=== PATIENT | male | born 1935 | race African-American/Black ===

== ENCOUNTER 2018-03-29 14:57 | Observation (INO) ==
[2018-03-29 15:39] LABS: Basophils % 0.6 % (0.1-2.0); Eosinophils # 0.2 K/mm3 (0.0-0.4); Eosinophils % 2.3 % (0.1-12.0); Hematocrit 48.4 % (42.0-52.0); Hemoglobin 15.4 g/dL (14.1-18.0); Lymphocytes # 1.5 K/mm3 (0.7-4.5); Lymphocytes % 23.3 K/mm3 (10-50); Mean Corpuscular HGB Conc 31.7 g/dL (31.8-35.4); Mean Corpuscular Hemoglobin 27.6 pg (27.0-31.2); Mean Platelet Volume 7.3 fl (7.4-10.4); Monocytes # 0.6 K/mm3 (0.1-1.0); Monocytes % 9.4 % (1.7-9.3); Neutrophils # 4.3 K/mm3 (1.8-7.8); Neutrophils % 64.4 % (37.0-80.0); Platelet Count 234 K/mm3 (142-424); Red Blood Count 5.56 M/mm3 (4.60-6.20); Red Cell Distribution Width 15.4 % (11.5-17.5); White Blood Count 6.6 K/mm3 (4.8-10.8)
[2018-03-29 16:03] LABS: Alanine Aminotransferase 24 U/L (12-78); Albumin Level 3.7 gm/dL (3.4-5.0); Albumin/Globulin Ratio 0.8 (1.1-1.8); Alkaline Phosphatase 129 U/L (46-116); Aspartate Amino Transferase 21 U/L (15-37); Bilirubin,Total 0.4 mg/dL (0.2-1.0); Blood Urea Nitrogen 23 mg/dL (7-18); Calcium 9.3 mg/dL (8.5-10.1); Carbon Dioxide 21 mmol/L (21.0-32.0); Chloride 106 mmol/L (98-107); Creatine Kinase 154 U/L (39-308); Globulin 4.4 gm/dl (1.3-3.2); Glucose 119 mg/dL (74-106); Sodium 140 mmol/L (136-145); Total Protein,Serum 8.1 gm/dL (6.4-8.2)
--- NOTE | 2018-03-29 16:27 | Emergency Department Note ---
ED Disposition Clinical Impression: COPD with exacerbation, Lung cancer, Tobacco use Disposition: Still a Patient Condition on Discharge: Fair Referrals: Annette Lorenz APRN [Primary Care Provider] - - Critical Care Critical Care Time: No Attestation: On 03/29/18, the high probability of a clinically significant, sudden or life threatening deterioration of the following system(s) required my full and direct attention, intervention and personal management. The time I documented below is in addition to time spent performing reported procedures but includes the following listed in this critical care notation. Medical Decision Making - Medical Records Medical records reviewed: Yes: I reviewed the patient's medical records. - Gabo Inquiry Pt receiving controlled substance: No Gabo was queried for this patient: No Vital Signs: 03/29/18 15:02 03/29/18 15:10 03/29/18 16:17 Temperature 97.8 F Temperature Source Axillary Pulse Rate 96 H Pulse Rate [Right Brachial] 96 H 92 H Respiratory Rate 20 20 Blood Pressure [Right Arm] 113/70 136/72 Blood Pressure Mean [Right Arm] 84 93 Blood Pressure Source [Right Arm] Automatic Cuff Automatic Cuff Blood Pressure Position [Right Arm] Sitting Sitting 02 Sat by Pulse Oximetry 95 98 Oxygen Delivery Method Room Air Room Air 03/29/18 17:30 03/29/18 17:40 Temperature Temperature Source Pulse Rate 81 78 Pulse Rate [Right Brachial] Respiratory Rate Blood Pressure [Right Arm] Blood Pressure Mean [Right Arm] Blood Pressure Source [Right Arm] Blood Pressure Position [Right Arm] 02 Sat by Pulse Oximetry Oxygen Delivery Method - Lab Data Lab Results 03/29/18 15:07: WBC 6.6, RBC 5.56, Hgb 15.4, Hct 48.4, MCV 87.0, MCH 27.6, MCHC 31.7 L, RDW 15.4, Plt Count 234, MPV 7.3 L, Neut % (Auto) 64.4, Lymph % (Auto) 23.3, Gar[place] % (Auto) 9.4 H, Eos % (Auto) 2.3, Baso % (Auto) 0.6, Neut # (Auto) 4.3, Lymph # (Auto) 1.5, [place] # (Auto) 0.6, Eos # (Auto) 0.2, Baso # (Auto) 0.0 03/29/18 15:07: Sodium 140, Potassium 4.0, Chloride 106, Carbon Dioxide 21, Anion Gap 17.0 H, BUN 23 H, Creatinine 1.14, Estimated Creat Clear 44, Estimated GFR 62, Est GFR ( Amer) 75, Glucose 119 H, Calcium 9.3, Total Bilirubin 0.4, AST 21, ALT 24, Alkaline Phosphatase 129 H, Total Creatine Kinase 154, CK-MB (CK-2) 2.0, CK-MB (CK-2) Rel Index 1.3, Troponin I < 0.02, Total Protein 8.1, Albumin 3.7, Globulin 4.4 H, Albumin/Globulin Ratio 0.8 L Result diagrams: 03/29/18 15:07 03/29/18 15:07 Orders (Tests/Meds): ED MEDICATIONS Generic Name Dose Route Start Last Admin Trade Name Freq PRN Reason Stop Dose Admin Albuterol/Ipratropium 3 ml 03/29/18 16:30 03/29/18 18:12 Duoneb 3ml [facility] 04/28/18 16:29 3 ml Q1H VIRA Administration Ceftriaxone Sodium 1 gm/ 50 mls @ 100 mls/hr 03/29/18 16:30 03/29/18 17:18 Sodium Chloride IV 04/12/18 16:29 100 mls/hr Q24H VIRA Administration Protocol Discontinued Medications Generic Name Dose Route Start Last Admin Trade Name Freq PRN Reason Stop Dose Admin Albuterol/Ipratropium 3 ml 03/29/18 15:07 03/29/18 15:10 Duoneb 3ml [facility] 03/29/18 15:08 3 ml ONCE ONE Administration Methylprednisolone Sodium Succinate 125 mg 03/29/18 16:23 03/29/18 17:15 Solu-Medrol 125mg/2ml Vial IV 03/29/18 16:24 125 mg ONCE ONE Administration ORDERS Category Date Time Status Blood Culture Stat Micro 03/29/18 15:07 Received - Radiology Data #1 Image(s): Chest Image Reviewed: Yes I reviewed the patient's radiology image Preliminary Findings: Abnormal Chronic changes with left perihilar mass no acute change. Medical Decision Narrative: 89 sinus rhythm with poor R-wave progression no ST elevation or T-wave inversions no acute findings. After 2 DuoNeb's and steroids IV he felt 50% better and started wheezing. I called and discussed with his primary care physician Dr. Umana who agreed to admit him for IV steroids, IV antibiotics and nebulizer treatment. She was agreeable. Resp/SOB HPI - General Chief Complaint: Shortness of Breath/Dyspnea Stated Complaint: SOA Time Seen by Provider: 03/29/18 15:15 Mode of Arrival: Ambulatory Limitations: No Limitations Description of Symptoms (Recalled from ER Triage Doc. by RN): Patient endorsing SOA for a couple weeks but worse today. Dyspnea with exertion. - History of Present Illness 83 years old -[place] male with history of COPD lung cancer who continues to smoke. He presented to the ED with a 3 week history of progressive shortness of breath with no fever no chills no productive sputum no chest pain. He denies nausea vomiting diarrhea dysuria or hematuria. MD Complaint: shortness of breath Onset (ago): week(s) (3 weeks3 weeks.) Context: occurred during exertion Severity: mild Consistency/Duration: constant Relieving factors: rest Exacerbating factors: exertion Known history of: COPD Associated symptoms: denies other symptoms Treatment prior to arrival: none - Related Data Home Medications Medication Instructions Recorded Confirmed amlodipine 5 mg tablet 5 mg PO DAILY tab 01/18/18 aspirin 325 mg tablet 325 mg PO DAILY PRN tab 01/18/18 atorvastatin 10 mg tablet 10 mg PO DAILY tab 01/18/18 buspirone 15 mg tablet 15 mg PO BID 01/18/18 glycopyrrolate 9 mcg-formoterol 2 puff INHALATION BID 01/18/18 4.8 mcg HFA aerosol inhaler ipratropium-albuterol 0.5 mg-3 3 ml INHALATION QID ml 01/18/18 mg(2.5 mg base)/3 mL nebulization soln metoprolol tartrate 50 mg tablet 50 mg PO BID 01/18/18 omeprazole magnesium 20 mg 20 mg PO DAILY tab 01/18/18 tablet,delayed release tamsulosin 0.4 mg capsule 0.4 mg PO DAILY cap 01/18/18 Previous Rx's Medication Instructions Recorded acetaminophen 300 mg-codeine 30 mg 1 tab PO Q8H PRN #90 tab 01/19/18 tablet gabapentin 400 mg capsule 400 mg PO TID #90 cap 01/19/18 famotidine 20 mg tablet 20 mg PO BID #180 tab 02/09/18 ipratropium-albuterol 0.5 mg-3 3 ml INHALATION Q4-6H PRN #180 ml 02/09/18 mg(2.5 mg base)/3 mL nebulization soln diltiazem CD 240 mg 240 mg PO DAILY #90 cap 03/27/18 capsule,extended release 24 hr Allergies Allergy/AdvReac Type Severity Reaction Status Date / Time tramadol [TRAMADOL] Allergy Unknown HIVES/ITCHI Verified 03/29/18 15:06 [facility] History I have reviewed the patient's past medical history: Yes Medical History: Reports:: Anxiety, Cancer, Chronic Obstructive Pulmonary Disease (COPD), Gastroesophageal Reflux Disease(GERD), Hyperlipidemia Denies:: Diabetes Mellitus Type 2 Comment: ENLARGED PROSTATE, KNEE PAIN AND SWELLING,NEUROPATHY, DIZZY SPELLS Other Surgeries: Yes: Cancer Surgery, Colonoscopy, Other Amputation: No 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 - Social History Smoking Status: Current every day smoker Tobacco Type: cigarettes # Packs/Day (cigarettes): 1 Alcohol Intake: never Substance Use Type: denies use Occupational Status: retired Housing: apartment Household Members: none - Psychiatric History Expresses thoughts of harming self/others: None Suicide Plan Description: No Plan Pschychiatric History:: Reports:: Anxiety Family Hx:: Non-contributory ROS Obtained: Yes All systems reviewed & no additional complaints Physical Exam - General General appearance: alert, in no apparent distress - Head Head exam: atraumatic, normocephalic, normal inspection - Eye Eye exam: Present: normal appearance, PERRL, EOMI - ENT ENT exam: Present: normal exam, normal oropharynx, mucous membranes moist, TM's normal bilaterally, normal external ear exam - Neck Neck exam: Present: normal inspection, full ROM, trachea midline. Absent: meningismus, lymphadenopathy - Chest Chest inspection: Present: normal inspection, symmetric chest wall rise. Absent : tenderness - Respiratory Respiratory exam: Present: other (Diminished air entry bilateral. ) - Cardiovascular Cardiovascular exam: Present: regular rate, normal rhythm. Absent: JVD - Abdominal Exam Abdominal exam: Present: soft, normal bowel sounds. Absent: distention, tenderness, guarding - Extremities Exam Extremities exam: Present: normal inspection, full ROM, normal capillary refill. Absent: calf tenderness - Back Exam Back exam: Present: normal inspection. Absent: tenderness - Neurological Exam Neurological exam: Present: alert, oriented X3, CN II-XII intact, motor sensory deficit, reflexes normal (Patient is in no cardiopulmonary distress he provided history. ) - Psychiatric Psychiatric exam: Present: normal affect, normal mood - Skin Skin exam: Present: warm, dry, intact, normal color - Lymphatic Lymphatic Findings: no adenopathy
[2018-03-30 06:29] LABS: Basophils % 0.1 % (0.1-2.0); Eosinophils % 0.9 % (0.1-12.0); Hematocrit 46.2 % (42.0-52.0); Lymphocytes # 0.5 K/mm3 (0.7-4.5); Lymphocytes % 10.8 K/mm3 (10-50); Mean Corpuscular HGB Conc 32.5 g/dL (31.8-35.4); Mean Corpuscular Hemoglobin 28.2 pg (27.0-31.2); Mean Platelet Volume 7.7 fl (7.4-10.4); Monocytes # 0.2 K/mm3 (0.1-1.0); Monocytes % 3.3 % (1.7-9.3); Neutrophils # 4.1 K/mm3 (1.8-7.8); Neutrophils % 84.8 % (37.0-80.0); Platelet Count 194 K/mm3 (142-424); Red Blood Count 5.31 M/mm3 (4.60-6.20); Red Cell Distribution Width 15.3 % (11.5-17.5); White Blood Count 4.8 K/mm3 (4.8-10.8)
[2018-03-30 06:38] LABS: Albumin Level 3.3 gm/dL (3.4-5.0); Albumin/Globulin Ratio 0.8 (1.1-1.8); Anion Gap 17.5 mEq/L (5-15); Bilirubin,Total 0.3 mg/dL (0.2-1.0); Calcium 9.2 mg/dL (8.5-10.1); Globulin 4.2 gm/dl (1.3-3.2); Potassium 3.5 mmoL/L (3.5-5.1); Total Protein,Serum 7.5 gm/dL (6.4-8.2)
--- NOTE | 2018-03-30 07:32 | Pharmacy Consult Notes ---
[facility] Pharmacy VTE Monitoring - Patient Demographics Admission date: 03/29/18 Report Date: 03/30/18 Time: 07:31 Allergies/Adverse Reactions: Patient Allergies tramadol [TRAMADOL] Allergy (Unknown, Verified 03/29/18 15:06) HIVES/ITCHING Height: 1.78 m Weight: 61.944 kg Patient Problems: Current Active Problems COPD with exacerbation (Acute) Lung cancer (Acute) Tobacco use (Acute) - VTE Risk Labs: VTE Related Lab Results Hgb 15.0 g/dL (14.1-18.0) 03/30/18 06:00 Hct 46.2 % (42.0-52.0) 03/30/18 06:00 Plt Count 194 K/mm3 (142-424) 03/30/18 06:00 BUN 19 mg/dL (7-18) H 03/30/18 06:00 Creatinine 0.96 mg/dL (0.70-1.30) 03/30/18 06:00 Estimated Creat Clear 51 mL/min (0-300) 03/30/18 06:00 Clinical Trial Participant: No - Prophylaxis VTE Prophylaxis Ordered?: Yes Types of VTE Prophylaxis: TEDS Knee High Location of Applied Device: Bilateral Lower Extremeties
--- NOTE | 2018-03-30 13:07 | H&P/Discharge Summary ---
General - General Admission date:: 03/29/18 Discharge date: 03/30/18 *Admission Date: 03/29/18 *Chief complaint: sob *History of present illness: this bm who has known copd and has been on home o2/inhalers and nebulizer presents to the ed with diff breathing despite op treatment - he as seen in the ed -3 years old -[place] male with history of COPD lung cancer who continues to smoke. He presented to the ED with a 3 week history of progressive shortness of breath with no fever no chills no productive sputum no chest pain. He denies nausea vomiting diarrhea dysuria or hematuria. [facility] History I have reviewed the patient's past medical history: Yes Medical History: Reports:: Anxiety, Cancer, Chronic Obstructive Pulmonary Disease (COPD), Gastroesophageal Reflux Disease(GERD), Hyperlipidemia Denies:: Diabetes Mellitus Type 2 Other Surgeries: Yes: Cancer Surgery, Colonoscopy, Other Amputation: No Fractures: No - *Social History Smoking Status: Current every day smoker Tobacco Type: cigarettes # Packs/Day (cigarettes): 1 Alcohol Intake: former Substance Use Type: denies use Occupational Status: retired Housing: apartment Household Members: none - Psychiatric History Expresses thoughts of harming self/others: None Suicide Plan Description: No Plan Pschychiatric History:: Reports:: Anxiety *Family Hx:: Non-contributory Review of Systems - Review of Systems Review of systems:: pertinent systems reviewed and negative unless documented below - Constitutional Reports lack of energy, Denies fever(s) - Eyes Denies change in vision - ENT Denies difficulty swallowing - *Cardiovascular Denies chest pain at rest - *Respiratory Reports cough, Reports shortness of breath - *Gastrointestinal Denies vomiting - *Musculoskeletal Denies joint pain, Denies joint swelling - Integumentary/Breasts Denies rash - *Neurologic Denies localized weakness - Psychiatric Denies anxiety Exam Vital signs and Labs for Last 24 Hours: Temp Pulse Resp BP Pulse Ox 98.0 F 111 H 24 96/57 98 03/30/18 07:34 03/30/18 07:34 03/30/18 07:34 03/30/18 07:34 03/30/18 07:34 Laboratory Results - last 24 hr 03/29/18 15:07: WBC 6.6, RBC 5.56, Hgb 15.4, Hct 48.4, MCV 87.0, MCH 27.6, MCHC 31.7 L, RDW 15.4, Plt Count 234, MPV 7.3 L, Neut % (Auto) 64.4, Lymph % (Auto) 23.3, [place] % (Auto) 9.4 H, Eos % (Auto) 2.3, Baso % (Auto) 0.6, Neut # (Auto) 4.3, Lymph # (Auto) 1.5, [place] # (Auto) 0.6, Eos # (Auto) 0.2, Baso # (Auto) 0.0 03/29/18 15:07: Sodium 140, Potassium 4.0, Chloride 106, Carbon Dioxide 21, Anion Gap 17.0 H, BUN 23 H, Creatinine 1.14, Estimated Creat Clear 44, Estimated GFR 62, Est GFR ( Amer) 75, Glucose 119 H, Calcium 9.3, Total Bilirubin 0.4, AST 21, ALT 24, Alkaline Phosphatase 129 H, Total Creatine Kinase 154, CK-MB (CK-2) 2.0, CK-MB (CK-2) Rel Index 1.3, Troponin I < 0.02, Total Protein 8.1, Albumin 3.7, Globulin 4.4 H, Albumin/Globulin Ratio 0.8 L 03/30/18 06:00: WBC 4.8 D, RBC 5.31, Hgb 15.0, Hct 46.2, MCV 87.0, MCH 28.2, MCHC 32.5, RDW 15.3, Plt Count 194, MPV 7.7, Neut % (Auto) 84.8 H, Lymph % (Auto ) 10.8, [place] % (Auto) 3.3, Eos % (Auto) 0.9, Baso % (Auto) 0.1, Neut # (Auto) 4.1, Lymph # (Auto) 0.5 L, [place] # (Auto) 0.2, Eos # (Auto) 0.0, Baso # (Auto) 0.0 03/30/18 06:00: Sodium 139, Potassium 3.5, Chloride 104, Carbon Dioxide 21, Anion Gap 17.5 H, BUN 19 H, Creatinine 0.96, Estimated Creat Clear 51, Estimated GFR 75, Est GFR ( Amer) 91 D, Glucose 154 H D, Calcium 9.2, Total Bilirubin 0.3, AST 22, ALT 25, Alkaline Phosphatase 122 H, Total Protein 7.5, Albumin 3.3 L D, Globulin 4.2 H, Albumin/Globulin Ratio 0.8 L I & O for Last 24 hours: Intake & Output 03/28/18 03/29/18 03/30/18 03/31/18 11:59 11:59 11:59 11:59 Intake Total 1205 / 1205 Output Total 550 / 550 Balance 655 / 655 Weight 136 lb 9 oz - Constitutional no acute distress, thin - *Routine HEENT Exam Head: Present: normocephalic Eye: Present: EOMI, PERRL ENT: Present: mucous membranes dry - *Routine Neck Exam Present: supple - *Routine Respiratory Exam Present: decreased breath sounds, rhonchi. Absent: respiratory distress - *Routine Cardiovascular Exam Present: RRR, murmur, S4 - *Routine Abdominal Exam Present: soft - *Routine Extremities Exam Absent: edema - *Routine Skin Exam Present: intact - *Routine Neurological Exam Present: alert, oriented X3, CN II-XII intact - Routine Psychiatric Exam Present: normal affect Hospital Course Hospital Course: pt with good response to iv steroids and resp care - Results Labs on day of discharge: Labs from last 24 hours 03/30/18 03/30/18 03/29/18 06:00 06:00 15:07 WBC 4.8 D RBC 5.31 Hgb 15.0 Hct 46.2 MCV 87.0 MCH 28.2 MCHC 32.5 RDW 15.3 Plt Count 194 MPV 7.7 Neut % (Auto) 84.8 H Lymph % (Auto) 10.8 Bl[place] % (Auto) 3.3 Eos % (Auto) 0.9 Baso % (Auto) 0.1 Neut # (Auto) 4.1 Lymph # (Auto) 0.5 L [place] # (Auto) 0.2 Eos # (Auto) 0.0 Baso # (Auto) 0.0 Sodium 139 140 Potassium 3.5 4.0 Chloride 104 106 Carbon Dioxide 21 21 Anion Gap 17.5 H 17.0 H BUN 19 H 23 H Creatinine 0.96 1.14 Estimated Creat Clear 51 44 Estimated GFR 75 62 Est GFR ( Amer) 91 D 75 Glucose 154 H D 119 H Calcium 9.2 9.3 Total Bilirubin 0.3 0.4 AST 22 21 ALT 25 24 Alkaline Phosphatase 122 H 129 H Total Creatine Kinase 154 CK-MB (CK-2) 2.0 CK-MB (CK-2) Rel Index 1.3 Troponin I < 0.02 Total Protein 7.5 8.1 Albumin 3.3 L D 3.7 Globulin 4.2 H 4.4 H Albumin/Globulin Ratio 0.8 L 0.8 L 03/29/18 15:07 WBC 6.6 RBC 5.56 Hgb 15.4 Hct 48.4 MCV 87.0 MCH 27.6 MCHC 31.7 L RDW 15.4 Plt Count 234 MPV 7.3 L Neut % (Auto) 64.4 Lymph % (Auto) 23.3 Blanco % (Auto) 9.4 H Eos % (Auto) 2.3 Baso % (Auto) 0.6 Neut # (Auto) 4.3 Lymph # (Auto) 1.5 [place] # (Auto) 0.6 Eos # (Auto) 0.2 Baso # (Auto) 0.0 Sodium Potassium Chloride Carbon Dioxide Anion Gap BUN Creatinine Estimated Creat Clear Estimated GFR Est GFR ( Amer) Glucose Calcium Total Bilirubin AST ALT Alkaline Phosphatase Total Creatine Kinase CK-MB (CK-2) CK-MB (CK-2) Rel Index Troponin I Total Protein Albumin Globulin Albumin/Globulin Ratio DS: Diagnosis - Discharge Diagnosis (1) COPD with exacerbation Status: Acute (2) Tobacco use Status: Acute Discharge Medications Discharge Medications: Home Medications Medication Instructions Recorded Confirmed Type amlodipine 5 mg tablet 5 mg PO DAILY tab 01/18/18 03/30/18 History aspirin 325 mg tablet 325 mg PO DAILY PRN tab 01/18/18 03/30/18 History atorvastatin 10 mg tablet 10 mg PO DAILY tab 01/18/18 03/30/18 History buspirone 15 mg tablet 15 mg PO BID 01/18/18 03/30/18 History glycopyrrolate 9 mcg-formoterol 2 puff INHALATION BID 01/18/18 03/30/18 History 4.8 mcg HFA aerosol inhaler metoprolol tartrate 50 mg tablet 50 mg PO BID 01/18/18 03/30/18 History omeprazole magnesium 20 mg 20 mg PO DAILY tab 01/18/18 03/30/18 History tablet,delayed release tamsulosin 0.4 mg capsule 0.4 mg PO DAILY cap 01/18/18 03/30/18 History Famotidine [Acid Marionette Performer] 20 mg PO BID 03/29/18 03/29/18 History Gabapentin [Gabapentin 400mg Cap] 400 mg PO TID 03/29/18 03/29/18 History dilTIAZem HCl [Diltiazem 240mg 240 mg PO DAILY 03/29/18 03/29/18 History 24Hr ER Cap] Ipratropium/Albuterol Sulfate 3 ml INHALATION QID 03/30/18 03/30/18 History [Albut-Ipratropium 2.5mg-0.5mg/3 ml] Ipratropium/Albuterol Sulfate 3 ml IH Q4-6H PRN 03/30/18 03/30/18 History [Duoneb 3mL neb] LORazepam [Ativan] 0.5 mg PO HS 03/30/18 03/30/18 History
== END 2018-03-30 15:05 | disposition home or self-care (01) ==
LOC: ER 14:57 → 2ND 14:57
PROVIDERS: ADMIT Emergency Medicine; ATTEND Emergency Medicine

== ENCOUNTER 2018-06-03 19:04 | Inpatient (IN) ==
[2018-06-03 19:31] LABS: Basophils # 0.1 K/mm3 (0-0.2); Basophils % 0.9 % (0.1-2.0); Eosinophils # 0.3 K/mm3 (0.0-0.4); Eosinophils % 4.7 % (0.1-12.0); Hematocrit 42.9 % (42.0-52.0); Hemoglobin 15.1 g/dL (14.1-18.0); Lymphocytes # 1.4 K/mm3 (0.7-4.5); Lymphocytes % 23.5 K/mm3 (10-50); Mean Corpuscular HGB Conc 35.1 g/dL (31.8-35.4); Mean Corpuscular Hemoglobin 31.2 pg (27.0-31.2); Mean Corpuscular Volume 88.8 fl (80-94); Mean Platelet Volume 7.5 fl (7.4-10.4); Monocytes # 0.8 K/mm3 (0.1-1.0); Monocytes % 13.5 % (1.7-9.3); Neutrophils # 3.3 K/mm3 (1.8-7.8); Neutrophils % 57.5 % (37.0-80.0); Platelet Count 217 K/mm3 (142-424); Red Blood Count 4.83 M/mm3 (4.60-6.20); Red Cell Distribution Width 15.3 % (11.5-17.5); White Blood Count 5.8 K/mm3 (4.8-10.8)
--- NOTE | 2018-06-03 19:36 | Emergency Department Note ---
ED Disposition Condition on Discharge: Undetermined - Critical Care Critical Care Time: No <Deandra Mccarty - Last Filed: 06/03/18 19:58> Condition on Discharge: Fair - Critical Care Critical Care Time: No <Dash Kerns - Last Filed: 06/03/18 22:17> Clinical Impression: COPD exacerbation Lung cancer Qualifiers: Laterality: unspecified laterality Lung location: unspecified part of lung Qualified Code(s): C34.90 - Malignant neoplasm of unspecified part of unspecified bronchus or lung Pneumonia Qualifiers: Pneumonia type: due to unspecified organism Laterality: left Lung location: lower lobe of lung Qualified Code(s): J18.1 - Lobar pneumonia, unspecified organism Disposition: Still a Patient Referrals: Jeff Umana MD [Primary Care Provider] - Attestation: On 06/03/18, the high probability of a clinically significant, sudden or life threatening deterioration of the following system(s) required my full and direct attention, intervention and personal management. The time I documented below is in addition to time spent performing reported procedures but includes the following listed in this critical care notation. Medical Decision Making - [place] Inquiry Pt receiving controlled substance: No - Lab Data Lab results reviewed: Yes: I reviewed the patient's lab results. Result diagrams: 06/03/18 19:20 06/03/18 19:20 - ECG Data Tracing #1 I reviewed this ECG and interpreted as documented below: ECG initial impression date: 06/03/18 ECG initial impression time: 19:40 ECG normal with no acute: arrhythmias, ischemia, conduction abnormalities, chamber hypertrophy Normal Sinus Rhythm: Yes <Deandra Mccarty - Last Filed: 06/03/18 19:58> - Lab Data Result diagrams: 06/03/18 19:20 06/03/18 19:20 - CT Data CT Scan: Chest Time Received: 21:[address] Reviewed: Yes: I discussed the CT results w/the radiologist - Physician Consults Physician Consulted: Tim Umana Time: 22:10 Reason -: Admission Comment/Response: Agrees to admit the patient to the hospital. We discussed the patient's clinical information, including history, exam, laboratory and radiology results and ED course. Per hospital procedure, I will write temporary bridge inpatient orders on the patient. Specific orders requested by the admitting physician: Continue antibiotics, steroids, nebulizer treatments <Dash Kerns - Last Filed: 06/03/18 22:17> Vital Signs: 06/03/18 19:12 06/03/18 19:35 06/03/18 19:36 Temperature 98.8 F Temperature Source Oral Pulse Rate Pulse Rate [Right Brachial] 87 68 Respiratory Rate 18 16 Blood Pressure [Right Arm] 116/72 109/65 Blood Pressure Mean [Right Arm] 86 79 Blood Pressure Source [Right Arm] Automatic Cuff Blood Pressure Position [Right Arm] Sitting 02 Sat by Pulse Oximetry 99 100 99 Oxygen Delivery Method Nasal Cannula Nasal Cannula Oxygen Flow Rate (LPM) 2 2 06/03/18 20:03 06/03/18 20:50 06/03/18 21:23 Temperature Temperature Source Pulse Rate Pulse Rate [Right Brachial] 71 78 68 Respiratory Rate 18 20 16 Blood Pressure [Right Arm] 109/65 128/68 118/68 Blood Pressure Mean [Right Arm] 79 88 84 Blood Pressure Source [Right Arm] Automatic Cuff Automatic Cuff Blood Pressure Position [Right Arm] Sitting Sitting 02 Sat by Pulse Oximetry 100 97 99 Oxygen Delivery Method Nasal Cannula Nasal Cannula Nasal Cannula Oxygen Flow Rate (LPM) 2 2 2 06/03/18 21:39 Temperature Temperature Source Pulse Rate 69 Pulse Rate [Right Brachial] Respiratory Rate Blood Pressure [Right Arm] Blood Pressure Mean [Right Arm] Blood Pressure Source [Right Arm] Blood Pressure Position [Right Arm] 02 Sat by Pulse Oximetry 100 Oxygen Delivery Method Nasal Cannula Oxygen Flow Rate (LPM) 2 - Lab Data Lab Results 06/03/18 19:20: WBC 5.8, RBC 4.83, Hgb 15.1, Hct 42.9, MCV 88.8, MCH 31.2, MCHC 35.1, RDW 15.3, Plt Count 217, MPV 7.5, Neut % (Auto) 57.5, Lymph % (Auto) 23.5 , [place] % (Auto) 13.5 H, Eos % (Auto) 4.7, Baso % (Auto) 0.9, Neut # (Auto) 3.3, Lymph # (Auto) 1.4, [place] # (Auto) 0.8, Eos # (Auto) 0.3, Baso # (Auto) 0.1 06/03/18 19:20: Sodium 135 L, Potassium 3.7, Chloride 102, Carbon Dioxide 25, Anion Gap 11.7, BUN 15, Creatinine 0.90, Estimated Creat Clear 51, Estimated GFR 81, Est GFR ( Amer) 98, Glucose 122 H, Calcium 9.3, Total Bilirubin 0.4, AST 16, ALT 19, Alkaline Phosphatase 115, Troponin I < 0.02, Total Protein 7.9, Albumin 3.5, Globulin 4.4 H, Albumin/Globulin Ratio 0.8 L 06/03/18 19:20: Lactic Acid 1.6 06/03/18 19:20: D-Dimer 2500 H* 06/03/18 19:35: Urine Color Yellow, Urine Appearance Clear, Urine pH 7.0, Ur Specific [place] 1.020, Urine Protein Negative, Urine Glucose (UA) Negative, Urine Ketones Negative, Urine Blood Negative, Urine Nitrate Negative, Urine Bilirubin Negative, Urine Urobilinogen 0.2, Ur Leukocyte Esterase Negative, Urine WBC Occasional, Amorphous Sediment Trace Orders (Tests/Meds): ED MEDICATIONS Generic Name Dose Route Start Last Admin Trade Name Tati PRN Reason Stop Dose Admin Ceftriaxone Sodium 1 gm/ 50 mls @ 100 mls/hr 06/03/18 21:30 06/03/18 21:57 Sodium Chloride IV 06/17/18 21:29 100 mls/hr Q24H VIRA Administration Protocol Azithromycin 500 mg/ Sodium 250 mls @ 250 mls/hr 06/03/18 21:30 Chloride IV 06/17/18 21:29 Q24H VIRA Protocol Discontinued Medications Generic Name Dose Route Start Last Admin Trade Name Tati PRN Reason Stop Dose Admin Albuterol/Ipratropium 3 ml 06/03/18 21:28 06/03/18 21:37 Duoneb 3ml Neb IH 06/03/18 21:29 3 ml ONCE ONE Administration Sodium Chloride 1,000 mls @ 999 mls/hr 06/03/18 19:30 06/03/18 19:35 Sod Chlor 0.9% 1000ml Bag IV 06/03/18 20:30 999 mls/hr .Q1H1M VIRA Administration Iopamidol 70 ml 06/03/18 20:49 06/03/18 20:50 [id number]; 100ml Vial IV 06/03/18 20:50 70 ml ONCE ONE Administration Methylprednisolone Sodium Succinate 125 mg 06/03/18 21:28 06/03/18 21:57 Solu-Medrol 125mg/2ml Vial IV 06/03/18 21:29 125 mg ONCE ONE Administration Ondansetron HCl 4 mg 06/03/18 19:24 06/03/18 19:35 Zofran 4mg/2ml Vial IV 06/03/18 19:25 4 mg ONCE ONE Administration Sodium Chloride 50 ml 06/03/18 20:49 06/03/18 20:50 Rad-Ns 50ml Vial IV 06/03/18 20:50 50 ml ONCE ONE Administration Sodium Chloride 10 ml 06/03/18 20:49 06/03/18 20:50 Rad-Saline Flush 10ml Syringe IV 06/03/18 20:50 10 ml ONCE ONE Administration ORDERS Category Date Time Status CT Chest w/PE protocol [CT angio chest] Stat Cat Scan 06/03/18 19:51 Taken Blood Culture Stat Micro 06/03/18 19:35 Ordered ECG Request by Dr/Nse Stat Y 06/03/18 19:19 Ordered - CT Data Findings Narrative: Lung cancer. Linear defects on the left side, possibly residual of prior or chronic PE, but no acute PE seen. Consolidative opacity in the posterior left lung base, new from 05/23/17, measuring 3.3 x 2.8 cm. Could represent neoplastic disease versus pneumonia. ( Dash Kerns) - ECG Data Tracing #1 NSR, no change from 03/29/18; poor R w progression; NSR with fusion complexes; normal axis and intervals (Deandra Mccarty) Resp/SOB HPI - General Mode of Arrival: Wheelchair Source of Information: Patient Limitations: Physical Limitations Description of Symptoms (Recalled from ER Triage Doc. by RN): Reports chemo one week ago, and since then he has progessively gotten weaker at home. Pt has liver cancer. Reports being treated for pneumonia 2 weeks ago. Home O2 dependent. Reports nausea and vomiting. Denies abd pain, denies cp. - History of Present Illness MD Complaint: shortness of breath Onset (ago): hour(s) Context: recent illness Severity: mild Consistency/Duration: intermittent Relieving factors: oxygen Exacerbating factors: nothing Known history of: other (lung ca) Associated symptoms: denies other symptoms Treatment prior to arrival: oxygen - Related Data Home oxygen amount: 2 liters <Deandra Mccarty - Last Filed: 06/03/18 19:58> <Dash Kerns - Last Filed: 06/03/18 22:17> - General Chief Complaint: Weakness Stated Complaint: sick Time Seen by Provider: 06/03/18 19:33 - History of Present Illness Patient followed by Dr. 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 He has acute malaise, "smothering " feeling for the last few hours, feels SOB, no sputum, no fever, no calf pain, no palpitations or cephalgia, no syncope. Uses a cane to ambulate. Denies hemoptysis, denies hematemesis, denies melena. (Deandra Mccarty) - Related Data Home Medications Medication Instructions Recorded Confirmed amlodipine 5 mg tablet 5 mg PO DAILY tab 01/18/18 06/03/18 aspirin 325 mg tablet 325 mg PO DAILY PRN tab 01/18/18 06/03/18 atorvastatin 10 mg tablet 10 mg PO DAILY tab 01/18/18 06/03/18 buspirone 15 mg tablet 15 mg PO BID 01/18/18 06/03/18 glycopyrrolate 9 mcg-formoterol 2 puff INHALATION BID 01/18/18 06/03/18 4.8 mcg HFA aerosol inhaler metoprolol tartrate 50 mg tablet 50 mg PO BID 01/18/18 06/03/18 omeprazole magnesium 20 mg 20 mg PO DAILY tab 01/18/18 06/03/18 tablet,delayed release Famotidine [Acid Garde Manager] 20 mg PO BID 03/29/18 06/03/18 dilTIAZem HCl [Diltiazem 240mg 240 mg PO DAILY 03/29/18 06/03/18 24Hr ER Cap] Ipratropium/Albuterol Sulfate 3 ml IH Q4-6H PRN 03/30/18 06/03/18 [Duoneb 3mL neb] Ipratropium/Albuterol Sulfate 3 ml IH TID 06/03/18 06/03/18 [Duoneb 3mL neb] Nicotine [Nicoderm Cq 14mg] 1 patch TRANSDERMA DAILY 06/03/18 06/03/18 Tamsulosin HCl [Flomax 0.4mg 0.4 mg PO HS 06/03/18 06/03/18 capsule] Previous Rx's Medication Instructions Recorded gabapentin 400 mg capsule 400 mg PO TID 30 Days #90 cap 05/19/18 hydrocodone 5 mg-acetaminophen 325 1 tab PO BID PRN 30 Days #60 tab 05/19/18 mg tablet lorazepam 0.5 mg tablet 0.5 mg PO HS #30 tab 05/19/18 Allergies Allergy/AdvReac Type Severity Reaction Status Date / Time tramadol [TRAMADOL] Allergy Unknown HIVES/ITCHI Verified 05/19/18 13:02 [facility] History I have reviewed the patient's past medical history: Yes Medical History: Reports:: Anxiety, Cancer (liver), Chronic Obstructive Pulmonary Disease (COPD), Gastroesophageal Reflux Disease(GERD), Hyperlipidemia Denies:: Diabetes Mellitus Type 1, Diabetes Mellitus Type 2, MRSA Comment: ENLARGED PROSTATE, KNEE PAIN AND SWELLING,NEUROPATHY, DIZZY SPELLS Other Surgeries: Yes: Cancer Surgery, Colonoscopy, Other Amputation: No 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 - Social History Smoking Status: Current every day smoker Tobacco Type: cigarettes # Packs/Day (cigarettes): 1 Alcohol Intake: never Alcohol Intake Frequency:: other Substance Use Type: denies use Occupational Status: retired Housing: apartment Household Members: none - Psychiatric History Expresses thoughts of harming self/others: None Suicide Plan Description: No Plan Pschychiatric History:: Reports:: Anxiety Family Hx:: Non-contributory <Deandra Mccarty M - Last Filed: 06/03/18 19:58> ROS Obtained: Yes All systems reviewed & no additional complaints - Constitutional Constitutional: Reports fatigue, Reports malaise, Reports weakness <Deandra Mccarty M - Last Filed: 06/03/18 19:58> Physical Exam - General General appearance: alert, in no apparent distress (thin, chronically ill appearing), cachectic - Head Head exam: atraumatic, normocephalic - Eye Eye exam: Present: normal appearance, PERRL, EOMI - ENT ENT exam: Present: normal exam - Neck Neck exam: Present: normal inspection, full ROM, trachea midline. Absent: meningismus, lymphadenopathy - Respiratory Respiratory exam: Present: normal lung sounds bilaterally (decreased at bases). Absent: respiratory distress - Cardiovascular Cardiovascular exam: Present: regular rate, normal rhythm, normal heart sounds - Abdominal Exam Abdominal exam: Present: soft, normal bowel sounds. Absent: distention, tenderness, guarding, organomegaly, ascites, mass, pulsatile mass - Extremities Exam Extremities exam: Present: normal inspection, full ROM, tenderness. Absent: normal capillary refill, pedal edema, calf tenderness - Neurological Exam Neurological exam: Present: alert, oriented X3. Absent: motor sensory deficit ( speech clear and fluent; alert; cooperative; nonfocal exam) - Psychiatric Psychiatric exam: Present: normal affect - Skin Skin exam: Present: warm, intact <Deandra Mccarty - Last Filed: 06/03/18 19:58>
[2018-06-03 19:42] LABS: Microscopic, Urine URINE MICROSCOPIC (MICROSCOPIC)
[2018-06-03 19:48] LABS: Alanine Aminotransferase 19 U/L (12-78); Albumin Level 3.5 gm/dL (3.4-5.0); Albumin/Globulin Ratio 0.8 (1.1-1.8); Alkaline Phosphatase 115 U/L (46-116); Anion Gap 11.7 mEq/L (5-15); Aspartate Amino Transferase 16 U/L (15-37); Bilirubin,Total 0.4 mg/dL (0.2-1.0); Blood Urea Nitrogen 15 mg/dL (7-18); Calcium 9.3 mg/dL (8.5-10.1); Carbon Dioxide 25 mmol/L (21.0-32.0); Chloride 102 mmol/L (98-107); Globulin 4.4 gm/dl (1.3-3.2); Glucose 122 mg/dL (74-106); Potassium 3.7 mmoL/L (3.5-5.1); Sodium 135 mmol/L (136-145); Total Protein,Serum 7.9 gm/dL (6.4-8.2)
[2018-06-03 19:54] LABS: Appearance,Urine CLEAR (Clear); Bilirubin,Urine Negative (Negative); Blood, Urine Negative (Negative); Color,Urine YELLOW (Yellow); Glucose,Urine (UA) Negative (Negative); Ketones,Urine Negative (Negative); Leukocyte Esterase,Urine Negative (Negative); Protein,Urine Negative (Negative); Urobilinogen,Urine 0.2 EU/dl (0.2)
[2018-06-03 19:59] LABS: Amorphous Sediment,Urine Trace /lpf; WBC,Urine Occasional #/hpf (0-3)
--- NOTE | 2018-06-04 10:54 | History & Physical Report ---
*Admission Date: 06/04/18 *Chief complaint: sob *History of present illness: 83-year-old male presents to the ER with complaints of shortness of breath, feeling like he is smothering, feels he cant catch his breath. denies fever, calf pain, palpitations, syncope. Patient followed by Dr. 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 Patient admitted for pneumonia [facility] History I have reviewed the patient's past medical history: Yes Medical History: Reports:: Anxiety, Cancer (liver), Chronic Obstructive Pulmonary Disease (COPD), Gastroesophageal Reflux Disease(GERD), Hyperlipidemia Denies:: Diabetes Mellitus Type 1, Diabetes Mellitus Type 2, MRSA Other Surgeries: Yes: Cancer Surgery, Colonoscopy, Other Amputation: No Fractures: No - *Social History Educational Level: Attended High School Smoking Status: Current every day smoker Tobacco Type: cigarettes # Packs/Day (cigarettes): 1 Alcohol Intake: never Alcohol Intake Frequency:: other Substance Use Type: denies use Occupational Status: retired Housing: apartment Household Members: none - Psychiatric History Expresses thoughts of harming self/others: None Suicide Plan Description: No Plan Pschychiatric History:: Reports:: Anxiety *Family Hx:: Non-contributory Review of Systems - Review of Systems Review of systems:: pertinent systems reviewed and negative unless documented below - Constitutional Reports fever(s), Reports weakness - Eyes Denies blurry vision - ENT Denies post nasal drip, Denies sore throat - *Cardiovascular Reports shortness of breath, Reports shortness of breath with activity, Denies chest pain at rest - *Respiratory Reports chest congestion, Reports shortness of breath, Denies change in phlegm color - *Gastrointestinal Denies black, tarry stools - *Genitourinary Denies urinary urgency - *Musculoskeletal Denies joint swelling, Denies muscle cramps - Integumentary/Breasts Denies rash - *Neurologic Reports weakness, Denies dizziness, Denies headache(s), Denies memory loss, Denies numbness, Denies tingling/numbness/burning sensations - Psychiatric Denies anxiety - Endocrine Denies excessive sweating - Hematologic/Lymphatic Denies enlarged lymph nodes - Allergic/Immunologic Denies lip swelling Meds Home Medications Medication Instructions Recorded Confirmed Type amlodipine 5 mg tablet 5 mg PO DAILY tab 01/18/18 06/03/18 History aspirin 325 mg tablet 325 mg PO DAILY tab 01/18/18 06/04/18 History atorvastatin 10 mg tablet 10 mg PO HS tab 01/18/18 06/04/18 History buspirone 15 mg tablet 15 mg PO BID 01/18/18 06/03/18 History glycopyrrolate 9 mcg-formoterol 2 puff INHALATION BID 01/18/18 06/03/18 History 4.8 mcg HFA aerosol inhaler metoprolol tartrate 50 mg tablet 50 mg PO BID 01/18/18 06/03/18 History omeprazole magnesium 20 mg 20 mg PO DAILY tab 01/18/18 06/03/18 History tablet,delayed release Famotidine [Acid [place] Puff Maker] 20 mg PO BID 03/29/18 06/03/18 History dilTIAZem HCl [Diltiazem 240mg 240 mg PO DAILY 03/29/18 06/03/18 History 24Hr ER Cap] Ipratropium/Albuterol Sulfate 3 ml IH Q4HP PRN 03/30/18 06/04/18 History [Duoneb 3mL neb] Ipratropium/Albuterol Sulfate 3 ml IH TID 06/03/18 06/03/18 History [Duoneb 3mL neb] Nicotine [Nicoderm Cq 14mg] 1 patch TRANSDERMA DAILY 06/03/18 06/03/18 History Tamsulosin HCl [Flomax 0.4mg 0.4 mg PO HS 06/03/18 06/03/18 History capsule] Allergies Allergy/AdvReac Type Severity Reaction Status Date / Time tramadol [TRAMADOL] Allergy Unknown HIVES/ITCHI Verified 05/19/18 13:02 NG Exam Vital signs and Labs for Last 24 Hours: Temp Pulse Resp BP Pulse Ox 98.0 F 107 H 18 126/58 100 06/04/18 08:22 06/04/18 10:17 06/04/18 08:22 06/04/18 08:22 06/04/18 08:22 Laboratory Results - last 24 hr 06/03/18 19:20: WBC 5.8, RBC 4.83, Hgb 15.1, Hct 42.9, MCV 88.8, MCH 31.2, MCHC 35.1, RDW 15.3, Plt Count 217, MPV 7.5, Neut % (Auto) 57.5, Lymph % (Auto) 23.5 , [place] % (Auto) 13.5 H, Eos % (Auto) 4.7, Baso % (Auto) 0.9, Neut # (Auto) 3.3, Lymph # (Auto) 1.4, [place] # (Auto) 0.8, Eos # (Auto) 0.3, Baso # (Auto) 0.1 06/03/18 19:20: Sodium 135 L, Potassium 3.7, Chloride 102, Carbon Dioxide 25, Anion Gap 11.7, BUN 15, Creatinine 0.90, Estimated Creat Clear 51, Estimated GFR 81, Est GFR ( Amer) 98, Glucose 122 H, Calcium 9.3, Total Bilirubin 0.4, AST 16, ALT 19, Alkaline Phosphatase 115, Troponin I < 0.02, Total Protein 7.9, Albumin 3.5, Globulin 4.4 H, Albumin/Globulin Ratio 0.8 L 06/03/18 19:20: Lactic Acid 1.6 06/03/18 19:20: D-Dimer 2500 H* 06/03/18 19:35: Urine Color Yellow, Urine Appearance Clear, Urine pH 7.0, Ur Specific [place] 1.020, Urine Protein Negative, Urine Glucose (UA) Negative, Urine Ketones Negative, Urine Blood Negative, Urine Nitrate Negative, Urine Bilirubin Negative, Urine Urobilinogen 0.2, Ur Leukocyte Esterase Negative, Urine WBC Occasional, Amorphous Sediment Trace I & O for Last 24 hours: Intake & Output 06/01/18 06/02/18 06/03/18 06/04/18 11:59 11:59 11:59 11:59 Intake Total 1640 / 1640 Output Total 600 / 600 Balance 1040 / 1040 Weight 138 lb 1 oz Microbiology Reports for the Last 24 Hours: Microbiology 06/04/18 03:11 Sputum - Expectorated Sputum Gram Stain - Final - Constitutional no acute distress, thin, chronically ill appearing - *Routine HEENT Exam Head: Present: normocephalic Eye: Present: PERRL ENT: Present: mucous membranes moist - *Routine Neck Exam Present: full ROM - *Routine Respiratory Exam Present: rhonchi, wheezes, diminished air movement - *Routine Cardiovascular Exam Present: RRR - *Routine Abdominal Exam Present: soft, normoactive bowel sounds - *Routine Extremities Exam Present: full ROM - Routine Back/Spine/Pelvis Exam Back/Spine: Present: full ROM - *Routine Skin Exam Present: intact - *Routine Neurological Exam Present: alert, oriented X3 - Routine Psychiatric Exam Present: normal affect, normal thought process H&P: Result - Labs Labs: Short CBC 06/03/18 Range/Units 19:20 WBC 5.8 (4.8-10.8) K/mm3 Hgb 15.1 (14.1-18.0) g/dL Hct 42.9 (42.0-52.0) % Plt Count 217 (142-424) K/mm3 BMP 06/03/18 19:20 Sodium 135 L Potassium 3.7 Chloride 102 Carbon Dioxide 25 BUN 15 Creatinine 0.90 Glucose 122 H Calcium 9.3 Cardiac Enzymes 06/03/18 Range/Units 19:20 Troponin I < 0.02 (0.00-0.06) ng/ml Liver Function 06/03/18 Range/Units 19:20 Total Bilirubin 0.4 (0.2-1.0) mg/dL AST 16 (15-37) U/L ALT 19 (12-78) U/L Alkaline Phosphatase 115 (46-116) U/L Albumin 3.5 (3.4-5.0) gm/dL Urine 06/03/18 Range/Units 19:35 Urine Color Yellow (Yellow) Urine Appearance Clear (Clear) Urine pH 7.0 (5.0-8.5) Ur Specific [place] 1.020 (1.005-1.030) Urine Protein Negative (Negative) Urine Glucose (UA) Negative (Negative) Assessment and Plan - Assessment and plan all Dx Assessment and Plan for all problems:: Discussed patient with Dr. Umana, he will see patient later today, all orders per Dr. Umana
--- NOTE | 2018-06-04 11:27 | Pharmacy Consult Notes ---
[facility] Pharmacy VTE Monitoring - Patient Demographics Admission date: 06/04/18 Report Date: 06/04/18 Time: 11:27 Allergies/Adverse Reactions: Patient Allergies tramadol [TRAMADOL] Allergy (Unknown, Verified 05/19/18 13:02) HIVES/ITCHING Height: 1.78 m Weight: 62.624 kg Patient Problems: Current Active Problems Lung cancer (Acute) Pneumonia (Acute) COPD exacerbation (Acute) - VTE Risk Labs: VTE Related Lab Results Hgb 15.1 g/dL (14.1-18.0) 06/03/18 19:20 Hct 42.9 % (42.0-52.0) 06/03/18 19:20 Plt Count 217 K/mm3 (142-424) 06/03/18 19:20 BUN 15 mg/dL (7-18) 06/03/18 19:20 Creatinine 0.90 mg/dL (0.70-1.30) 06/03/18 19:20 Estimated Creat Clear 51 mL/min (0-300) 06/03/18 19:20 Was VTE Risk Assessment Performed: Yes VTE Risk Level: Low Risk - Prophylaxis Types of VTE Prophylaxis: TEDS Thigh High, TEDS Knee High (STEPHANE HOSE ORDERED) Location of Applied Device: Bilateral Lower Extremeties
[2018-06-05 06:39] LABS: Eosinophils % 0.3 % (0.1-12.0); Hematocrit 43.6 % (42.0-52.0); Hemoglobin 13.2 g/dL (14.1-18.0); Lymphocytes # 0.7 K/mm3 (0.7-4.5); Lymphocytes % 5.7 K/mm3 (10-50); Mean Corpuscular HGB Conc 30.4 g/dL (31.8-35.4); Mean Corpuscular Hemoglobin 27.2 pg (27.0-31.2); Mean Corpuscular Volume 89.4 fl (80-94); Mean Platelet Volume 7.5 fl (7.4-10.4); Monocytes # 0.4 K/mm3 (0.1-1.0); Monocytes % 3.5 % (1.7-9.3); Neutrophils # 10.2 K/mm3 (1.8-7.8); Neutrophils % 90.4 % (37.0-80.0); Platelet Count 233 K/mm3 (142-424); Red Blood Count 4.88 M/mm3 (4.60-6.20); Red Cell Distribution Width 15.3 % (11.5-17.5); White Blood Count 11.3 K/mm3 (4.8-10.8)
[2018-06-05 06:52] LABS: Albumin/Globulin Ratio 0.8 (1.1-1.8); Bilirubin,Total 0.2 mg/dL (0.2-1.0); Globulin 3.9 gm/dl (1.3-3.2); Total Protein,Serum 6.9 gm/dL (6.4-8.2)
[2018-06-05 07:03] LABS: Lymphocytes % 7 % (10-50); Neutrophils % 86 % (42-76); Rouleaux 1+; Total Cells Counted 100
--- NOTE | 2018-06-05 09:48 | Progress Note ---
Internal Medicine - PN: Subj *Date: 06/05/18 *Time: 15:39 Exam Vital signs and Labs for Last 24 Hours: Temp Pulse Resp BP Pulse Ox 98.1 F 88 18 103/57 100 06/05/18 08:00 06/05/18 08:00 06/05/18 08:00 06/05/18 08:00 06/05/18 08:00 Laboratory Results - last 24 hr 06/05/18 06:15: WBC 11.3 H D, RBC 4.88, Hgb 13.2 L, Hct 43.6, MCV 89.4, MCH 27.2 , MCHC 30.4 L, RDW 15.3, Plt Count 233, MPV 7.5, Neut % (Auto) 90.4 H, Lymph % ( Auto) 5.7 L, [place] % (Auto) 3.5, Eos % (Auto) 0.3, Baso % (Auto) 0.0 L, Neut # ( Auto) 10.2 H, Lymph # (Auto) 0.7, [place] # (Auto) 0.4, Eos # (Auto) 0.0, Baso # ( Auto) 0.0, Total Counted 100, Neutrophils % (Manual) 86 H, Band Neutrophils % 7.0, Lymphocytes % (Manual) 7 L, Platelet Estimate Normal, Rouleaux 1+ 06/05/18 06:15: Sodium 142, Potassium 4.0, Chloride 107, Carbon Dioxide 26, Anion Gap 13.0, BUN 16, Creatinine 0.92, Estimated Creat Clear 51, Estimated GFR 79, Est GFR ( Amer) 96, Glucose 157 H, Calcium 9.0, Total Bilirubin 0.2, AST 17, ALT 23, Alkaline Phosphatase 96, Total Protein 6.9, Albumin 3.0 L D , Globulin 3.9 H, Albumin/Globulin Ratio 0.8 L I & O for Last 24 hours: Intake & Output 06/02/18 06/03/18 06/04/18 06/05/18 11:59 11:59 11:59 11:59 Intake Total 1640 / 1640 550 / 550 Output Total 600 / 600 250 / 250 Balance 1040 / 1040 300 / 300 Weight 138 lb 1 oz - Constitutional no acute distress, thin, chronically ill appearing - *Routine HEENT Exam Head: Present: normocephalic Eye: Present: PERRL ENT: Present: mucous membranes moist - *Routine Neck Exam Present: full ROM - *Routine Respiratory Exam Present: rhonchi, wheezes, diminished air movement - *Routine Cardiovascular Exam Present: RRR - *Routine Abdominal Exam Present: soft, normoactive bowel sounds - *Routine Extremities Exam Present: full ROM - Routine Back/Spine/Pelvis Exam Back/Spine: Present: full ROM - *Routine Skin Exam Present: intact - *Routine Neurological Exam Present: alert, oriented X3 - Routine Psychiatric Exam Present: normal affect, normal thought process Assessment and Plan - Assessment and plan all Dx Assessment and Plan for all problems:: continue antibotics suzi will round later today, all orders per suzi
[2018-06-06 06:28] LABS: Eosinophils # 0.1 K/mm3 (0.0-0.4); Eosinophils % 0.5 % (0.1-12.0); Hemoglobin 13.3 g/dL (14.1-18.0); Lymphocytes # 0.6 K/mm3 (0.7-4.5); Lymphocytes % 4.9 K/mm3 (10-50); Mean Corpuscular HGB Conc 30.3 g/dL (31.8-35.4); Mean Corpuscular Hemoglobin 27.1 pg (27.0-31.2); Mean Corpuscular Volume 89.6 fl (80-94); Mean Platelet Volume 7.5 fl (7.4-10.4); Monocytes # 0.7 K/mm3 (0.1-1.0); Monocytes % 5.2 % (1.7-9.3); Neutrophils # 11.3 K/mm3 (1.8-7.8); Neutrophils % 89.4 % (37.0-80.0); Platelet Count 228 K/mm3 (142-424); Red Blood Count 4.91 M/mm3 (4.60-6.20); Red Cell Distribution Width 15.4 % (11.5-17.5); White Blood Count 12.6 K/mm3 (4.8-10.8)
[2018-06-06 06:40] LABS: Albumin Level 3.2 gm/dL (3.4-5.0); Albumin/Globulin Ratio 0.9 (1.1-1.8); Anion Gap 10.6 mEq/L (5-15); Bilirubin,Total 0.2 mg/dL (0.2-1.0); Calcium 8.9 mg/dL (8.5-10.1); Globulin 3.7 gm/dl (1.3-3.2); Potassium 3.6 mmoL/L (3.5-5.1); Total Protein,Serum 6.9 gm/dL (6.4-8.2)
[2018-06-06 07:47] LABS: Lymphocytes % 5 % (10-50); Monocytes % 5 % (2-9); Neutrophils % 90 % (42-76); Total Cells Counted 100
[2018-06-06 07:49] LABS: Rouleaux 1+
[2018-06-06 08:02] VITALS: BP 119/62
--- NOTE | 2018-06-06 08:53 | Discharge Summary ---
General - General Admission date:: 06/04/18 Discharge date: 06/06/18 HPI HPI: 83-year-old male presents to the ER with complaints of shortness of breath, feeling like he is smothering, feels he cant catch his breath. denies fever, calf pain, palpitations, syncope. Patient followed by Dr. Arvizu in [place] for lung cancer with renal and hepatic mets; undergoing chemotherapy; last dose one week ago; also treated on Levaquin for pneumonia within the past month. Patient admitted for pneumonia Hospital Course Hospital Course: pt did better in hospital and had no fever and sputum culture ok and blood cult neg - pt reports feeling better and is followed by oncology Objective Vital signs: Temp Pulse Resp BP Pulse Ox 98.4 F 103 H 20 119/62 94 L 06/06/18 07:59 06/06/18 07:59 06/06/18 07:59 06/06/18 07:59 06/06/18 07:59 no acute distress - *Routine HEENT Exam Head: Present: normocephalic Eye: Present: EOMI, PERRL ENT: Present: mucous membranes dry - *Routine Neck Exam Present: supple - *Routine Respiratory Exam Present: rhonchi - *Routine Cardiovascular Exam Present: RRR, murmur - *Routine Abdominal Exam Present: soft - *Routine Extremities Exam Present: full ROM - *Routine Skin Exam Present: intact - *Routine Neurological Exam Present: alert, oriented X3, CN II-XII intact - Routine Psychiatric Exam Present: normal affect Results Labs on day of discharge: Labs from last 24 hours 06/06/18 06/06/18 06:00 06:00 WBC 12.6 H RBC 4.91 Hgb 13.3 L Hct 44.0 MCV 89.6 MCH 27.1 MCHC 30.3 L RDW 15.4 Plt Count 228 MPV 7.5 Neut % (Auto) 89.4 H Lymph % (Auto) 4.9 L [place] % (Auto) 5.2 Eos % (Auto) 0.5 Baso % (Auto) 0.0 L Neut # (Auto) 11.3 H Lymph # (Auto) 0.6 L [place] # (Auto) 0.7 Eos # (Auto) 0.1 Baso # (Auto) 0.0 Total Counted 100 Neutrophils % (Manual) 90 H Lymphocytes % (Manual) 5 L Monocytes % (Manual) 5 Platelet Estimate Normal Rouleaux 1+ Sodium 142 Potassium 3.6 Chloride 107 Carbon Dioxide 28 Anion Gap 10.6 BUN 19 H Creatinine 0.89 Estimated Creat Clear 51 Estimated GFR 82 Est GFR ( Amer) 99 Glucose 147 H Calcium 8.9 Total Bilirubin 0.2 AST 48 H D ALT 96 H D Alkaline Phosphatase 92 Total Protein 6.9 Albumin 3.2 L Globulin 3.7 H Albumin/Globulin Ratio 0.9 L Preliminary micro results at discharge 06/03/18 19:20 Blood Culture - Preliminary Blood NO GROWTH AFTER 48 HOURS 06/03/18 19:20 Blood Culture - Preliminary Blood NO GROWTH AFTER 48 HOURS DS: Diagnosis - Discharge Diagnosis (1) Lung cancer Status: Acute (2) COPD exacerbation Status: Acute Discharge Plan - Patient Discharge Instructions ACTIVITY: Continue current activity DIET: continue same diet - Follow up Plan Disposition: Home, Self-[facility] Medications: Home Medications Medication Instructions Recorded Confirmed Type amlodipine 5 mg tablet 5 mg PO DAILY tab 01/18/18 06/03/18 History aspirin 325 mg tablet 325 mg PO DAILY tab 01/18/18 06/04/18 History atorvastatin 10 mg tablet 10 mg PO HS tab 01/18/18 06/04/18 History buspirone 15 mg tablet 15 mg PO BID 01/18/18 06/03/18 History glycopyrrolate 9 mcg-formoterol 2 puff INHALATION BID 01/18/18 06/03/18 History 4.8 mcg HFA aerosol inhaler metoprolol tartrate 50 mg tablet 50 mg PO BID 01/18/18 06/03/18 History omeprazole magnesium 20 mg 20 mg PO DAILY tab 01/18/18 06/03/18 History tablet,delayed release Famotidine [Acid Critical Power Technician] 20 mg PO BID 03/29/18 06/03/18 History dilTIAZem HCl [Diltiazem 240mg 240 mg PO DAILY 03/29/18 06/03/18 History 24Hr ER Cap] Ipratropium/Albuterol Sulfate 3 ml IH Q4HP PRN 03/30/18 06/04/18 History [Duoneb 3mL neb] Ipratropium/Albuterol Sulfate 3 ml IH TID 06/03/18 06/03/18 History [Duoneb 3mL neb] Nicotine [Nicoderm Cq 14mg] 1 patch TRANSDERMA DAILY 06/03/18 06/03/18 History Tamsulosin HCl [Flomax 0.4mg 0.4 mg PO HS 06/03/18 06/03/18 History capsule] Prescriptions/Medication Reconciliation: Continue omeprazole magnesium 20 mg tablet,delayed release 20 mg PO DAILY tab amlodipine 5 mg tablet 5 mg PO DAILY tab atorvastatin 10 mg tablet 10 mg PO HS tab metoprolol tartrate 50 mg tablet 50 mg PO BID buspirone 15 mg tablet 15 mg PO BID glycopyrrolate 9 mcg-formoterol 4.8 mcg HFA aerosol inhaler 2 puff INHALATION BID gabapentin 400 mg capsule 400 mg PO TID 30 Days #90 cap lorazepam 0.5 mg tablet 0.5 mg PO HS #30 tab hydrocodone 5 mg-acetaminophen 325 mg tablet 1 tab PO BID PRN 30 Days #60 tab PRN Reason: pain aspirin 325 mg tablet 325 mg PO DAILY tab Famotidine [Acid Critical Power Technician] 20 mg PO BID dilTIAZem HCl [Diltiazem 240mg 24Hr ER Cap] 240 mg PO DAILY Nicotine [Nicoderm Cq 14mg] 1 patch TRANSDERMA DAILY Ipratropium/Albuterol Sulfate [Duoneb 3mL neb] 3 ml IH TID Ipratropium/Albuterol Sulfate [Duoneb 3mL neb] 3 ml IH Q4HP PRN PRN Reason: Shortness Of Breath Tamsulosin HCl [Flomax 0.4mg capsule] 0.4 mg PO HS
== END 2018-06-06 10:09 | disposition home or self-care (01) ==
LOC: ER 19:04 → 2ND 19:04
PROVIDERS: ADMIT Family Medicine; ATTEND Emergency Medicine
CPT/HCPCS: 36415; 71010; 71045; 71275; 80053; 81001; 83605; 84484; 85007; 85025; 85378; 87040; 87070; 87205; 93005; 94640; 94761; 96365; 96367; 96375; 99285; G0378; J0456; J2405; Q9967

== ENCOUNTER → 2018-07-06 15:12 | Outpatient (REF) | payer MEDICARE, MEDICAID, SELFPAY ==
[2018-07-06 18:21] LABS: Eosinophils % 0.3 % (0.1-12.0); Hematocrit 48.6 % (42.0-52.0); Hemoglobin 15.7 g/dL (14.1-18.0); Lymphocytes # 0.5 K/mm3 (0.7-4.5); Mean Corpuscular HGB Conc 32.3 g/dL (31.8-35.4); Mean Corpuscular Volume 89.8 fl (80-94); Mean Platelet Volume 7.7 fl (7.4-10.4); Monocytes % 9.7 % (1.7-9.3); Neutrophils # 8.3 K/mm3 (1.8-7.8); Platelet Count 261 K/mm3 (142-424); Red Blood Count 5.41 M/mm3 (4.60-6.20); Red Cell Distribution Width 15.7 % (11.5-17.5); White Blood Count 9.8 K/mm3 (4.8-10.8)
[2018-07-06 18:26] LABS: Alanine Aminotransferase 42 U/L (12-78); Albumin Level 3.9 gm/dL (3.4-5.0); Albumin/Globulin Ratio 1.1 (1.1-1.8); Alkaline Phosphatase 85 U/L (46-116); Anion Gap 14.1 mEq/L (5-15); Bilirubin,Total 0.3 mg/dL (0.2-1.0); Blood Urea Nitrogen 24 mg/dL (7-18); Calcium 9.4 mg/dL (8.5-10.1); Carbon Dioxide 23 mmol/L (21.0-32.0); Chloride 100 mmol/L (98-107); Creatinine,Serum 0.96 mg/dL (0.70-1.30); Estimated Glomerular Filt Rate 75 ml/min (>60); GFR (African American) 91 ML/MIN (>60); Globulin 3.4 gm/dl (1.3-3.2); Glucose 119 mg/dL (74-106); Sodium 132 mmol/L (136-145); Total Protein,Serum 7.3 gm/dL (6.4-8.2)
[2018-07-06 18:34] LABS: Aspartate Amino Transferase 19 U/L (15-37); Potassium 5.1 mmoL/L (3.5-5.1)
[2018-07-06 18:38] LABS: MANUAL DIFFERENTIAL MANUAL DIFFERENTIAL (MANUAL DIFF)
[2018-07-06 21:56] LABS: Lymphocytes % 8 % (10-50); Monocytes % 9 % (2-9); Neutrophils % 83 % (42-76); Platelet Estimate Normal; Total Cells Counted 100
[2018-07-06 21:57] LABS: Acanthocytes 1+; Anisocytosis 1+; Ovalocytes 1+
== END ==
LOC: LAB 15:12
PROVIDERS: Visit Provider Nurse Practitioner Family
DX: R53.1 Weakness (principal)
CPT/HCPCS: 80053; 85007; 85025

== ENCOUNTER → 2018-07-11 13:41 | Outpatient (CLI) | payer MEDICARE, MEDICAID, SELFPAY ==
[2018-07-11 18:15] LABS: Anion Gap 19.9 mEq/L (5-15); Blood Urea Nitrogen 33 mg/dL (7-18); Calcium 9.1 mg/dL (8.5-10.1); Carbon Dioxide 21 mmol/L (21.0-32.0); Chloride 98 mmol/L (98-107); Estimated Glomerular Filt Rate 49 ml/min (>60); GFR (African American) 59 ML/MIN (>60); Glucose 135 mg/dL (74-106); Potassium 4.9 mmoL/L (3.5-5.1); Sodium 134 mmol/L (136-145)
== END ==
PROVIDERS: Visit Provider Nurse Practitioner Family
DX: I10 Essential (primary) hypertension (principal)
CPT/HCPCS: 80048

== ENCOUNTER 2018-08-17 12:25 | Inpatient (IN) ==
--- NOTE | 2018-08-17 12:51 | Emergency Department Note ---
[facility] [place] Clinical Impression: Nausea, Dizziness Lung cancer Qualifiers: Laterality: unspecified laterality Lung location: unspecified part of lung Qualified Code(s): C34.90 - Malignant neoplasm of unspecified part of unspecified bronchus or lung Disposition: Still a Patient Condition on Discharge: Fair Time of Disposition: 13:10 (ER bed 7) Medical Decision Making - Gabo Inquiry Pt receiving controlled substance: No Vital Signs: 08/17/18 12:36 Temperature 97.6 F Temperature Source Temporal Artery Scan Pulse Rate [Left Radial] 104 H Respiratory Rate 20 Blood Pressure [Left Arm] 102/65 Blood Pressure Mean [Left Arm] 77 Blood Pressure Source [Left Arm] Automatic Cuff Blood Pressure Position [Left Arm] Sitting 02 Sat by Pulse Oximetry 94 L Oxygen Delivery Method Nasal Cannula Oxygen Flow Rate (LPM) 2 - Physician Consults Physician Consulted: Annette Lorenz NP Time: 12:55 Reason -: Pt condition Comment/Response: @1255 called to discuss HPI, PMHx, POC w/ PCP, Annette Lorenz. Not available. Will return call. 1300: Annette called back. Discussed HPI and PMHx. Concerns for mets to brain. Would prefer pt be transferred to ER for CT head and further workup as pt has declined significantly over the last 6 months. - Reevaluation(s) Time: 12:50 Reevaluation #1: Close friend stepped out of room to talk away from pt. Reporting "cancer doctor in [place]" told him there was nothing further that could be done for him. She is wanting pt admitted for observation due to dizziness if possible. Aware once orthostatic VS obtained, I plan to call PCP and discuss HPI, PMHx, POC w/ her but that I would gladly express her concerns. 1309: Discussed consult w/ PCP w/ pt and friend. They are aware of her concerns and POC. They agrees to transfer to ER. Pt asks for a w/c. Report given in ER to Dr. Esquivel and HERMELINDA Strauss. Bed 7 available. Pt pushed to ER in w/c, friend remains at side. [facility] [place] - General Stated complaint: dizzy, naseua Time Seen by Provider: 08/17/18 12:37 Mode of Arrival: Ambulatory Source of Information: Patient Limitations: Physical Limitations Description of Symptoms (Recalled from Triage Doc. by RN): Patient states that he has been nauseous for 5 days, he has been taking Zofran and it has not helped. No vomitting or diarrhea HEENT Symptoms (Recalled from RN notes): No Resp Symptoms (Recalled from RN notes): Yes (Lung cancer, laborored breathing, O2) Skin Symptoms (Recalled from RN notes): No MS Symptoms (Recalled from RN notes): No Functional Status (Recalled from RN notes): na - History of Present Illness Provider Complaint: Here w/ family friend c/o dizziness and nausea. Initially reported x 5 days then x 3-4. Poor historian who is unsure of medications or hx. Reports a hx of lung ca. Was getting tx in [place] but reporting that due to his liver, he needs to see a provider here in [place] for it. Has zofran that oncologist prescribed when he told them about the symptoms. He says that is not helping. Denies hx of nausea or dizziness previously w/ treatment. Denies other symptoms. Dizziness worse in the evenings and typically occurs with position changes or head movement. No vomiting, CP, SOA (more then typical), diarrhea. - Related Data Home Medications Medication Instructions Recorded Confirmed glycopyrrolate 9 mcg-formoterol 2 puff INHALATION BID 01/18/18 08/17/18 4.8 mcg HFA aerosol inhaler Famotidine [Acid Cattle Dealer] 20 mg PO BID 03/29/18 08/17/18 dilTIAZem HCl [Diltiazem 240mg 240 mg PO DAILY 03/29/18 08/17/18 24Hr ER Cap] Tamsulosin HCl [Flomax 0.4mg 0.4 mg PO HS 06/03/18 08/17/18 capsule] Doxycycline Hyclate [Doxycycline 100 mg PO BID 07/18/18 08/17/18 100mg Tablet] Roflumilast [Daliresp] 500 mcg PO DAILY 07/18/18 08/17/18 predniSONE [Prednisone 20mg 40 mg PO DAILY 07/18/18 08/17/18 Tab] Albuterol Sulfate [Albuterol 2.5 mg IH QID 08/17/18 08/17/18 0.083% 2.5mg/3mL neb] Ipratropium/Albuterol Sulfate 1 puff IH BID 08/17/18 08/17/18 [Combivent Respimat Inh] methylPREDNISolone [Medrol] 4 mg PO DIRECTED 08/17/18 08/17/18 raNITIdine HCl [Zantac] 150 mg PO BID 08/17/18 08/17/18 Previous Rx's Medication Instructions Recorded gabapentin 400 mg capsule 400 mg PO TID 30 Days #90 cap 06/13/18 lorazepam 0.5 mg tablet 0.5 mg PO HS #30 tab 06/13/18 ipratropium-albuterol 0.5 mg-3 3 ml INHALATION TID #90 ml 06/16/18 mg(2.5 mg base)/3 mL nebulization soln amlodipine 5 mg tablet 5 mg PO DAILY #90 tab 07/07/18 aspirin 325 mg tablet 325 mg PO DAILY #90 tab 07/07/18 atorvastatin 10 mg tablet 10 mg PO HS #90 tab 07/07/18 buspirone 15 mg tablet 15 mg PO BID #60 tab 07/07/18 omeprazole magnesium 20 mg 20 mg PO DAILY #30 tab 07/07/18 tablet,delayed release metoprolol tartrate 50 mg tablet 50 mg PO BID #60 tab 08/04/18 ondansetron HCl 8 mg tablet 8 mg PO NEEDED PRN #20 tab 08/08/18 Allergies Allergy/AdvReac Type Severity Reaction Status Date / Time tramadol [TRAMADOL] Allergy Unknown HIVES/ITCHI Verified 08/17/18 12:46 NG - Worker's Comp Is this a Worker's Comp case?: No [facility] History I have reviewed the patient's past medical history: Yes Medical History: Reports:: Anxiety, Cancer, Chronic Obstructive Pulmonary Disease (COPD), Gastroesophageal Reflux Disease(GERD), Hyperlipidemia Denies:: Diabetes Mellitus Type 1, Diabetes Mellitus Type 2, MRSA Comment: ENLARGED PROSTATE, KNEE PAIN AND SWELLING,NEUROPATHY, DIZZY SPELLS Other Surgeries: Yes: Cancer Surgery, Colonoscopy, Other Amputation: No 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 - Social History Smoking Status: Current every day smoker Tobacco Type: cigarettes # Packs/Day (cigarettes): 1 Alcohol Intake: never Alcohol Intake Frequency:: other Substance Use Type: denies use Occupational Status: retired Housing: apartment Household Members: none - Psychiatric History Expresses thoughts of harming self/others: None Suicide Plan Description: No Plan Pschychiatric History:: Reports:: Anxiety Family Hx:: Non-contributory ROS Obtained: Yes Systems reviewed as appropriate & no additional complaints - Constitutional Constitutional: Reports as per HPI, Reports fatigue (unchanged), Denies fever(s), Reports poor appetite (unchanged), Reports weakness (pt denies, friend reports progressive x months) - Eyes Eyes: Denies change in vision, Denies eye pain - ENT Ears, Nose, Mouth, and Throat: Denies abnormal hearing, Denies ear discharge, Denies otalgia, Denies nasal congestion, Denies nasal discharge, Denies post nasal drip, Denies sore throat - Cardiovascular Cardiovascular: Denies chest pain, Denies irregular heart rhythm, Denies leg edema - Respiratory Respiratory: No change in phlegm color, Yes cough (baseline), Yes dyspnea (baseline, wearing portable oxygen), No coughing up blood, No pain on inspiration, No pain with cough - Gastrointestinal Gastrointestingal: Denies: abdominal pain, bloating, change in bowel habits, change in stool character, vomiting - Genitourinary Male Genitourinary: Denies difficulty urinating, Denies urinary frequency, Denies other (dysuria) - Musculoskeletal Musculoskeletal: Denies back pain - Integumentary/Breasts Skin/Breast: Denies change in skin color, Denies rash - Neurologic Neurologic: Denies behavioral changes, Denies confusion, Denies headache(s) Physical Exam - General General appearance: alert, other (thin, wearing oxygen, weak appearing) - Eye Eye exam: Present: normal appearance - ENT ENT exam: Present: normal oropharynx, TM's normal bilaterally, normal external ear exam - Chest Chest inspection: Present: symmetric chest wall rise - Respiratory Respiratory exam: Present: other (scattered rhonchi, improved w/ cough, nonprod cough occasionally, wearing portable oxygen 2LNC). Absent: respiratory distress, accessory muscle use - Cardiovascular Cardiovascular exam: Present: normal rhythm, tachycardia - Abdominal Exam Abdominal exam: Present: soft, hyperactive bowel sounds. Absent: distention, tenderness - Back Exam Comment: ambulating with cane on admission - Neurological Exam Neurological exam: Present: alert, oriented X3 - Psychiatric Psychiatric exam: Present: normal affect - Skin Skin exam: Present: warm, dry, intact
--- NOTE | 2018-08-17 13:30 | Emergency Department Note ---
ED Disposition Clinical Impression: Nausea, Dizziness Lung cancer Qualifiers: Laterality: unspecified laterality Lung location: unspecified part of lung Qu alified Code(s): C34.90 - Malignant neoplasm of unspecified part of unspecified bronchus or lung LLL pneumonia Qualifiers: Pneumonia type: due to unspecified organism Qualified Code(s): J18.1 - Lobar pneumonia, unspecified organism Disposition: Admitted as Observation Condition on Discharge: Fair Referrals: Annette Lorenz APRN [Primary Care Provider] - Jeff Umana MD [Staff Physician] - Time of Disposition: 15:56 - Critical Care Critical Care Time: No Attestation: On 08/17/18, the high probability of a clinically significant, sudden or life threatening deterioration of the following system(s) required my full and direct attention, intervention and personal management. The time I documented below is in addition to time spent performing reported procedures but includes the following listed in this critical care notation. Medical Decision Making - Medical Records Medical records reviewed: Yes: I reviewed the patient's medical records. - Gabo Inquiry Pt receiving controlled substance: No Gabo was queried for this patient: No Vital Signs: 08/17/18 12:36 08/17/18 12:52 08/17/18 12:54 Temperature 97.6 F Temperature Source Temporal Artery Scan Pulse Rate [Left Radial] 104 H Pulse Rate [Orthostatic Lying Right Radial] 96 H Pulse Rate [Orthostatic Sitting Right Radial] 101 H Pulse Rate [Right Radial] 104 H Respiratory Rate 20 Blood Pressure [Left Arm] 102/65 Blood Pressure [Orthostatic Lying Right Arm] 117/74 Blood Pressure [Orthostatic Sitting Right Arm] 110/65 Blood Pressure [Orthostatic Standing Right Arm] 104/66 Blood Pressure Mean [Left Arm] 77 Blood Pressure Source [Left Arm] Automatic Cuff Blood Pressure Position [Left Arm] Sitting 02 Sat by Pulse Oximetry 94 L Oxygen Delivery Method Nasal Cannula Oxygen Flow Rate (LPM) 2 08/17/18 13:16 08/17/18 13:25 08/17/18 13:30 Temperature 97.5 F L Temperature Source Oral Pulse Rate [Left Radial] 100 H 94 H 94 H Pulse Rate [Orthostatic Lying Right Radial] Pulse Rate [Orthostatic Sitting Right Radial] Pulse Rate [Right Radial] Respiratory Rate 16 16 16 Blood Pressure [Left Arm] 114/64 121/67 125/66 Blood Pressure [Orthostatic Lying Right Arm] Blood Pressure [Orthostatic Sitting Right Arm] Blood Pressure [Orthostatic Standing Right Arm] Blood Pressure Mean [Left Arm] 80 85 85 Blood Pressure Source [Left Arm] Automatic Cuff Automatic Cuff Automatic Cuff Blood Pressure Position [Left Arm] Sitting Sitting Sitting 02 Sat by Pulse Oximetry 95 95 95 Oxygen Delivery Method Nasal Cannula Nasal Cannula Nasal Cannula Oxygen Flow Rate (LPM) 2 2 2 08/17/18 14:00 08/17/18 14:30 Temperature Temperature Source Pulse Rate [Left Radial] 96 H 96 H Pulse Rate [Orthostatic Lying Right Radial] Pulse Rate [Orthostatic Sitting Right Radial] Pulse Rate [Right Radial] Respiratory Rate 18 18 Blood Pressure [Left Arm] 101/58 104/49 Blood Pressure [Orthostatic Lying Right Arm] Blood Pressure [Orthostatic Sitting Right Arm] Blood Pressure [Orthostatic Standing Right Arm] Blood Pressure Mean [Left Arm] 72 67 Blood Pressure Source [Left Arm] Automatic Cuff Automatic Cuff Blood Pressure Position [Left Arm] Supine Supine 02 Sat by Pulse Oximetry 98 98 Oxygen Delivery Method Nasal Cannula Nasal Cannula Oxygen Flow Rate (LPM) 2 2 - Lab Data Lab results reviewed: Yes: I reviewed the patient's lab results. Lab Results 08/17/18 13:30: WBC 6.3, RBC 4.89, Hgb 14.1, Hct 43.7, MCV 89.3, MCH 28.9, MCHC 32.3, RDW 16.1, Plt Count 299, MPV 7.3 L, Neut % (Auto) 81.6 H, Lymph % (Auto) 11.6, [place] % (Auto) 6.4, Eos % (Auto) 0.2, Baso % (Auto) 0.0 L, Neut # (Auto) 5.2, Lymph # (Auto) 0.7, [place] # (Auto) 0.4, Eos # (Auto) 0.0, Baso # (Auto) 0.0 08/17/18 13:30: Sodium 144, Potassium 2.9 L*, Chloride 107, Carbon Dioxide 28, Anion Gap 11.9, BUN 13, Creatinine 0.81, Estimated Creat Clear 48, Estimated GFR 91, Est GFR ( Amer) 111, Glucose 170 H, Calcium 8.9, Total Bilirubin 0.3, AST 19, ALT 37, Alkaline Phosphatase 106, Total Protein 6.6, Albumin 2.9 L, Globulin 3.7 H, Albumin/Globulin Ratio 0.8 L 08/17/18 13:30: Lactate 1.1 Result diagrams: 08/17/18 13:30 08/17/18 13:30 Orders (Tests/Meds): ED MEDICATIONS Generic Name Dose Route Start Last Admin Trade Name Freq PRN Reason Stop Dose Admin Potassium Chloride/Water 100 mls @ 100 mls/hr 08/17/18 14:59 Potassium Chloride 10meq/100ml Ivpb IV 08/17/18 15:58 ONCE ONE Discontinued Medications Generic Name Dose Route Start Last Admin Trade Name Freq PRN Reason Stop Dose Admin Iopamidol 50 ml 08/17/18 15:05 08/17/18 15:05 [id number]; 50ml Vial IV 08/17/18 15:06 50 ml ONCE ONE Administration Protocol Iopamidol 50 ml 08/17/18 15:05 08/17/18 15:06 [id number]; 50ml Vial IV 08/17/18 15:06 50 ml ONCE ONE Administration Protocol Ondansetron HCl 4 mg 08/17/18 14:39 08/17/18 14:43 Zofran 4mg/2ml Vial IV 08/17/18 14:40 4 mg ONCE ONE Administration Potassium Chloride 40 meq 08/17/18 14:59 Klor-Con 20meq Tablet PO 08/17/18 15:00 ONCE ONE Sodium Chloride 10 ml 08/17/18 15:05 08/17/18 15:05 Rad-Saline Flush 10ml Syringe IV 08/17/18 15:06 10 ml ONCE ONE Administration ORDERS Category Date Time Status Blood Culture Stat Micro 08/17/18 15:55 Ordered - Radiology Data #1 Image(s): Chest Image Reviewed: Yes I reviewed the patient's radiology results, Yes I reviewed the patient's radiology image, Yes I have reviewed radiologist's interpretation Left upper lobe and left lower lobe pneumonia - CT Data CT Scan: Head Time Received: 15:[address] Reviewed: Yes: I have reviewed the patient's CT results Preliminary Findings: Normal/NAD Dizzy HPI - General Chief Complaint: Dizziness Stated Complaint: dizzy, naseua Time Seen by Provider: 08/17/18 12:37 Mode of Arrival: Ambulatory Source of Information: Patient Limitations: Physical Limitations Description of Symptoms (Recalled from ER Triage Doc. by RN): Patient states that he has been nauseous for 5 days, he has been taking Zofran and it has not helped. No vomitting or diarrhea - History of Present Illness HPI Narrative: Patient is an 83-year-old black gentleman who comes to the emergency room with nausea for the past 5 days no vomiting or diarrhea but he has had some dizziness. He has not had any blackout spells or falls. He does have a history of lung cancer and has been getting therapy for that but recently was told that he had some cancer in the liver as well and is no longer receiving therapy MD complaint: dizziness, lightheadedness Onset (ago): day(s) Time: 13:31 Timing: gradual onset - Related Data Home Medications Medication Instructions Recorded Confirmed glycopyrrolate 9 mcg-formoterol 2 puff INHALATION BID 01/18/18 08/17/18 4.8 mcg HFA aerosol inhaler Famotidine [Acid Television Repairman] 20 mg PO BID 03/29/18 08/17/18 dilTIAZem HCl [Diltiazem 240mg 240 mg PO DAILY 03/29/18 08/17/18 24Hr ER Cap] Tamsulosin HCl [Flomax 0.4mg 0.4 mg PO HS 06/03/18 08/17/18 capsule] Doxycycline Hyclate [Doxycycline 100 mg PO BID 07/18/18 08/17/18 100mg Tablet] Roflumilast [Daliresp] 500 mcg PO DAILY 07/18/18 08/17/18 predniSONE [Prednisone 20mg 40 mg PO DAILY 07/18/18 08/17/18 Tab] Albuterol Sulfate [Albuterol 2.5 mg IH QID 08/17/18 08/17/18 0.083% 2.5mg/3mL neb] Ipratropium/Albuterol Sulfate 1 puff IH BID 08/17/18 08/17/18 [Combivent Respimat Inh] methylPREDNISolone [Medrol] 4 mg PO DIRECTED 08/17/18 08/17/18 raNITIdine HCl [Zantac] 150 mg PO BID 09/19/18 09/19/18 Previous Rx's Medication Instructions Recorded gabapentin 400 mg capsule 400 mg PO TID 30 Days #90 cap 06/13/18 lorazepam 0.5 mg tablet 0.5 mg PO HS #30 tab 06/13/18 ipratropium-albuterol 0.5 mg-3 3 ml INHALATION TID #90 ml 06/16/18 mg(2.5 mg base)/3 mL nebulization soln amlodipine 5 mg tablet 5 mg PO DAILY #90 tab 07/07/18 aspirin 325 mg tablet 325 mg PO DAILY #90 tab 07/07/18 atorvastatin 10 mg tablet 10 mg PO HS #90 tab 07/07/18 buspirone 15 mg tablet 15 mg PO BID #60 tab 07/07/18 omeprazole magnesium 20 mg 20 mg PO DAILY #30 tab 07/07/18 tablet,delayed release metoprolol tartrate 50 mg tablet 50 mg PO BID #60 tab 08/04/18 ondansetron HCl 8 mg tablet 8 mg PO NEEDED PRN #20 tab 08/08/18 Allergies Allergy/AdvReac Type Severity Reaction Status Date / Time tramadol [TRAMADOL] Allergy Unknown HIVES/ITCHI Verified 08/17/18 12:46 NG [facility] History I have reviewed the patient's past medical history: Yes Medical History: Reports:: Anxiety, Cancer, Chronic Obstructive Pulmonary Disease (COPD), Gastroesophageal Reflux Disease(GERD), Hyperlipidemia Denies:: Diabetes Mellitus Type 1, Diabetes Mellitus Type 2, MRSA Comment: ENLARGED PROSTATE, KNEE PAIN AND SWELLING,NEUROPATHY, DIZZY SPELLS Other Surgeries: Yes: Cancer Surgery, Colonoscopy, Other Amputation: No 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 - Social History Smoking Status: Current every day smoker Tobacco Type: cigarettes # Packs/Day (cigarettes): 1 Alcohol Intake: never Alcohol Intake Frequency:: other Substance Use Type: denies use Occupational Status: retired Housing: apartment Household Members: none - Psychiatric History Expresses thoughts of harming self/others: None Suicide Plan Description: No Plan Pschychiatric History:: Reports:: Anxiety Family Hx:: Non-contributory ROS Obtained: Yes All systems reviewed & no additional complaints - Constitutional Constitutional: Reports system reviewed and no additional complaints, except as docu, Reports as per HPI - Eyes Eyes: Reports system reviewed and no additional complaints, except as docu, Reports as per HPI - Respiratory Respiratory: Yes system reviewed and no additional complaints, except as docu, Yes as per HPI - Neurologic Neurologic: Reports system reviewed and no additional complaints, except as docu, Reports as per HPI Physical Exam - General General appearance: alert, other (thin, wearing oxygen, weak appearing) - Head Head exam: atraumatic - Chest Chest inspection: Present: normal inspection - Respiratory Respiratory exam: Present: normal lung sounds bilaterally - Cardiovascular Cardiovascular exam: Present: regular rate - Neurological Exam Neurological exam: Present: alert, oriented X3
[2018-08-17 14:07] LABS: Albumin Level 2.9 gm/dL (3.4-5.0); Albumin/Globulin Ratio 0.8 (1.1-1.8); Anion Gap 11.9 mEq/L (5-15); Bilirubin,Total 0.3 mg/dL (0.2-1.0); Calcium 8.9 mg/dL (8.5-10.1); Eosinophils % 0.2 % (0.1-12.0); Globulin 3.7 gm/dl (1.3-3.2); Hematocrit 43.7 % (42.0-52.0); Hemoglobin 14.1 g/dL (14.1-18.0); Lymphocytes # 0.7 K/mm3 (0.7-4.5); Lymphocytes % 11.6 K/mm3 (10-50); Mean Corpuscular HGB Conc 32.3 g/dL (31.8-35.4); Mean Corpuscular Hemoglobin 28.9 pg (27.0-31.2); Mean Corpuscular Volume 89.3 fl (80-94); Mean Platelet Volume 7.3 fl (7.4-10.4); Monocytes # 0.4 K/mm3 (0.1-1.0); Monocytes % 6.4 % (1.7-9.3); Neutrophils # 5.2 K/mm3 (1.8-7.8); Neutrophils % 81.6 % (37.0-80.0); Platelet Count 299 K/mm3 (142-424); Red Blood Count 4.89 M/mm3 (4.60-6.20); Red Cell Distribution Width 16.1 % (11.5-17.5); Total Protein,Serum 6.6 gm/dL (6.4-8.2); White Blood Count 6.3 K/mm3 (4.8-10.8)
[2018-08-17 14:20] LABS: Potassium 2.9 mmoL/L (3.5-5.1)
[2018-08-18 07:13] LABS: Basophils % 0.2 % (0.1-2.0); Eosinophils % 0.6 % (0.1-12.0); Lymphocytes # 1.1 K/mm3 (0.7-4.5); Mean Corpuscular HGB Conc 31.8 g/dL (31.8-35.4); Mean Corpuscular Hemoglobin 28.3 pg (27.0-31.2); Mean Platelet Volume 7.3 fl (7.4-10.4); Monocytes # 0.7 K/mm3 (0.1-1.0); Monocytes % 10.7 % (1.7-9.3); Neutrophils # 4.7 K/mm3 (1.8-7.8); Neutrophils % 71.5 % (37.0-80.0); Platelet Count 224 K/mm3 (142-424); Red Blood Count 4.27 M/mm3 (4.60-6.20); White Blood Count 6.6 K/mm3 (4.8-10.8)
[2018-08-18 07:15] LABS: Albumin Level 2.3 gm/dL (3.4-5.0); Albumin/Globulin Ratio 0.7 (1.1-1.8); Bilirubin,Total 0.3 mg/dL (0.2-1.0); Calcium 8.1 mg/dL (8.5-10.1); Globulin 3.2 gm/dl (1.3-3.2); Total Protein,Serum 5.5 gm/dL (6.4-8.2)
[2018-08-18 07:18] LABS: Hemoglobin 12.2 g/dL (14.1-18.0)
[2018-08-18 07:20] LABS: Phosphorous 1.9 mg/dL (2.4-4.9)
--- NOTE | 2018-08-18 07:35 | Pharmacy Consult Notes ---
[facility] Pharmacy VTE Monitoring - Patient Demographics Admission date: 08/17/18 Report Date: 08/18/18 Time: 07:35 Allergies/Adverse Reactions: Patient Allergies tramadol [TRAMADOL] Allergy (Unknown, Verified 08/17/18 12:46) HIVES/ITCHING Height: 1.78 m Weight: 56.047 kg Patient Problems: Current Active Problems Lung cancer (Acute) Nausea (Acute) Dizziness (Acute) LLL pneumonia (Acute) - VTE Risk Labs: VTE Related Lab Results Hgb 12.2 g/dL (14.1-18.0) L D 08/18/18 06:35 Hct 38.0 % (42.0-52.0) L 08/18/18 06:35 Plt Count 224 K/mm3 (142-424) D 08/18/18 06:35 BUN 7 mg/dL (7-18) D 08/18/18 06:35 Creatinine 0.53 mg/dL (0.70-1.30) L D 08/18/18 06:35 Estimated Creat Clear 46 mL/min (0-300) 08/18/18 06:35 Was VTE Risk Assessment Performed: Yes VTE Risk Level: Very Low Risk - Prophylaxis VTE Prophylaxis Ordered?: Yes Types of VTE Prophylaxis: TEDS Knee High Location of Applied Device: Bilateral Lower Extremeties - VTE Diagnosis Confirmed Treatment or plan recommended: Continue Current Treatment
--- NOTE | 2018-08-18 09:21 | History & Physical Report ---
*Admission Date: 08/17/18 *Chief complaint: dizzy,sob *History of present illness: 83-year-old male presents the emergency room with nausea for the past 5 days no vomiting or diarrhea but he has had some dizziness. Patient denies chest pain but is complaining of shortness of breath this morning. Patient reports history of lung cancer and is recently been undergoing treatment plans were stopped by his oncology due to enlarging of the mass and metastases to the liver. Patient states he was told by his oncologist that there was nothing else they could do. Patient admitted for pneumonia. Will do CT of chest to rule out PE due to history of cancer and wells score a 5.5. Will workup cardiac due to shortness of breath. Consult placed for Dr. Khalil for consult lung cancer with metastases to liver. [facility] History I have reviewed the patient's past medical history: Yes Medical History: Reports:: Anxiety, Cancer, Chronic Obstructive Pulmonary Disease (COPD), Gastroesophageal Reflux Disease(GERD), Hyperlipidemia Denies:: Diabetes Mellitus Type 1, Diabetes Mellitus Type 2, MRSA Other Surgeries: Yes: Cancer Surgery, Colonoscopy, Other Amputation: No Fractures: No - *Social History Smoking Status: Current every day smoker Tobacco Type: cigarettes # Packs/Day (cigarettes): 1 Alcohol Intake: never Alcohol Intake Frequency:: other Substance Use Type: denies use Occupational Status: retired Housing: apartment Household Members: none - Psychiatric History Expresses thoughts of harming self/others: None Suicide Plan Description: No Plan Pschychiatric History:: Reports:: Anxiety *Family Hx:: Non-contributory Review of Systems - Constitutional Reports weakness, Denies headache(s) - Eyes Denies blurry vision - ENT Reports dizziness, Reports dizziness, Denies bleeding gums - *Cardiovascular Reports shortness of breath, Denies chest pain with activity - *Respiratory Reports shortness of breath, Reports shortness of breath with activity - *Gastrointestinal Reports nausea, Denies vomiting - *Genitourinary Denies urinary frequency - *Musculoskeletal Denies neck pain - Integumentary/Breasts Denies rash - *Neurologic Reports weakness (pt denies, friend reports progressive x months), Denies abnormal hearing, Denies behavioral changes, Denies confusion, Denies headache(s) - Psychiatric Denies anxiety - Endocrine Denies flushing - Hematologic/Lymphatic Denies enlarged lymph nodes - Allergic/Immunologic Reports wheezing, Denies lip swelling Meds Home Medications Medication Instructions Recorded Confirmed Type glycopyrrolate 9 mcg-formoterol 2 puff INHALATION BID 01/18/18 08/17/18 History 4.8 mcg HFA aerosol inhaler Famotidine [Acid Direct Care Staffer] 20 mg PO BID 03/29/18 08/17/18 History dilTIAZem HCl [Diltiazem 240mg 240 mg PO DAILY 03/29/18 08/17/18 History 24Hr ER Cap] Tamsulosin HCl [Flomax 0.4mg 0.4 mg PO HS 06/03/18 08/17/18 History capsule] Roflumilast [Daliresp] 500 mcg PO DAILY 07/18/18 08/17/18 History predniSONE [Prednisone 20mg 40 mg PO DAILY 07/18/18 08/17/18 History Tab] Albuterol Sulfate [Albuterol 2.5 mg IH QID 08/17/18 08/17/18 History 0.083% 2.5mg/3mL neb] Ipratropium/Albuterol Sulfate 1 puff IH BID 08/17/18 08/17/18 History [Combivent Respimat Inh] raNITIdine HCl [Zantac] 150 mg PO BID 08/17/18 08/17/18 History Allergies Allergy/AdvReac Type Severity Reaction Status Date / Time tramadol [TRAMADOL] Allergy Unknown HIVES/ITCHI Verified 08/17/18 12:46 NG Exam Vital signs and Labs for Last 24 Hours: Temp Pulse Resp BP Pulse Ox 98.4 F 104 H 20 109/48 96 08/18/18 07:52 08/18/18 07:52 08/18/18 07:52 08/18/18 07:52 08/18/18 07:52 Laboratory Results - last 24 hr 08/17/18 13:30: WBC 6.3, RBC 4.89, Hgb 14.1, Hct 43.7, MCV 89.3, MCH 28.9, MCHC 32.3, RDW 16.1, Plt Count 299, MPV 7.3 L, Neut % (Auto) 81.6 H, Lymph % (Auto) 11.6, [place] % (Auto) 6.4, Eos % (Auto) 0.2, Baso % (Auto) 0.0 L, Neut # (Auto) 5.2, Lymph # (Auto) 0.7, [place] # (Auto) 0.4, Eos # (Auto) 0.0, Baso # (Auto) 0.0 08/17/18 13:30: Sodium 144, Potassium 2.9 L*, Chloride 107, Carbon Dioxide 28, Anion Gap 11.9, BUN 13, Creatinine 0.81, Estimated Creat Clear 48, Estimated GFR 91, Est GFR ( Amer) 111, Glucose 170 H, Calcium 8.9, Total Bilirubin 0.3, AST 19, ALT 37, Alkaline Phosphatase 106, Total Protein 6.6, Albumin 2.9 L, Globulin 3.7 H, Albumin/Globulin Ratio 0.8 L 08/17/18 13:30: Lactate 1.1 08/18/18 06:35: WBC 6.6, RBC 4.27 L, Hgb 12.2 L D, Hct 38.0 L, MCV 89.0, MCH 28.3, MCHC 31.8, RDW 16.0, Plt Count 224 D, MPV 7.3 L, Neut % (Auto) 71.5, Lymph % (Auto) 17.0, [place] % (Auto) 10.7 H, Eos % (Auto) 0.6, Baso % (Auto) 0.2, Neut # (Auto) 4.7, Lymph # (Auto) 1.1, [place] # (Auto) 0.7, Eos # (Auto) 0.0, Baso # (Auto) 0.0 08/18/18 06:35: Sodium 143, Potassium 3.0 L, Chloride 108 H, Carbon Dioxide 31, Anion Gap 7.0, BUN 7 D, Creatinine 0.53 L D, Estimated Creat Clear 46, Estimated GFR 149, Est GFR ( Amer) 181 D, Glucose 146 H, Calcium 8.1 L, Phosphorus 1.9 L, Magnesium 1.8, Total Bilirubin 0.3, AST 15, ALT 30, Alkaline Phosphatase 87, Total Protein 5.5 L, Albumin 2.3 L D, Globulin 3.2, Albumin/Globulin Ratio 0.7 L I & O for Last 24 hours: Intake & Output 08/15/18 08/16/18 08/17/18 08/18/18 11:59 11:59 11:59 11:59 Intake Total 347 / 347 Output Total 300 / 300 Balance 47 / 47 Weight 123 lb 9 oz Microbiology Reports for the Last 24 Hours: Microbiology 08/17/18 17:25 Sputum - Expectorated Sputum Gram Stain - Final 08/17/18 17:25 Sputum - Expectorated Sputum Sputum Culture - Preliminary - Constitutional thin, chronically ill appearing - *Routine HEENT Exam Head: Present: normocephalic Eye: Present: PERRL ENT: Present: mucous membranes moist - *Routine Neck Exam Present: supple. Absent: lymphadenopathy - *Routine Respiratory Exam Present: wheezes, diminished air movement - *Routine Cardiovascular Exam Present: RRR - *Routine Abdominal Exam Present: soft, normoactive bowel sounds. Absent: tenderness - *Routine Extremities Exam Absent: cyanosis, clubbing, edema - *Routine Skin Exam Present: warm. Absent: rash - *Routine Neurological Exam Present: alert, oriented X3 Assessment and Plan - Assessment and plan all Dx Assessment and Plan for all problems:: Rounded with Dr. Umana all orders per [place] ct chest r/o pe tropoin q3 abg
[2018-08-18 09:54] LABS: ABG Base Excess -0.2 mmol/L (-2.4-2.3); ABG HCO3 23.8 mmhg (22.0-26.0); ABG Oxygen Saturation 95 % (90-100); ABG PCO2 35.1 mmhg (35.0-45.0); ABG PH 7.45 mmol/L (7.35-7.45); ABG PO2 73.6 mmhg (80-100); ABG TCO2 24.9 mmhg (23-27)
[2018-08-18 09:56] LABS: Allen's Test Acceptable; Oxygen 28% %
--- NOTE | 2018-08-18 14:45 | Consult Report ---
*Admission Date: 08/17/18 *Chief complaint: h/o lung cancer *History of present illness: 83 yo aam we are ask to see for h/o lung cancer. per chart review he was dx with lung cancer about 9 years ago treated with chemo/xrt in [place] under the direction of Dr. Arvizu. last year he was evaluated for increasing sob and ct scan was done demonstrating an enlarging left lower lobe mass. he was referred for bronch at and bx returned negative for cancer. it was recommended he have ct guided bx of lung lesion however it does not appear this was done. pt is poor historian. he recently had ct of chest demonstrating increasing consolidation in left perihilar region/cem with ddx pna, xrt fibrosis, or recu rrent neoplasm. noted consolidation in left lung base and an enlarging lesion within hepatic dome c/w metastatic disease measuring 2.4 cm. it appears to have increased in size since may 2018. pt is admitted now for dizziness and nausea. ct of head shows no evidence of metastatic disease. I am ask to consult for additional w/up of liver mass given his h/o lung cancer. pt appears weak and debilitated. [facility] History Medical History: Reports:: Anxiety, Cancer, Chronic Obstructive Pulmonary Disease (COPD), Gastroesophageal Reflux Disease(GERD), Hyperlipidemia Denies:: Diabetes Mellitus Type 1, Diabetes Mellitus Type 2, MRSA Other Surgeries: Yes: Cancer Surgery, Colonoscopy, Other Amputation: No Fractures: No - *Social History Smoking Status: Current every day smoker Tobacco Type: cigarettes # Packs/Day (cigarettes): 1 Alcohol Intake: never Alcohol Intake Frequency:: other Substance Use Type: denies use Occupational Status: retired Housing: apartment Household Members: none - Psychiatric History Expresses thoughts of harming self/others: None Suicide Plan Description: No Plan Pschychiatric History:: Reports:: Anxiety *Family Hx:: Non-contributory Review of Systems - Constitutional Reports fatigue, Reports increased appetite, Reports lack of energy, Reports weight loss - *Cardiovascular Reports shortness of breath, Reports shortness of breath with activity - *Respiratory Reports cough, Reports shortness of breath - *Gastrointestinal Reports abdominal pain - *Neurologic Reports dizziness, Reports dizziness, Reports weakness (pt denies, friend repor ts progressive x months), Denies abnormal hearing, Denies behavioral changes, Denies confusion, Denies headache(s) - Hematologic/Lymphatic Reports easy bruising Meds Home Medications Medication Instructions Recorded Confirmed Type glycopyrrolate 9 mcg-formoterol 2 puff INHALATION BID 01/18/18 08/17/18 History 4.8 mcg HFA aerosol inhaler Famotidine [Acid Nut Blanker Operator] 20 mg PO BID 03/29/18 08/17/18 History dilTIAZem HCl [Diltiazem 240mg 240 mg PO DAILY 03/29/18 08/17/18 History 24Hr ER Cap] Tamsulosin HCl [Flomax 0.4mg 0.4 mg PO HS 06/03/18 08/17/18 History capsule] Roflumilast [Daliresp] 500 mcg PO DAILY 07/18/18 08/17/18 History Albuterol Sulfate [Albuterol 2.5 mg IH QID 08/17/18 08/17/18 History 0.083% 2.5mg/3mL neb] Buspirone HCl 7.5 mg PO BID 08/18/18 08/18/18 History predniSONE [Deltasone 10mg 10 mg PO DAILY 08/18/18 08/18/18 History tablet] Allergies Allergy/AdvReac Type Severity Reaction Status Date / Time tramadol [TRAMADOL] Allergy Unknown HIVES/ITCHI Verified 08/17/18 12:46 NG Exam Vital signs and Labs for Last 24 Hours: Temp Pulse Resp BP Pulse Ox 97.9 F 80 18 107/65 100 08/18/18 11:31 08/18/18 11:31 08/18/18 11:31 08/18/18 11:31 08/18/18 11:31 Laboratory Results - last 24 hr 08/18/18 06:35: WBC 6.6, RBC 4.27 L, Hgb 12.2 L D, Hct 38.0 L, MCV 89.0, MCH 28.3, MCHC 31.8, RDW 16.0, Plt Count 224 D, MPV 7.3 L, Neut % (Auto) 71.5, Lymph % (Auto) 17.0, [place] % (Auto) 10.7 H, Eos % (Auto) 0.6, Baso % (Auto) 0.2, Neut # (Auto) 4.7, Lymph # (Auto) 1.1, [place] # (Auto) 0.7, Eos # (Auto) 0.0, Baso # (Auto) 0.0 08/18/18 06:35: Sodium 143, Potassium 3.0 L, Chloride 108 H, Carbon Dioxide 31, Anion Gap 7.0, BUN 7 D, Creatinine 0.53 L D, Estimated Creat Clear 46, Estimated GFR 149, Est GFR ( Amer) 181 D, Glucose 146 H, Calcium 8.1 L, Phosphorus 1.9 L, Magnesium 1.8, Total Bilirubin 0.3, AST 15, ALT 30, Alkaline Phosphatase 87, Total Protein 5.5 L, Albumin 2.3 L D, Globulin 3.2, Albumin/Globulin Ratio 0.7 L 08/18/18 08:43: Specimen Source Right radial, O2 % 28%, ABG pH 7.45, ABG pCO2 35.1, ABG pO2 73.6 L, ABG HCO3 23.8, ABG Total CO2 24.9, ABG O2 Saturation 95, ABG Base Excess -0.2, Enrique Test Acceptable 08/18/18 09:10: Troponin I < 0.02 08/18/18 12:00: Troponin I < 0.02 I & O for Last 24 hours: Intake & Output 08/16/18 08/17/18 08/18/18 08/19/18 11:59 11:59 11:59 11:59 Intake Total 347 / 347 240 / 240 Output Total 500 / 500 200 / 200 Balance -153 / -153 40 / 40 Weight 123 lb 9 oz Microbiology Reports for the Last 24 Hours: Microbiology 08/17/18 17:25 Sputum - Expectorated Sputum Gram Stain - Final 08/17/18 17:25 Sputum - Expectorated Sputum Sputum Culture - Preliminary - *Routine Respiratory Exam Present: decreased breath sounds Internal Medicine - CN: Reslt - Labs CBC & Chem 7: 08/18/18 06:35 08/18/18 06:35 Labs: Short CBC 08/18/18 Range/Units 06:35 WBC 6.6 (4.8-10.8) K/mm3 Hgb 12.2 L D (14.1-18.0) g/dL Hct 38.0 L (42.0-52.0) % Plt Count 224 D (142-424) K/mm3 BMP 08/18/18 06:35 Sodium 143 Potassium 3.0 L Chloride 108 H Carbon Dioxide 31 BUN 7 D Creatinine 0.53 L D Glucose 146 H Calcium 8.1 L Cardiac Enzymes 08/18/18 08/18/18 Range/Units 09:10 12:00 Troponin I < 0.02 < 0.02 (0.00-0.06) ng/ml Liver Function 08/18/18 Range/Units 06:35 Total Bilirubin 0.3 (0.2-1.0) mg/dL AST 15 (15-37) U/L ALT 30 (12-78) U/L Alkaline Phosphatase 87 (46-116) U/L Albumin 2.3 L D (3.4-5.0) gm/dL - ABG Interpretation ABG results: 08/18/18 08:43 ABG pH 7.45 ABG pCO2 35.1 ABG pO2 73.6 L ABG HCO3 23.8 ABG Total CO2 24.9 ABG O2 Saturation 95 ABG Base Excess -0.2 Assessment and Plan - Assessment and plan all Dx Assessment and Plan for all problems:: 1. h/o lung cancer- 9 years ago. treated with chemo/xrt. now with enlarging liver lesion. would need biopsy of liver lesion for confirmation of metastatic disease or to determine if there is a new primary. he is unsure at this time if he wants to pursue this given his acute illness. I have recommended he f/up in the office in 2 weeks after his acute illness has improved so that I can more reliably assess his overall PS and to determine if he would even be a candidate for systemic treatment. at this time his performance status would need to improved significantly before I would consider him eligible for treatment and even then would be palliative and not curative. I mentioned to him to consider palliative/hospice care and if he chose this we would not want to pursue a biopsy. again I will see him again in 2 weeks in the office and hopefully his PS has improved. he is agreeable. thank you for referral. please call with questions. Kathy Khalil MD
--- NOTE | 2018-08-19 12:04 | Progress Note ---
Internal Medicine - PN: Subj *Date: 08/19/18 *Time: 08:30 Interval history: doing better this am - less sob , no pul emboli - dr renae note reviewed Exam Vital signs and Labs for Last 24 Hours: Temp Pulse Resp BP Pulse Ox 98.1 F 103 H 18 96/47 99 08/19/18 08:00 08/19/18 08:24 08/19/18 08:00 08/19/18 08:00 08/19/18 08:00 Laboratory Results - last 24 hr 08/18/18 12:00: Troponin I < 0.02 08/18/18 14:50: Troponin I < 0.02 08/18/18 17:46: Troponin I < 0.02 08/18/18 20:45: Troponin I < 0.02 08/18/18 23:40: Troponin I < 0.02 I & O for Last 24 hours: Intake & Output 08/16/18 08/17/18 08/18/18 08/19/18 11:59 11:59 11:59 11:59 Intake Total 447 / 447 2140 / 2140 Output Total 500 / 500 1100 / 1100 Balance -53 / -53 1040 / 1040 Weight 123 lb 9 oz Microbiology Reports for the Last 24 Hours: Microbiology 08/17/18 17:25 Sputum - Expectorated Sputum Gram Stain - Final 08/17/18 17:25 Sputum - Expectorated Sputum Sputum Culture - Preliminary Gram Negative Rods - Constitutional no acute distress, cachectic - *Routine HEENT Exam Head: Present: normocephalic Eye: Present: EOMI, PERRL ENT: Present: mucous membranes dry - *Routine Neck Exam Present: supple - *Routine Respiratory Exam Present: decreased breath sounds - *Routine Cardiovascular Exam Present: RRR, murmur - *Routine Abdominal Exam Present: soft - *Routine Extremities Exam Absent: calf tenderness - *Routine Skin Exam Present: intact - *Routine Neurological Exam Present: alert, CN II-XII intact - Routine Psychiatric Exam Present: normal affect Assessment and Plan (1) Liver lesion Current visit: Yes Status: Acute Category: Medical Code(s): K76.9 - Liver disease, unspecified (2) COPD with exacerbation Current visit: No Status: Acute Category: Medical Code(s): J44.1 - Chronic obstructive pulmonary disease with (acute) exacerbation (3) Lung cancer Current visit: Yes Status: Acute Qualifiers: Laterality: unspecified laterality Lung location: unspecified part of lung Qualified Code(s): C34.90 - Malignant neoplasm of unspecified part of unspecified bronchus or lung Category: Medical Code(s): C34.90 - Malignant neoplasm of unspecified part of unspecified bronchus or lung (4) Low BMI Current visit: Yes Status: Acute Category: Medical (5) Celiac artery stenosis Current visit: Yes Status: Acute Category: Medical Code(s): 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
--- NOTE | 2018-08-19 13:26 | Consult Report ---
History of Present Illness Consult date: 08/19/18 Requesting physician: Jeff Umana Chief complaint: Wt loss Additional Medical History:: 1. Tobacco use, continued A. COPD 2. Lung cancer with possible metastasis to the liver, 07/2018, with original cancer approximately 2010 3. Hypertension 4. Anxiety History of present illness: 83-year-old black male admitted for several day history of nausea without vomiting or diarrhea. Patient has a history of lung cancer 9 years ago for which he underwent chemotherapy and x-ray therapy. Reportedly recently saw an oncologist who noted an increase in size in his lung lesion and possible metastasis to the liver. 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 Cardiology has been consulted for evaluation and possible intervention of this artery. Patient has lost about 60 pounds in the last year. He denies any abdominal pain with eating but states his appetite has diminished. He was seen earlier today by oncology with recommendation for palliative care. [facility] History Medical History: Reports:: Anxiety, Cancer, Chronic Obstructive Pulmonary Disease (COPD), Gastroesophageal Reflux Disease(GERD), Hyperlipidemia Denies:: Diabetes Mellitus Type 1, Diabetes Mellitus Type 2, MRSA Other Surgeries: Yes: Cancer Surgery, Colonoscopy, Other Amputation: No Fractures: No - *Social History Smoking Status: Current every day smoker Tobacco Type: cigarettes # Packs/Day (cigarettes): 1 Alcohol Intake: never Alcohol Intake Frequency:: other Substance Use Type: denies use Occupational Status: retired Housing: apartment Household Members: none - Psychiatric History Expresses thoughts of harming self/others: None Suicide Plan Description: No Plan Pschychiatric History:: Reports:: Anxiety *Family Hx:: Non-contributory Meds Home Medications Medication Instructions Recorded Confirmed Type glycopyrrolate 9 mcg-formoterol 2 puff INHALATION BID 01/18/18 08/17/18 History 4.8 mcg HFA aerosol inhaler Famotidine [Acid Financial Aid Officer] 20 mg PO BID 03/29/18 08/17/18 History dilTIAZem HCl [Diltiazem 240mg 240 mg PO DAILY 03/29/18 08/17/18 History 24Hr ER Cap] Tamsulosin HCl [Flomax 0.4mg 0.4 mg PO HS 06/03/18 08/17/18 History capsule] Roflumilast [Daliresp] 500 mcg PO DAILY 07/18/18 08/17/18 History Albuterol Sulfate [Albuterol 2.5 mg IH QID 08/17/18 08/17/18 History 0.083% 2.5mg/3mL neb] Buspirone HCl 7.5 mg PO BID 08/18/18 08/18/18 History predniSONE [Deltasone 10mg 10 mg PO DAILY 08/18/18 08/18/18 History tablet] Allergies Allergy/AdvReac Type Severity Reaction Status Date / Time tramadol [TRAMADOL] Allergy Unknown HIVES/ITCHI Verified 08/17/18 12:46 NG Review of Systems - *Cardiovascular Reports shortness of breath, Reports shortness of breath with activity, Denies chest pain - *Respiratory Reports shortness of breath with activity - *Gastrointestinal Reports nausea, Denies abdominal pain - *Genitourinary Denies blood in urine - *Musculoskeletal Denies muscle cramps - *Neurologic Reports dizziness, Reports dizziness, Reports weakness (pt denies, friend reports progressive x months), Denies abnormal hearing, Denies behavioral changes, Denies confusion, Denies headache(s) Exam Vital signs and Labs for Last 24 Hours: Temp Pulse Resp BP Pulse Ox 98.6 F 90 20 115/61 97 08/19/18 12:00 08/19/18 12:50 08/19/18 12:00 08/19/18 12:00 08/19/18 12:00 Laboratory Results - last 24 hr 08/18/18 14:50: Troponin I < 0.02 08/18/18 17:46: Troponin I < 0.02 08/18/18 20:45: Troponin I < 0.02 08/18/18 23:40: Troponin I < 0.02 I & O for Last 24 hours: Intake & Output 08/17/18 08/18/18 08/19/18 08/20/18 11:59 11:59 11:59 11:59 Intake Total 447 / 447 2140 / 2140 Output Total 500 / 500 1100 / 1100 150 / 150 Balance -53 / -53 1040 / 1040 -150 / -150 Weight 123 lb 9 oz 123 lb 9 oz Microbiology Reports for the Last 24 Hours: Microbiology 08/17/18 17:25 Sputum - Expectorated Sputum Gram Stain - Final 08/17/18 17:25 Sputum - Expectorated Sputum Sputum Culture - Preliminary Gram Negative Rods - *Routine Neck Exam Present: supple. Absent: JVD, carotid bruit - *Routine Respiratory Exam Present: CTA bilaterally. Absent: accessory muscle use, rales, rhonchi, wheezes - *Routine Cardiovascular Exam Present: RRR. Absent: murmur, gallop, rubs - *Routine Abdominal Exam Present: soft. Absent: tenderness, distended, guarding - *Routine Extremities Exam Absent: edema, calf tenderness - *Routine Neurological Exam Present: alert, oriented X3, moving all extremities Assessment and Plan (1) Liver lesion Current visit: Yes Status: Acute Category: Medical Code(s): K76.9 - Liver disease, unspecified (2) COPD with exacerbation Current visit: No Status: Acute Category: Medical Code(s): J44.1 - Chronic obstructive pulmonary disease with (acute) exacerbation (3) Lung cancer Current visit: Yes Status: Acute Qualifiers: Laterality: unspecified laterality Lung location: unspecified part of lung Qualified Code(s): C34.90 - Malignant neoplasm of unspecified part of unspecified bronchus or lung Category: Medical Code(s): C34.90 - Malignant neoplasm of unspecified part of unspecified bronchus or lung (4) Low BMI Current visit: Yes Status: Acute Category: Medical (5) Celiac artery stenosis Current visit: Yes Status: Acute Category: Medical Code(s): 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 Risks, benefits and procedure explained. Patient agrees to proceed. We will perform later today.
[2018-08-20 06:06] LABS: Eosinophils # 0.1 K/mm3 (0.0-0.4); Eosinophils % 0.4 % (0.1-12.0); Hematocrit 36.3 % (42.0-52.0); Hemoglobin 12.4 g/dL (14.1-18.0); Lymphocytes # 0.6 K/mm3 (0.7-4.5); Lymphocytes % 4.3 K/mm3 (10-50); Mean Corpuscular HGB Conc 34.1 g/dL (31.8-35.4); Mean Corpuscular Hemoglobin 30.3 pg (27.0-31.2); Mean Corpuscular Volume 88.9 fl (80-94); Mean Platelet Volume 7.1 fl (7.4-10.4); Monocytes # 0.7 K/mm3 (0.1-1.0); Monocytes % 4.7 % (1.7-9.3); Neutrophils # 12.8 K/mm3 (1.8-7.8); Neutrophils % 90.6 % (37.0-80.0); Platelet Count 265 K/mm3 (142-424); Red Blood Count 4.09 M/mm3 (4.60-6.20); Red Cell Distribution Width 15.9 % (11.5-17.5); White Blood Count 14.1 K/mm3 (4.8-10.8)
[2018-08-20 06:37] LABS: Anion Gap 11.5 mEq/L (5-15); Calcium 8.8 mg/dL (8.5-10.1); Potassium 3.5 mmoL/L (3.5-5.1)
[2018-08-20 07:08] LABS: Lymphocytes % 6 % (10-50); Monocytes % 3 % (2-9); Neutrophils % 90 % (42-76); Total Cells Counted 100
[2018-08-20 07:09] LABS: RBC Morphology Normal
--- NOTE | 2018-08-20 08:12 | Progress Note ---
Internal Medicine - PN: Subj *Date: 08/20/18 *Time: 08:09 Interval history: doing better after stenting and should help diet - has some tachycardia and reviewed i/o with rn - amarilys to come out of stepdown and noted to have pseudomonas aeruginosa in sputum Exam Vital signs and Labs for Last 24 Hours: Temp Pulse Resp BP Pulse Ox 97.1 F L 99 H 96 H 113/63 97 08/20/18 07:52 08/20/18 06:00 08/20/18 06:00 08/20/18 06:00 08/20/18 06:00 Laboratory Results - last 24 hr 08/19/18 15:15: Activated Clotting Time 264 H* 08/20/18 05:35: WBC 14.1 H D, RBC 4.09 L, Hgb 12.4 L, Hct 36.3 L, MCV 88.9, MCH 30.3, MCHC 34.1, RDW 15.9, Plt Count 265, MPV 7.1 L, Neut % (Auto) 90.6 H, Lymph % (Auto) 4.3 L, [place] % (Auto) 4.7, Eos % (Auto) 0.4, Baso % (Auto) 0.0 L, Neut # (Auto) 12.8 H, Lymph # (Auto) 0.6 L, [place] # (Auto) 0.7, Eos # (Auto) 0.1, Baso # (Auto) 0.0, Total Counted 100, Neutrophils % (Manual) 90 H, Lymphocytes % (Manual) 6 L, Atypical Lymphs % 1.0, Monocytes % (Manual) 3, Platelet Estimate Normal, RBC Morphology Normal 08/20/18 05:35: Sodium 143, Potassium 3.5, Chloride 106, Carbon Dioxide 29, Anion Gap 11.5, BUN 10 D, Creatinine 0.65 L D, Estimated Creat Clear 52, Estimated GFR 118, Est GFR ( Amer) 143 D, Glucose 177 H, Calcium 8.8 I & O for Last 24 hours: Intake & Output 08/17/18 08/18/18 08/19/18 08/20/18 11:59 11:59 11:59 11:59 Intake Total 447 / 447 2140 / 2140 2221 / 2221 Output Total 500 / 500 1100 / 1100 725 / 725 Balance -53 / -53 1040 / 1040 1496 / 1496 Weight 123 lb 9 oz 139 lb 4 oz Microbiology Reports for the Last 24 Hours: Microbiology 08/17/18 17:25 Sputum - Expectorated Sputum Gram Stain - Final 08/17/18 17:25 Sputum - Expectorated Sputum Sputum Culture - Final Pseudomonas aeruginosa 08/17/18 16:42 Blood Blood Culture - Preliminary NO GROWTH AFTER 48 HOURS 08/17/18 16:42 Blood Blood Culture - Preliminary NO GROWTH AFTER 48 HOURS - Constitutional cachectic - *Routine HEENT Exam Head: Present: normocephalic Eye: Present: EOMI, PERRL ENT: Present: mucous membranes dry - *Routine Neck Exam Present: supple - *Routine Respiratory Exam Present: decreased breath sounds, rhonchi - *Routine Cardiovascular Exam Present: RRR, murmur - *Routine Abdominal Exam Present: soft - *Routine Extremities Exam Absent: calf tenderness - *Routine Skin Exam Present: intact - *Routine Neurological Exam Present: alert, CN II-XII intact - Routine Psychiatric Exam Present: normal affect Assessment and Plan (1) Liver lesion Current visit: Yes Status: Acute Category: Medical Code(s): K76.9 - Liver disease, unspecified (2) COPD with exacerbation Current visit: No Status: Acute Category: Medical Code(s): J44.1 - Chronic obstructive pulmonary disease with (acute) exacerbation (3) Lung cancer Current visit: Yes Status: Acute Qualifiers: Laterality: unspecified laterality Lung location: unspecified part of lung Qualified Code(s): C34.90 - Malignant neoplasm of unspecified part of unspecified bronchus or lung Category: Medical Code(s): C34.90 - Malignant neoplasm of unspecified part of unspecified bronchus or lung (4) Low BMI Current visit: Yes Status: Acute Category: Medical (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
--- NOTE | 2018-08-21 11:22 | Progress Note ---
Internal Medicine - PN: Subj *Date: 08/21/18 *Time: 11:21 Exam Vital signs and Labs for Last 24 Hours: Temp Pulse Resp BP Pulse Ox 97.7 F 115 H 24 107/73 2 L 08/21/18 07:48 08/21/18 07:48 08/21/18 07:48 08/21/18 07:48 08/21/18 08:00 I & O for Last 24 hours: Intake & Output 08/18/18 08/19/18 08/20/18 08/21/18 23:59 23:59 23:59 23:59 Intake Total 1999 / 1999 2325 / 2325 1536 / 1536 1080 / 1080 Output Total 600 / 600 1250 / 1250 175 / 175 400 / 400 Balance 1400 / 1400 1075 / 1075 1361 / 1361 680 / 680 Weight 56.047 kg 56.047 kg 63.163 kg Assessment and Plan (1) Liver lesion Current visit: Yes Status: Acute Category: Medical Code(s): K76.9 - Liver disease, unspecified (2) COPD with exacerbation Current visit: No Status: Acute Category: Medical Code(s): J44.1 - Chronic obstructive pulmonary disease with (acute) exacerbation (3) Lung cancer Current visit: Yes Status: Acute Qualifiers: Laterality: unspecified laterality Lung location: unspecified part of lung Qualified Code(s): C34.90 - Malignant neoplasm of unspecified part of unspecified bronchus or lung Category: Medical Code(s): C34.90 - Malignant neoplasm of unspecified part of unspecified bronchus or lung (4) Low BMI Current visit: Yes Status: Acute Category: Medical (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
--- NOTE | 2018-08-21 16:14 | Progress Note ---
Internal Medicine - PN: Subj Interval history: Patient was admitted on 08/18/18 for LLL and JOSE RAMON pneumonia. Culture shows pseudomonas aeruginosa, susceptible to Levaquin, with which he is currently being treated. Patient has lung cancer and liver metastases. 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 Today he states that he is feeling well without complaints. Exam Vital signs and Labs for Last 24 Hours: Temp Pulse Resp BP Pulse Ox 98.0 F 94 H 20 129/66 98 08/21/18 12:00 08/21/18 12:00 08/21/18 12:00 08/21/18 12:00 08/21/18 12:00 I & O for Last 24 hours: Intake & Output 08/19/18 08/20/18 08/21/18 08/22/18 11:59 11:59 11:59 11:59 Intake Total 2240 / 2240 2221 / 2221 2240 / 2240 220 / 220 Output Total 1100 / 1100 725 / 725 400 / 400 200 / 200 Balance 1140 / 1140 1496 / 1496 1840 / 1840 20 / 20 Weight 139 lb 4 oz - Constitutional no acute distress - *Routine HEENT Exam Head: Present: normocephalic, atraumatic Eye: Present: PERRL ENT: Present: mucous membranes moist, oropharynx clear, TM's clear bilaterally. Absent: sinus tenderness - *Routine Neck Exam Present: supple. Absent: lymphadenopathy - Routine Chest/Breast/Axilla Exam Chest wall: Absent: tenderness - *Routine Respiratory Exam Present: CTA bilaterally. Absent: accessory muscle use - *Routine Cardiovascular Exam Present: RRR - *Routine Extremities Exam Absent: cyanosis, clubbing - *Routine Skin Exam Present: intact, dry. Absent: cyanosis, erythema - *Routine Neurological Exam Present: alert, oriented X3 - Routine Psychiatric Exam Present: normal affect Assessment and Plan (1) Liver lesion Current visit: Yes Status: Acute Category: Medical Code(s): K76.9 - Liver disease, unspecified (2) COPD with exacerbation Current visit: No Status: Acute Category: Medical Code(s): J44.1 - Chronic obstructive pulmonary disease with (acute) exacerbation (3) Lung cancer Current visit: Yes Status: Acute Qualifiers: Laterality: unspecified laterality Lung location: unspecified part of lung Qualified Code(s): C34.90 - Malignant neoplasm of unspecified part of unspecified bronchus or lung Category: Medical Code(s): C34.90 - Malignant neoplasm of unspecified part of unspecified bronchus or lung (4) Low BMI Current visit: Yes Status: Acute Category: Medical (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
--- NOTE | 2018-08-22 07:42 | Discharge Summary ---
General - General Admission date:: 08/18/18 Discharge date: 08/22/18 HPI HPI: 83-year-old male presents the emergency room with nausea for the past 5 days no vomiting or diarrhea but he has had some dizziness. Patient denies chest pain but is complaining of shortness of breath this morning. Patient reports history of lung cancer and is recently been undergoing treatment plans were stopped by his oncology due to enlarging of the mass and metastases to the liver. Patient states he was told by his oncologist that there was nothing else they could do. Patient admitted for pneumonia. Will do CT of chest to rule out PE due to history of cancer and wells score a 5.5. Will workup cardiac due to shortness of breath. Consult placed for Dr. Renae for consult lung cancer with metastases to liver. Hospital Course Hospital Course: pt with slow but steady improvement over the last few days with ivf fluids and abx with steroids - pt was seen by dr renae-yo aam we are ask to see for h/o lung cancer. per chart review he was dx with lung cancer about 9 years ago treated with chemo/xrt in [place] under the direction of Dr. Arvizu. last year he was evaluated for increasing sob and ct scan was done demonstrating an enlarging left lower lobe mass. he was referred for bronch at and bx returned negative for cancer. it was recommended he have ct guided bx of lung lesion however it does not appear this was done. pt is poor historian. he recently had ct of chest demonstrating increasing consolidation in left perihilar region/cem with ddx pna, xrt fibrosis, or recurrent neoplasm. noted consolidation in left lung base and an enlarging lesion within hepatic dome c/w metastatic disease measuring 2.4 cm. it appears to have increased in size since may 2018. pt is admitted now for dizziness and nausea. ct of head shows no evidence of metastatic disease. I am ask to consult for additional w/up of liver mass given his h/o lung cancer. pt appears weak and debilitated. /o lung cancer- 9 years ago. treated with chemo/xrt. now with enlarging liver lesion. would need biopsy of liver lesion for confirmation of metastatic disease or to determine if there is a new primary. he is unsure at this time if he wants to pursue this given his acute illness. I have recommended he f/up in the office in 2 weeks after his acute illness has improved so that I can more reliably assess his overall PS and to determine if he would even be a candidate for systemic treatment. at this time his performance status would need to improved significantly before I would consider him eligible for treatment and even then would be palliative and not curative. I mentioned to him to consider palliative/hospice care and if he chose this we would not want to pursue a biopsy. again I will see him again in 2 weeks in the office and hopefully his PS has improved. he is agreeable. thank you for referral. please call with questions. pt had celiac art stenosis repaired as pt had element of mesenteric ischemia Objective Vital signs: Temp Pulse Resp BP Pulse Ox 97.9 F 96 H 18 113/64 95 08/22/18 04:00 08/22/18 06:00 08/22/18 04:00 08/22/18 04:00 08/22/18 06:00 no acute distress - *Routine HEENT Exam Head: Present: normocephalic Eye: Present: EOMI, PERRL ENT: Present: mucous membranes dry - *Routine Neck Exam Present: supple - *Routine Respiratory Exam Present: decreased breath sounds, wheezes - *Routine Cardiovascular Exam Present: RRR, murmur, S4 - *Routine Abdominal Exam Present: soft - *Routine Extremities Exam Present: full ROM - *Routine Skin Exam Present: intact - *Routine Neurological Exam Present: alert, CN II-XII intact - Routine Psychiatric Exam Present: normal affect Results Labs on day of discharge: Preliminary micro results at discharge 08/17/18 16:42 Blood Culture - Preliminary Blood NO GROWTH AFTER 48 HOURS 08/17/18 16:42 Blood Culture - Preliminary Blood NO GROWTH AFTER 48 HOURS DS: Diagnosis - Discharge Diagnosis (1) Liver lesion Status: Acute (2) COPD with exacerbation Status: Acute (3) Lung cancer Status: Acute (4) Low BMI Status: Acute (5) Celiac artery stenosis Status: Acute (6) Pseudomonas pneumonia Status: Acute Discharge Plan - Patient Discharge Instructions ACTIVITY: Continue current activity DIET: continue same diet - Follow up Plan Disposition: Home, Self-Long-Term Medications: Home Medications Medication Instructions Recorded Confirmed Type glycopyrrolate 9 mcg-formoterol 2 puff INHALATION BID 01/18/18 08/17/18 History 4.8 mcg HFA aerosol inhaler Famotidine [Acid Payroll Clerk] 20 mg PO BID 03/29/18 08/17/18 History Tamsulosin HCl [Flomax 0.4mg 0.4 mg PO HS 06/03/18 08/17/18 History capsule] Roflumilast [Daliresp] 500 mcg PO DAILY 07/18/18 08/17/18 History Albuterol Sulfate [Albuterol 2.5 mg IH QID 08/17/18 08/17/18 History 0.083% 2.5mg/3mL neb] Buspirone HCl 7.5 mg PO BID 08/18/18 08/18/18 History predniSONE [Deltasone 10mg 10 mg PO DAILY 08/18/18 08/18/18 History tablet] Prescriptions/Medication Reconciliation: New Buspirone HCl [Buspar 5mg tablet] 7.5 mg PO BID tablet Hydrocod/Acet 5/325 mg [[place] 5/325mg tablet] 1 tab PO Q6HP PRN tablet PRN Reason: Breakthru Moderate Pain Nicotine [Nicoderm 21mg/24hr patch] 21 mg TD DAILY patch.[id number] Potassium Chloride [Klor-Con 10mEq tab] 10 meq PO DAILY tablet.er levoFLOXacin [Levaquin 500mg tab] 500 mg PO DAILY #7 tab predniSONE [Prednisone 20mg Tab] 20 mg PO BID #10 tab Continue glycopyrrolate 9 mcg-formoterol 4.8 mcg HFA aerosol inhaler 2 puff INHALATION BID gabapentin 400 mg capsule 400 mg PO TID 30 Days #90 cap lorazepam 0.5 mg tablet 0.5 mg PO HS #30 tab ipratropium-albuterol 0.5 mg-3 mg(2.5 mg base)/3 mL nebulization soln 3 ml INHALATION TID #90 ml omeprazole magnesium 20 mg tablet,delayed release 20 mg PO DAILY #30 tab amlodipine 5 mg tablet 5 mg PO DAILY #90 tab atorvastatin 10 mg tablet 10 mg PO HS #90 tab ondansetron HCl 8 mg tablet 8 mg PO NEEDED PRN #20 tab PRN Reason: Nausea metoprolol tartrate 50 mg tablet 50 mg PO BID #60 tab Famotidine [Acid Payroll Clerk] 20 mg PO BID Buspirone HCl 7.5 mg PO BID Tamsulosin HCl [Flomax 0.4mg capsule] 0.4 mg PO HS Roflumilast [Daliresp] 500 mcg PO DAILY Albuterol Sulfate [Albuterol 0.083% 2.5mg/3mL neb] 2.5 mg IH QID Discontinued aspirin 325 mg tablet 325 mg PO DAILY #90 tab predniSONE [Deltasone 10mg tablet] 10 mg PO DAILY
== END 2018-08-22 15:55 | disposition home or self-care (01) ==
LOC: UTC 12:25 → 2ND 12:25
PROVIDERS: ADMIT Emergency Medicine; ATTEND Emergency Medicine

== ENCOUNTER 2018-09-03 12:12 | Observation (INO) ==
--- NOTE | 2018-09-03 12:36 | Emergency Department Note ---
ED Disposition Clinical Impression: COPD exacerbation, Tobacco use disorder, Lung cancer, Liver metastasis Disposition: Still a Patient Condition on Discharge: Fair Referrals: Annette Lorenz APRN [Primary Care Provider] - - Critical Care Critical Care Time: No Attestation: On 09/03/18, the high probability of a clinically significant, sudden or life threatening deterioration of the following system(s) required my full and direct attention, intervention and personal management. The time I documented below is in addition to time spent performing reported procedures but includes the following listed in this critical care notation. Medical Decision Making - Gabo Inquiry Pt receiving controlled substance: No Gabo was queried for this patient: No Vital Signs: 09/03/18 12:22 09/03/18 12:51 Temperature 98.0 F Temperature Source Oral Pulse Rate 95 H Pulse Rate [Right Brachial] 95 H Respiratory Rate 26 H Blood Pressure [Right Arm] 108/63 L Blood Pressure Mean [Right Arm] 78 Blood Pressure Source [Right Arm] Automatic Cuff Blood Pressure Position [Right Arm] Sitting 02 Sat by Pulse Oximetry 93 L 95 Oxygen Delivery Method Nasal Cannula Nasal Cannula Oxygen Flow Rate (LPM) 2 2 - Lab Data Lab Results 09/03/18 12:25: WBC 7.5, RBC 4.71, Hgb 13.2 L, Hct 42.3, MCV 89.9, MCH 28.1, MCHC 31.3 L, RDW 16.5, Plt Count 248, MPV 7.4, Neut % (Auto) 75.2, Lymph % (Auto) 14.6, [place] % (Auto) 7.7, Eos % (Auto) 2.4, Baso % (Auto) 0.1, Neut # (Auto) 5.6, Lymph # (Auto) 1.1, [place] # (Auto) 0.6, Eos # (Auto) 0.2, Baso # (Auto) 0.0 09/03/18 12:25: Sodium 144, Potassium 3.1 L, Chloride 106, Carbon Dioxide 30, Anion Gap 11.1, BUN 12, Creatinine 0.71, Estimated Creat Clear 56, Estimated GFR 106, Est GFR ( Amer) 129, Glucose 139 H, Calcium 8.5, Total Bilirubin 0.3, AST 26, ALT 45, Alkaline Phosphatase 138 H, Troponin I < 0.02, Total Protein 6.6, Albumin 2.7 L, Globulin 3.9 H, Albumin/Globulin Ratio 0.7 L 09/03/18 12:25: B-Natriuretic Peptide 119 H 09/03/18 12:26: ABG pH 7.43 Result diagrams: 09/03/18 12:25 09/03/18 12:25 Orders (Tests/Meds): ED MEDICATIONS Generic Name Dose Route Start Last Admin Trade Name Freq PRN Reason Stop Dose Admin Albuterol/Ipratropium 3 ml 09/03/18 12:45 Duoneb 3ml [facility] 10/03/18 12:44 Q1H VIRA Ceftriaxone Sodium 1 gm/ 50 mls @ 100 mls/hr 09/03/18 12:45 09/03/18 12:46 Sodium Chloride IV 09/17/18 12:44 100 mls/hr Q24H VIRA Administration Protocol Sodium Chloride 3 ml 09/03/18 12:26 Sodium Chloride 3% 15ml [facility] 10/03/18 12:25 ONCE PRN INDUCE SPUTUM COLLECTION Discontinued Medications Generic Name Dose Route Start Last Admin Trade Name Freq PRN Reason Stop Dose Admin Famotidine 20 mg 09/03/18 12:37 09/03/18 12:46 Pepcid 20mg/2ml Vial IV 09/03/18 12:38 20 mg ONCE ONE Administration Methylprednisolone Sodium Succinate 125 mg 09/03/18 12:37 09/03/18 12:46 Solu-Medrol 125mg/2ml Vial IV 09/03/18 12:38 125 mg ONCE ONE Administration Potassium Chloride 40 meq 09/03/18 13:24 Klor-Con 20meq Tablet PO 09/03/18 13:25 ONCE ONE ORDERS Category Date Time Status Chest XR -- portable [XR chest portable] Stat Exams 09/03/18 12:25 Taken Sputum Culture & Gram Stain Stat Micro 09/03/18 12:26 Ordered ABG PH Stat RT 09/03/18 12:26 Ordered Medical Decision Narrative: MPRESSION: 1. No evidence of acute pulmonary. 2. Increasing consolidation in the left perihilar region/left upper lobe centrally which may be due to worsening pneumonia, radiation fibrosis, or recurrent neoplasm 3. Consolidation is present in the left lung base with associated air-fluid level within a bulla consistent with an undetectable small left pleural effusion. 4. Severe centrilobular and paraseptal emphysema. 5. Enlarging lesion within hepatic dome consistent with metastatic disease 6. 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 The patient received multiple DuoNeb breathing treatments steroids and IV antibiotics with some improvement but he was unable to resume his basic activities. I contacted his primary care physician Dr. Umana admit who will be admitting him for more steroid therapy and DuoNeb. Resp/SOB HPI - General Chief Complaint: Shortness of Breath/Dyspnea Stated Complaint: sob Time Seen by Provider: 09/03/18 12:25 Mode of Arrival: Wheelchair Limitations: No Limitations Description of Symptoms (Recalled from ER Triage Doc. by RN): SHORTNESS OF AIR - History of Present Illness 83 years old -[place] male smoker with a history of COPD pneumonia and oxygen dependence. He had an episode of pneumonia more than 4 weeks ago. Today he was grocery shopping when he developed shortness of breath and weakness. He denies had chest pain palpitations hemoptysis nausea vomiting coffee-ground emesis hematemesis melanotic stool or bleeding per rectum. He has bilateral pedal edema. MD Complaint: shortness of breath Onset (ago): hour(s) Context: recent illness Severity: moderate Consistency/Duration: constant Relieving factors: oxygen, rest, upright position Exacerbating factors: exertion, movement Known history of: COPD, recurrent pneumonia Associated symptoms: denies other symptoms Treatment prior to arrival: oxygen - Related Data Home Medications Medication Instructions Recorded Confirmed glycopyrrolate 9 mcg-formoterol 2 puff INHALATION BID 01/18/18 09/02/18 4.8 mcg HFA aerosol inhaler Famotidine [Acid Um Nurse] 20 mg PO BID 03/29/18 09/02/18 Tamsulosin HCl [Flomax 0.4mg 0.4 mg PO HS 06/03/18 09/02/18 capsule] Roflumilast [Daliresp] 500 mcg PO DAILY 07/18/18 09/02/18 Albuterol Sulfate [Albuterol 2.5 mg IH QID 08/17/18 09/02/18 0.083% 2.5mg/3mL neb] Previous Rx's Medication Instructions Recorded gabapentin 400 mg capsule 400 mg PO TID 30 Days #90 cap 06/13/18 ipratropium-albuterol 0.5 mg-3 3 ml INHALATION TID #90 ml 06/16/18 mg(2.5 mg base)/3 mL nebulization soln amlodipine 5 mg tablet 5 mg PO DAILY #90 tab 07/07/18 atorvastatin 10 mg tablet 10 mg PO HS #90 tab 07/07/18 omeprazole magnesium 20 mg 20 mg PO DAILY #30 tab 07/07/18 tablet,delayed release metoprolol tartrate 50 mg tablet 50 mg PO BID #60 tab 08/04/18 ondansetron HCl 8 mg tablet 8 mg PO NEEDED PRN #20 tab 08/08/18 Buspirone HCl [Buspar 5mg tablet] 7.5 mg PO BID tab 08/22/18 Hydrocod/Acet 5/325 mg [[place] 1 tab PO Q6HP PRN tab 08/22/18 5/325mg tablet] Potassium Chloride [Klor-Con 10mEq 10 meq PO DAILY tablet.er 08/22/18 tab] levoFLOXacin [Levaquin 500mg 500 mg PO DAILY #7 tab 08/22/18 tab] predniSONE [Prednisone 20mg 20 mg PO BID #10 tab 08/22/18 Tab] lorazepam 0.5 mg tablet 0.5 mg PO BID PRN #28 tab 08/26/18 Allergies Allergy/AdvReac Type Severity Reaction Status Date / Time tramadol [TRAMADOL] Allergy Unknown HIVES/ITCHI Verified 09/02/18 10:22 NG [facility] History I have reviewed the patient's past medical history: Yes Medical History: Reports:: Anxiety, Cancer, Chronic Obstructive Pulmonary Disease (COPD), Gastroesophageal Reflux Disease(GERD), Hyperlipidemia, Hypertension Denies:: Diabetes Mellitus Type 1, Diabetes Mellitus Type 2, MRSA Comment: Cancer Other Surgeries: Yes: Cancer Surgery, Colonoscopy, Other Amputation: No Fractures: No Comment: Gtube, Trac - Social History Educational Level: Completed High School Smoking Status: Current every day smoker Tobacco Type: cigarettes # Packs/Day (cigarettes): 1 Alcohol Intake: never Alcohol Intake Frequency:: other Substance Use Type: denies use Occupational Status: retired Housing: apartment Household Members: none - Psychiatric History Expresses thoughts of harming self/others: None Suicide Plan Description: No Plan Pschychiatric History:: Reports:: Anxiety Family Hx:: Cancer ROS Obtained: Yes All systems reviewed & no additional complaints Physical Exam - General General appearance: alert, in no apparent distress, other (During the examination the patient coughed whitish frothy sputum with streaks of yellow sputum. ) - Head Head exam: atraumatic, normocephalic, normal inspection - Eye Eye exam: Present: normal appearance, PERRL, EOMI. Absent: scleral icterus, nystagmus - ENT ENT exam: Present: normal exam, normal oropharynx, mucous membranes moist, TM's normal bilaterally, normal external ear exam - Neck Neck exam: Present: normal inspection, full ROM, trachea midline. Absent: tenderness, meningismus, lymphadenopathy - Chest Chest inspection: Present: normal inspection, symmetric chest wall rise, other (Barrel shaped chest, moderate air entry bilaterally. ). Absent: tenderness - Respiratory Respiratory exam: Present: normal lung sounds bilaterally. Absent: respiratory distress - Cardiovascular Cardiovascular exam: Present: regular rate, normal rhythm, normal heart sounds. Absent: JVD - Abdominal Exam Abdominal exam: Present: soft, normal bowel sounds. Absent: distention, tenderness, guarding, rebound, rigidity - Extremities Exam Extremities exam: Present: normal inspection, full ROM, normal capillary refill, pedal edema, other (Patient did have 2+ pedal edema and trace edema of the lower extremities bilaterally. ). Absent: tenderness, calf tenderness - Back Exam Back exam: Present: normal inspection. Absent: tenderness - Neurological Exam Neurological exam: Present: alert, oriented X3, CN II-XII intact, motor sensory deficit, reflexes normal - Psychiatric Psychiatric exam: Present: normal affect, normal mood - Skin Skin exam: Present: warm, dry, intact, normal color - Lymphatic Lymphatic Findings: no adenopathy
[2018-09-03 12:48] LABS: Basophils % 0.1 % (0.1-2.0); Eosinophils # 0.2 K/mm3 (0.0-0.4); Eosinophils % 2.4 % (0.1-12.0); Hematocrit 42.3 % (42.0-52.0); Hemoglobin 13.2 g/dL (14.1-18.0); Lymphocytes # 1.1 K/mm3 (0.7-4.5); Lymphocytes % 14.6 K/mm3 (10-50); Mean Corpuscular HGB Conc 31.3 g/dL (31.8-35.4); Mean Corpuscular Hemoglobin 28.1 pg (27.0-31.2); Mean Corpuscular Volume 89.9 fl (80-94); Mean Platelet Volume 7.4 fl (7.4-10.4); Monocytes # 0.6 K/mm3 (0.1-1.0); Monocytes % 7.7 % (1.7-9.3); Neutrophils # 5.6 K/mm3 (1.8-7.8); Neutrophils % 75.2 % (37.0-80.0); Platelet Count 248 K/mm3 (142-424); Red Blood Count 4.71 M/mm3 (4.60-6.20); Red Cell Distribution Width 16.5 % (11.5-17.5); White Blood Count 7.5 K/mm3 (4.8-10.8)
[2018-09-03 13:03] LABS: Alanine Aminotransferase 45 U/L (12-78); Albumin Level 2.7 gm/dL (3.4-5.0); Albumin/Globulin Ratio 0.7 (1.1-1.8); Alkaline Phosphatase 138 U/L (46-116); Anion Gap 11.1 mEq/L (5-15); Aspartate Amino Transferase 26 U/L (15-37); Bilirubin,Total 0.3 mg/dL (0.2-1.0); Blood Urea Nitrogen 12 mg/dL (7-18); Calcium 8.5 mg/dL (8.5-10.1); Carbon Dioxide 30 mmol/L (21.0-32.0); Chloride 106 mmol/L (98-107); Globulin 3.9 gm/dl (1.3-3.2); Glucose 139 mg/dL (74-106); Potassium 3.1 mmoL/L (3.5-5.1); Sodium 144 mmol/L (136-145); Total Protein,Serum 6.6 gm/dL (6.4-8.2)
--- NOTE | 2018-09-03 14:23 | Pharmacy Consult Notes ---
[facility] Pharmacy VTE Monitoring - Patient Demographics Admission date: 09/03/18 Report Date: 09/03/18 Time: 14:22 Allergies/Adverse Reactions: Patient Allergies tramadol [TRAMADOL] Allergy (Unknown, Verified 09/02/18 10:22) HIVES/ITCHING Height: 1.75 m Weight: 68.039 kg Patient Problems: Current Active Problems Lung cancer (Acute) COPD exacerbation (Acute) Tobacco use disorder (Acute) Liver metastasis (Acute) - VTE Risk Labs: VTE Related Lab Results Hgb 13.2 g/dL (14.1-18.0) L 09/03/18 12:25 Hct 42.3 % (42.0-52.0) 09/03/18 12:25 Plt Count 248 K/mm3 (142-424) 09/03/18 12:25 BUN 12 mg/dL (7-18) 09/03/18 12:25 Creatinine 0.71 mg/dL (0.70-1.30) 09/03/18 12:25 Estimated Creat Clear 56 mL/min (0-300) 09/03/18 12:25 - Prophylaxis VTE Prophylaxis Ordered?: Yes Types of VTE Prophylaxis: TEDS Knee High Location of Applied Device: Bilateral Lower Extremeties - VTE Diagnosis Confirmed Treatment or plan recommended: Continue Current Treatment
[2018-09-04 07:11] LABS: Eosinophils % 0.1 % (0.1-12.0); Hematocrit 34.6 % (42.0-52.0); Lymphocytes # 0.4 K/mm3 (0.7-4.5); Lymphocytes % 5.1 K/mm3 (10-50); Mean Corpuscular HGB Conc 31.8 g/dL (31.8-35.4); Mean Corpuscular Hemoglobin 28.5 pg (27.0-31.2); Mean Corpuscular Volume 89.5 fl (80-94); Mean Platelet Volume 7.5 fl (7.4-10.4); Monocytes # 0.2 K/mm3 (0.1-1.0); Monocytes % 2.6 % (1.7-9.3); Neutrophils # 7.5 K/mm3 (1.8-7.8); Neutrophils % 92.2 % (37.0-80.0); Platelet Count 199 K/mm3 (142-424); Red Blood Count 3.87 M/mm3 (4.60-6.20); Red Cell Distribution Width 16.3 % (11.5-17.5); White Blood Count 8.2 K/mm3 (4.8-10.8)
[2018-09-04 07:17] LABS: Anion Gap 8.5 mEq/L (5-15); Calcium 8.1 mg/dL (8.5-10.1); Potassium 3.5 mmoL/L (3.5-5.1)
[2018-09-04 07:20] LABS: Hypochromasia 1+; Lymphocytes % 2 % (10-50); Neutrophils % 92 % (42-76); Polychromasia 2+; Rouleaux 1+; Total Cells Counted 100
--- NOTE | 2018-09-08 13:20 | H&P/Discharge Summary ---
General - General Admission date:: 09/03/18 Discharge date: 09/04/18 *Admission Date: 09/03/18 *Chief complaint: sob *History of present illness: this pt with known copd and resolving cap and prob metastatic cancer presented to the ed with sob -3 years old -[place] male smoker with a history of COPD pneumonia and oxygen dependence. He had an episode of pneumonia more than 4 weeks ago. Today he was grocery shopping when he developed shortness of breath and weakness. He denies had chest pain palpitations hemoptysis nausea vomiting coffee-ground emesis hematemesis melanotic stool or bleeding per rectum . He has bilateral pedal edema- pt was still with sig sx despite at home meds and ed treatment and was admitted for treatment [facility] History I have reviewed the patient's past medical history: Yes Medical History: Reports:: Anxiety, Cancer, Chronic Obstructive Pulmonary Disease (COPD), Gastroesophageal Reflux Disease(GERD), Hyperlipidemia, Hypertension Denies:: Diabetes Mellitus Type 1, Diabetes Mellitus Type 2, MRSA Other Surgeries: Yes: Cancer Surgery, Colonoscopy, Other Amputation: No Fractures: No - *Social History Educational Level: Attended Grade School Smoking Status: Current every day smoker Tobacco Type: cigarettes # Packs/Day (cigarettes): 1 Alcohol Intake: never Alcohol Intake Frequency:: other Substance Use Type: denies use Occupational Status: retired Housing: apartment Household Members: none - Psychiatric History Expresses thoughts of harming self/others: None Suicide Plan Description: No Plan Pschychiatric History:: Reports:: Anxiety *Family Hx:: Cancer Review of Systems - Review of Systems Review of systems:: pertinent systems reviewed and negative unless documented below - Constitutional Denies fever(s) - Eyes Denies change in vision - ENT Denies sore throat - *Cardiovascular Reports chest pain, Reports shortness of breath with activity, Reports fast heart rate - *Respiratory Reports cough, Denies coughing up blood - *Gastrointestinal Denies abdominal pain - *Musculoskeletal Denies joint pain - Integumentary/Breasts Denies rash - *Neurologic Denies seizure-like activity - Psychiatric Denies anxiety Exam Vital signs and Labs for Last 24 Hours: Temp Pulse Resp BP Pulse Ox 97.9 F 93 H 28 H 107/41 L 92 L 09/04/18 08:00 09/04/18 13:16 09/04/18 08:00 09/04/18 08:00 09/04/18 09:30 Laboratory Results - last 24 hr 09/04/18 06:32: WBC 8.2, RBC 3.87 L, Hgb 11.0 L D, Hct 34.6 L, MCV 89.5, MCH 28.5, MCHC 31.8, RDW 16.3, Plt Count 199, MPV 7.5, Neut % (Auto) 92.2 H, Lymph % (Auto) 5.1 L, [place] % (Auto) 2.6, Eos % (Auto) 0.1, Baso % (Auto) 0.0 L, Neut # (Auto) 7.5, Lymph # (Auto) 0.4 L, [place] # (Auto) 0.2, Eos # (Auto) 0.0, Baso # (Auto) 0.0, Total Counted 100, Neutrophils % (Manual) 92 H, Band Neutrophils % 6.0, Lymphocytes % (Manual) 2 L, Platelet Estimate Normal, Polychromasia 2+, Hypochromasia 1+, Rouleaux 1+ 09/04/18 06:32: Sodium 143, Potassium 3.5, Chloride 108 H, Carbon Dioxide 30, Anion Gap 8.5, BUN 9, Creatinine 0.48 L D, Estimated Creat Clear 49, Estimated GFR 167, Est GFR ( Amer) 202 D, Glucose 153 H, Calcium 8.1 L, Magnesium 1.7 I & O for Last 24 hours: Intake & Output 09/02/18 09/03/18 09/04/18 09/05/18 11:59 11:59 11:59 11:59 Intake Total 2040 / 2040 240 / 240 Output Total 1400 / 1400 Balance 640 / 640 240 / 240 Weight 132 lb 5 oz - Constitutional no acute distress, thin, cooperative - *Routine HEENT Exam Head: Present: normocephalic Eye: Present: EOMI, PERRL ENT: Present: mucous membranes dry - *Routine Neck Exam Present: supple - *Routine Respiratory Exam Present: decreased breath sounds, prolonged expiratory phase, rhonchi. Absent: respiratory distress - *Routine Cardiovascular Exam Present: RRR, murmur, S4 - *Routine Abdominal Exam Present: soft - *Routine Extremities Exam Absent: pulses intact - *Routine Skin Exam Present: intact - *Routine Neurological Exam Present: alert, oriented X3, CN II-XII intact - Routine Psychiatric Exam Present: normal affect Hospital Course Hospital Course: pt did well with pul tratment and iv steroids and at baseline -pt with stable labs and will be followed as op Results Labs on day of discharge: Labs from last 24 hours 09/04/18 09/04/18 06:32 06:32 WBC 8.2 RBC 3.87 L Hgb 11.0 L D Hct 34.6 L MCV 89.5 MCH 28.5 MCHC 31.8 RDW 16.3 Plt Count 199 MPV 7.5 Neut % (Auto) 92.2 H Lymph % (Auto) 5.1 L [place] % (Auto) 2.6 Eos % (Auto) 0.1 Baso % (Auto) 0.0 L Neut # (Auto) 7.5 Lymph # (Auto) 0.4 L [place] # (Auto) 0.2 Eos # (Auto) 0.0 Baso # (Auto) 0.0 Total Counted 100 Neutrophils % (Manual) 92 H Band Neutrophils % 6.0 Lymphocytes % (Manual) 2 L Platelet Estimate Normal Polychromasia 2+ Hypochromasia 1+ Rouleaux 1+ Sodium 143 Potassium 3.5 Chloride 108 H Carbon Dioxide 30 Anion Gap 8.5 BUN 9 Creatinine 0.48 L D Estimated Creat Clear 49 Estimated GFR 167 Est GFR ( Amer) 202 D Glucose 153 H Calcium 8.1 L Magnesium 1.7 DS: Diagnosis - Discharge Diagnosis (1) Liver metastasis Status: Acute (2) Lung cancer Status: Acute (3) Tobacco use disorder Status: Acute (4) Acute exacerbation of chronic obstructive airways disease Status: Acute (5) Low body mass index (BMI) Status: Acute Discharge Medications - Medications for Discharge Home Medication List at Discharge: New Roflumilast [Daliresp] 500 mcg PO DAILY Continue glycopyrrolate 9 mcg-formoterol 4.8 mcg HFA aerosol inhaler 2 puff INHALATION BID gabapentin 400 mg capsule 400 mg PO TID 30 Days #90 cap ipratropium-albuterol 0.5 mg-3 mg(2.5 mg base)/3 mL nebulization soln 3 ml INHALATION TID #90 ml omeprazole magnesium 20 mg tablet,delayed release 20 mg PO DAILY #30 tab amlodipine 5 mg tablet 5 mg PO DAILY #90 tab atorvastatin 10 mg tablet 10 mg PO HS #90 tab ondansetron HCl 8 mg tablet 8 mg PO NEEDED PRN #20 tab PRN Reason: Nausea metoprolol tartrate 50 mg tablet 50 mg PO BID #60 tab lorazepam 0.5 mg tablet 0.5 mg PO BID PRN #28 tab PRN Reason: anxiety 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
== END 2018-09-04 15:15 | disposition home or self-care (01) ==
LOC: ER 12:12 → 2ND 12:12
PROVIDERS: ADMIT Emergency Medicine; ATTEND Emergency Medicine
CPT/HCPCS: 36415; 71010; 71045; 80048; 80053; 83735; 83880; 84484; 85007; 85025; 87205; 94640; 94761; 96365; 96375; 99284; G0378

== ENCOUNTER 2018-09-19 14:09 | Inpatient (IN) ==
--- NOTE | 2018-09-19 14:25 | Emergency Department Note ---
ED Disposition Clinical Impression: Abdominal pain, COPD with exacerbation, Pneumonia Disposition: Still a Patient Condition on Discharge: Good - Critical Care Critical Care Time: No Attestation: On 09/19/18, the high probability of a clinically significant, sudden or life threatening deterioration of the following system(s) required my full and direct attention, intervention and personal management. The time I documented below is in addition to time spent performing reported procedures but includes the following listed in this critical care notation. Medical Decision Making - Medical Records MR Comment: cxr per my read shows chronic mass, scarring, and new lll infiltrate. 441 plan admit copd pnuekimberlyia - Gabo Inquiry Pt receiving controlled substance: No Vital Signs: 09/19/18 14:16 09/19/18 15:10 09/19/18 15:21 Temperature 98.1 F Temperature Source Oral Pulse Rate 106 H Pulse Rate [Left Radial] 108 H 107 H Respiratory Rate 20 20 Blood Pressure Blood Pressure [Right Arm] 130/73 149/77 H Blood Pressure Mean [Right Arm] 92 101 Blood Pressure Source Blood Pressure Source [Right Arm] Automatic Cuff Automatic Cuff Blood Pressure Position Blood Pressure Position [Right Arm] Sitting Sitting 02 Sat by Pulse Oximetry 98 97 Oxygen Delivery Method Nasal Cannula Nasal Cannula Oxygen Flow Rate (LPM) 2 2 09/19/18 15:30 09/19/18 16:00 09/19/18 16:30 Temperature Temperature Source Pulse Rate Pulse Rate [Left Radial] 110 H 111 H 114 H Respiratory Rate 20 22 24 Blood Pressure Blood Pressure [Right Arm] 152/62 H 133/71 139/81 Blood Pressure Mean [Right Arm] 92 91 100 Blood Pressure Source Blood Pressure Source [Right Arm] Automatic Cuff Automatic Cuff Automatic Cuff Blood Pressure Position Blood Pressure Position [Right Arm] Sitting Sitting Sitting 02 Sat by Pulse Oximetry 95 94 L 95 Oxygen Delivery Method Room Air Nasal Cannula Nasal Cannula Oxygen Flow Rate (LPM) 2 2 09/19/18 16:50 09/19/18 17:00 09/19/18 17:49 Temperature 98 F Temperature Source Oral Pulse Rate 115 H 120 H Pulse Rate [Left Radial] 113 H Respiratory Rate 20 24 Blood Pressure 101/50 L Blood Pressure [Right Arm] 122/77 Blood Pressure Mean [Right Arm] 92 Blood Pressure Source Automatic Cuff Blood Pressure Source [Right Arm] Automatic Cuff Blood Pressure Position Sitting Blood Pressure Position [Right Arm] Sitting 02 Sat by Pulse Oximetry 92 L Oxygen Delivery Method Nasal Cannula Nasal Cannula Oxygen Flow Rate (LPM) 2 2 - Lab Data Lab Results 09/19/18 14:05: WBC 8.1, RBC 4.50 L, Hgb 12.7 L, Hct 40.1 L, MCV 89.2, MCH 28.2, MCHC 31.6 L, RDW 15.9, Plt Count 365, MPV 7.6, Neut % (Auto) 72.3, Lymph % (Auto) 14.4, [place] % (Auto) 11.8 H, Eos % (Auto) 1.1, Baso % (Auto) 0.4, Neut # (Auto) 5.9, Lymph # (Auto) 1.2, [place] # (Auto) 1.0, Eos # (Auto) 0.1, Baso # (Auto) 0.0 09/19/18 14:05: PT 10.1, INR 0.98, APTT 31.7 09/19/18 14:05: Sodium 140, Potassium 3.1 L, Chloride 103, Carbon Dioxide 29, Anion Gap 11.1, BUN 9, Creatinine 0.72, Estimated Creat Clear 46, Estimated GFR 105, Est GFR ( Amer) 127, Glucose 146 H, Calcium 9.3, Total Bilirubin 0.4, AST 24, ALT 30, Alkaline Phosphatase 164 H, Troponin I < 0.02, Total Protein 7.1, Albumin 2.7 L, Globulin 4.4 H, Albumin/Globulin Ratio 0.6 L, Lipase 47 L 09/19/18 14:30: Lactate 1.8 09/19/18 14:30: Influenza Type A Ag Negative, Influenza Type B Ag Negative 09/19/18 15:10: Urine Color Yellow, Urine Appearance Clear, Urine pH 6.5, Ur Specific [place] 1.025, Urine Protein Trace, Urine Glucose (UA) Negative, Urine Ketones Negative, Urine Blood Negative, Urine Nitrate Negative, Urine Bilirubin Negative, Urine Urobilinogen 1.0, Ur Leukocyte Esterase Negative, Urine RBC None, Urine WBC 5-10, Ur Squamous Epith Cells 3-5, Urine Bacteria 1+, Urine Mucus Trace Result diagrams: 09/19/18 14:05 09/19/18 14:05 Orders (Tests/Meds): ED MEDICATIONS Generic Name Dose Route Start Last Admin Trade Name Freq PRN Reason Stop Dose Admin Hydrocodone Bitart/Acetaminophen 1 tab 09/19/18 17:51 [place] 5/325mg Tablet PO 10/19/18 17:50 Q6HP PRN Breakthru Moderate Pain Amlodipine Besylate 5 mg 09/20/18 09:00 Norvasc 5mg Tablet PO 10/20/18 08:59 DAILY [facility] Atorvastatin Calcium 10 mg 09/19/18 21:00 Lipitor 10mg Tablet PO 10/19/18 20:59 HS [facility] Gabapentin 400 mg 09/19/18 21:00 Neurontin 400mg Capsule PO 10/19/18 20:59 TID VIRA Cefepime HCl 2 gm/ Sodium 100 mls @ 200 mls/hr 09/19/18 17:51 09/19/18 19:05 Chloride IV 10/03/18 17:50 200 mls/hr Q8H VRIA Administration Protocol Lorazepam 0.5 mg 09/19/18 17:51 Ativan 0.5mg Tablet PO 10/19/18 17:50 BID PRN anxiety Metoprolol Tartrate 50 mg 09/19/18 21:00 Lopressor 50mg Tablet PO 10/19/18 20:59 BID [facility] Non-Formulary Medication 2 puff 09/19/18 21:00 Glycopyrrolate/Formoterol Fum [Bevespi Aerosphere Inhaler] INHALATION 10/19/18 20:59 BID [facility] Potassium Chloride 10 meq 09/20/18 09:00 Klor-Con 10meq Tablet PO 10/20/18 08:59 DAILY [facility] Tamsulosin HCl 0.4 mg 09/19/18 21:00 Flomax 0.4mg Capsule PO 10/19/18 20:59 HS [facility] Discontinued Medications Generic Name Dose Route Start Last Admin Trade Name Freq PRN Reason Stop Dose Admin Acetaminophen 650 mg 09/19/18 16:59 Acetaminophen 325mg Tab PO 10/19/18 16:58 Q4HP PRN As Needed for Fever or Pain Albuterol/Ipratropium 3 ml 09/19/18 15:20 09/19/18 15:21 Duoneb 3ml Neb 09/19/18 15:21 3 ml ONCE ONE Administration Albuterol/Ipratropium 6 ml 09/19/18 16:24 09/19/18 16:34 Duoneb 3ml Neb 09/19/18 16:25 3 ml ONCE ONE Administration Albuterol/Ipratropium 3 ml 09/19/18 17:02 Duoneb 3ml Neb 10/19/18 17:01 Q4HP PRN Shortness Of Breath Or Wheezing Albuterol/Ipratropium 3 ml 09/19/18 17:22 09/19/18 16:35 Duoneb 3ml Neb 09/19/18 17:23 3 ml ONCE ONE Administration Sodium Chloride 1,000 mls @ 999 mls/hr 09/19/18 14:30 09/19/18 14:36 Sod Chlor 0.9% 1000ml Bag IV 09/19/18 15:30 999 mls/hr .Q1H1M VIRA Administration Levofloxacin/Dextrose 500 mg in 100 mls @ 100 mls/hr 09/19/18 15:52 09/19/18 16:49 Levaquin 500mg/100ml Premix IV 09/19/18 16:51 Not Given PREOP ONE Protocol Levofloxacin/Dextrose 750 mg in 150 mls @ 100 mls/hr 09/19/18 17:00 09/19/18 16:52 Levofloxacin 750mg/150ml Premix IV 10/03/18 16:59 100 mls/hr Q24H VIRA Administration Protocol Lactated Ringer's 1,000 mls @ 50 mls/hr 09/19/18 17:00 Lactated Ringer's 1000 Ml Bag IV 10/19/18 16:59 .Q20H VIRA Lorazepam 0.5 mg 09/19/18 16:52 09/19/18 17:02 Ativan 2mg/Ml Vial IV 09/19/18 16:53 0.5 mg ONCE ONE Administration Lorazepam 0.5 mg 09/19/18 17:18 09/19/18 17:35 Ativan 2mg/Ml Vial IV 09/19/18 17:19 0.5 mg ONCE ONE Administration Methylprednisolone Sodium Succinate 125 mg 09/19/18 16:24 09/19/18 17:01 Solu-Medrol 125mg/2ml Vial IV 09/19/18 16:25 125 mg ONCE ONE Administration Methylprednisolone Sodium Succinate 60 mg 09/19/18 17:15 Solu-Medrol 125mg/2ml Vial IV 10/19/18 17:14 Q8H VIRA Morphine Sulfate 4 mg 09/19/18 14:20 09/19/18 14:36 Morphine 4mg/Ml Syringe IV 09/19/18 14:21 4 mg ONCE ONE Administration Nicotine 21 mg 09/19/18 16:59 Nicoderm 21mg/24hr Patch TD 10/19/18 16:58 DAILYP PRN Nicotine Cravings Ondansetron HCl 4 mg 09/19/18 14:20 09/19/18 14:36 Zofran 4mg/2ml Vial IV 09/19/18 14:21 4 mg ONCE ONE Administration Potassium Chloride 40 meq 09/19/18 15:13 09/19/18 16:27 Klor-Con 20meq Tablet PO 09/19/18 15:14 40 meq ONCE ONE Administration Sodium Chloride 2 ml 09/19/18 16:52 Saline Flush 10ml Syringe IV 10/19/18 16:51 NEEDED PRN to Dilute Lorazepam inj Sodium Chloride 2 ml 09/19/18 17:18 Saline Flush 10ml Syringe IV 10/19/18 17:17 NEEDED PRN to Dilute Lorazepam inj ORDERS Category Date Time Status Blood Culture Stat Micro 09/19/18 16:43 Received Urine Culture Stat Micro 09/19/18 15:10 Received - ECG Data Tracing #1 ER EKG read by myself shows sinus tachycardia rhythm rate of 107, normal axis, n o QT prolongation, nonspecific EKG General Adult HPI - General Chief complaint: Abdominal Pain Stated complaint: abd pain Time Seen by Provider: 09/19/18 14:23 Mode of Arrival: EMS Limitations: No Limitations Description of Symptoms (Recalled from ER Triage Doc. by RN): to ed per squad with c/o abd pain starting yesterday +nausea, +vomiting hx of lung and liver ca - History of Present Illness HPI narrative: Patient onset last night of abdominal pain crampy in nature moderate severity he states it does not radiate to the back he denies any headache or chest pain he denies any fevers or chills he has had some nausea and vomiting he denies any diarrhea. He states is a new type of pain for him. He does have some whole body ache. - Related Data Home Medications Medication Instructions Recorded Confirmed glycopyrrolate 9 mcg-formoterol 2 puff INHALATION BID 01/18/18 09/09/18 4.8 mcg HFA aerosol inhaler RX: Famotidine [Acid Buckle Strap Puncher] 20 mg PO BID 03/29/18 09/09/18 RX: Tamsulosin HCl [Flomax 0.4mg 0.4 mg PO HS 06/03/18 09/09/18 capsule] RX: Albuterol Sulfate [Albuterol 2.5 mg IH QID 08/17/18 09/09/18 0.083% 2.5mg/3mL neb] Previous Rx's Medication Instructions Recorded ipratropium-albuterol 0.5 mg-3 3 ml INHALATION TID #90 ml 06/16/18 mg(2.5 mg base)/3 mL nebulization soln amlodipine 5 mg tablet 5 mg PO DAILY #90 tab 07/07/18 atorvastatin 10 mg tablet 10 mg PO HS #90 tab 07/07/18 omeprazole magnesium 20 mg 20 mg PO DAILY #30 tab 07/07/18 tablet,delayed release metoprolol tartrate 50 mg tablet 50 mg PO BID #60 tab 08/04/18 ondansetron HCl 8 mg tablet 8 mg PO NEEDED PRN #20 tab 08/08/18 RX: Buspirone HCl [Buspar 5mg 7.5 mg PO BID tab 08/22/18 tablet] RX: Potassium Chloride [Klor-Con 10 meq PO DAILY tablet.er 08/22/18 10mEq tab] Roflumilast [Daliresp] 500 mcg PO DAILY 09/04/18 ondansetron HCl 4 mg tablet 4 mg PO Q4H PRN 5 Days #30 tab 09/07/18 gabapentin 400 mg capsule 400 mg PO TID 30 Days #90 cap 09/09/18 hydrocodone 5 mg-acetaminophen 325 1 tab PO Q6HP PRN #180 tab 09/09/18 mg tablet lorazepam 0.5 mg tablet 0.5 mg PO BID PRN #60 tab 09/09/18 Allergies Allergy/AdvReac Type Severity Reaction Status Date / Time tramadol [TRAMADOL] Allergy Unknown HIVES/ITCHI Verified 09/09/18 11:17 [facility] History I have reviewed the patient's past medical history: Yes Medical History: Reports:: Anxiety, Cancer, Chronic Obstructive Pulmonary Disease (COPD), Gastroesophageal Reflux Disease(GERD), Hyperlipidemia, Hypertension Denies:: Diabetes Mellitus Type 1, Diabetes Mellitus Type 2, MRSA Comment: Cancer Other Surgeries: Yes: Cancer Surgery, Colonoscopy, Other Amputation: No Fractures: No Comment: Gtube, Trac - Social History Smoking Status: Current every day smoker Tobacco Type: cigarettes # Packs/Day (cigarettes): 1 Alcohol Intake: never Alcohol Intake Frequency:: other Substance Use Type: denies use Occupational Status: retired Housing: apartment Household Members: none - Psychiatric History Expresses thoughts of harming self/others: None Suicide Plan Description: No Plan Pschychiatric History:: Reports:: Anxiety Family Hx:: Cancer ROS Obtained: Yes All systems reviewed & no additional complaints Physical Exam General Appearance: Nontoxic Head: Normocephalic, without obvious abnormality, atraumatic. Eyes: conjunctiva/corneas clear ENT: Mucous membranes moist. Neck: No jugular venous distention. Cardiac: regular rate and rhythm Lungs: wheezes rhonchi to auscultation bilaterally Abdomen: LLQ tender < diffuse tenderness, Nondistended, positive bowel sounds, no rebound : No CVA tenderness Extremities: no edema Musculoskeletal: No chest wall tenderness Skin: No rashes or lesions to exposed skin. Neurologic: Alert. No gross focal deficits Psychiatric: Normal affect - General General appearance: alert - Respiratory Respiratory exam: Present: normal lung sounds bilaterally - Cardiovascular Cardiovascular exam: Present: regular rate - Neurological Exam Neurological exam: Present: alert
[2018-09-19 14:29] LABS: Basophils % 0.4 % (0.1-2.0); Eosinophils # 0.1 K/mm3 (0.0-0.4); Eosinophils % 1.1 % (0.1-12.0); Hematocrit 40.1 % (42.0-52.0); Hemoglobin 12.7 g/dL (14.1-18.0); Lymphocytes # 1.2 K/mm3 (0.7-4.5); Lymphocytes % 14.4 K/mm3 (10-50); Mean Corpuscular HGB Conc 31.6 g/dL (31.8-35.4); Mean Corpuscular Hemoglobin 28.2 pg (27.0-31.2); Mean Corpuscular Volume 89.2 fl (80-94); Mean Platelet Volume 7.6 fl (7.4-10.4); Monocytes % 11.8 % (1.7-9.3); Neutrophils # 5.9 K/mm3 (1.8-7.8); Neutrophils % 72.3 % (37.0-80.0); Platelet Count 365 K/mm3 (142-424); Red Cell Distribution Width 15.9 % (11.5-17.5); White Blood Count 8.1 K/mm3 (4.8-10.8)
[2018-09-19 14:31] LABS: Activated Partial Thrombo Time 31.7 seconds (23.6-34.0); INR 0.98 (0.9-1.1); Prothrombin Time 10.1 seconds (9.4-11.8)
[2018-09-19 14:42] LABS: Alanine Aminotransferase 30 U/L (12-78); Albumin Level 2.7 gm/dL (3.4-5.0); Albumin/Globulin Ratio 0.6 (1.1-1.8); Alkaline Phosphatase 164 U/L (46-116); Anion Gap 11.1 mEq/L (5-15); Aspartate Amino Transferase 24 U/L (15-37); Bilirubin,Total 0.4 mg/dL (0.2-1.0); Blood Urea Nitrogen 9 mg/dL (7-18); Calcium 9.3 mg/dL (8.5-10.1); Carbon Dioxide 29 mmol/L (21.0-32.0); Chloride 103 mmol/L (98-107); Globulin 4.4 gm/dl (1.3-3.2); Glucose 146 mg/dL (74-106); Lipase 47 u/L (73-393); Potassium 3.1 mmoL/L (3.5-5.1); Sodium 140 mmol/L (136-145); Total Protein,Serum 7.1 gm/dL (6.4-8.2)
[2018-09-19 15:13] LABS: Microscopic, Urine URINE MICROSCOPIC (MICROSCOPIC)
[2018-09-19 15:26] LABS: Appearance,Urine CLEAR (Clear); Bilirubin,Urine Negative (Negative); Blood, Urine Negative (Negative); Color,Urine YELLOW (Yellow); Glucose,Urine (UA) Negative (Negative); Ketones,Urine Negative (Negative); Leukocyte Esterase,Urine Negative (Negative); PH,Urine 6.5 (5.0-8.5); Protein,Urine TRACE (Negative); Specific Gravity, Urine 1.025 (1.005-1.030)
[2018-09-19 15:35] LABS: Bacteria,Urine 1+ /lpf; Mucus,Urine Trace /lpf
--- NOTE | 2018-09-19 17:12 | History & Physical Report ---
*Admission Date: 09/19/18 *Chief complaint: "Blind staggers" *History of present illness: 83-year-old male with metastatic lung cancer came to the emergency department for "blind staggers". He later clarifies that his vision was blurry and it was causing him to stagger around. He has known lung cancer with metastases to the liver and is scheduled to see local oncologist, Dr. Khalil, on September 21. Patient continues to smoke cigarettes but today when interviewed states his breathing is about the same as always. He denied any significant change in his shortness of breath. He has a cough that is productive of white sputum. He denies fevers or chills. Workup in the emergency department revealed persi stence of a left lower lobe infiltrate. The "left lower lobe infiltrate" has been present for the last month. CT scan of the chest performed on August 18 revealed this infiltrate. Patient has been on antibiotics as well as steroids. Further review of his chart indicates previously seen left lower lobe pneumonias likely on top of scarring in the left lung base going back to the spring of this year. Patient also complained of abdominal pain as a cause for his visit to the ER. 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 Patient has been admitted for observation. This will be his third admission to the hospital within the last [address] [facility] History I have reviewed the patient's past medical history: Yes Medical History: Reports:: Anxiety, Cancer, Chronic Obstructive Pulmonary Disease (COPD), Gastroesophageal Reflux Disease(GERD), Hyperlipidemia, Hypertension Denies:: Diabetes Mellitus Type 1, Diabetes Mellitus Type 2, MRSA Comment: Celiac artery stenosis Other Surgeries: Yes: Cancer Surgery, Colonoscopy, Other Amputation: No Fractures: No - *Social History Smoking Status: Current every day smoker Tobacco Type: cigarettes # Packs/Day (cigarettes): 1 Alcohol Intake: never Alcohol Intake Frequency:: other Substance Use Type: denies use Occupational Status: retired Housing: apartment Household Members: none - Psychiatric History Expresses thoughts of harming self/others: None Suicide Plan Description: No Plan Pschychiatric History:: Reports:: Anxiety *Family Hx:: Cancer Review of Systems - Review of Systems Review of systems:: pertinent systems reviewed and negative unless documented below - Constitutional Reports anorexia, Denies body ache(s), Denies chills - Eyes Reports blurry vision - *Cardiovascular Reports shortness of breath, Reports shortness of breath with activity, Denies chest pain, Denies chest pain at rest, Denies chest pain with activity, Denies excessive sweating - *Respiratory Reports chest congestion, Reports cough, Reports shortness of breath, Reports shortness of breath with activity, Denies change in phlegm color, Denies excessive phlegm production, Denies coughing up blood - *Gastrointestinal Reports abdominal pain - *Genitourinary Denies difficulty urinating - *Musculoskeletal Denies joint pain Meds Home Medications Medication Instructions Recorded Confirmed Type glycopyrrolate 9 mcg-formoterol 2 puff INHALATION BID 01/18/18 09/09/18 History 4.8 mcg HFA aerosol inhaler Famotidine [Acid Gsa Coordinator] 20 mg PO BID 03/29/18 09/09/18 History Tamsulosin HCl [Flomax 0.4mg 0.4 mg PO HS 06/03/18 09/09/18 History capsule] Albuterol Sulfate [Albuterol 2.5 mg IH QID 08/17/18 09/09/18 History 0.083% 2.5mg/3mL neb] Allergies Allergy/AdvReac Type Severity Reaction Status Date / Time tramadol [TRAMADOL] Allergy Unknown HIVES/ITCHI Verified 09/09/18 11:17 NG Exam Vital signs and Labs for Last 24 Hours: Temp Pulse Resp BP Pulse Ox 98.1 F 115 H 24 139/81 95 09/19/18 14:16 09/19/18 16:50 09/19/18 16:30 09/19/18 16:30 09/19/18 16:30 Laboratory Results - last 24 hr 09/19/18 14:05: WBC 8.1, RBC 4.50 L, Hgb 12.7 L, Hct 40.1 L, MCV 89.2, MCH 28.2, MCHC 31.6 L, RDW 15.9, Plt Count 365, MPV 7.6, Neut % (Auto) 72.3, Lymph % (Auto) 14.4, [place] % (Auto) 11.8 H, Eos % (Auto) 1.1, Baso % (Auto) 0.4, Neut # (Auto) 5.9, Lymph # (Auto) 1.2, [place] # (Auto) 1.0, Eos # (Auto) 0.1, Baso # (Auto) 0.0 09/19/18 14:05: PT 10.1, INR 0.98, APTT 31.7 09/19/18 14:05: Sodium 140, Potassium 3.1 L, Chloride 103, Carbon Dioxide 29, Anion Gap 11.1, BUN 9, Creatinine 0.72, Estimated Creat Clear 46, Estimated GFR 105, Est GFR ( Amer) 127, Glucose 146 H, Calcium 9.3, Total Bilirubin 0.4, AST 24, ALT 30, Alkaline Phosphatase 164 H, Troponin I < 0.02, Total Protein 7.1, Albumin 2.7 L, Globulin 4.4 H, Albumin/Globulin Ratio 0.6 L, Lipase 47 L 09/19/18 14:30: Lactate 1.8 09/19/18 14:30: Influenza Type A Ag Negative, Influenza Type B Ag Negative 09/19/18 15:10: Urine Color Yellow, Urine Appearance Clear, Urine pH 6.5, Ur Specific [place] 1.025, Urine Protein Trace, Urine Glucose (UA) Negative, Urine Ketones Negative, Urine Blood Negative, Urine Nitrate Negative, Urine Bilirubin Negative, Urine Urobilinogen 1.0, Ur Leukocyte Esterase Negative, Urine RBC None, Urine WBC 5-10, Ur Squamous Epith Cells 3-5, Urine Bacteria 1+, Urine Mucus Trace I & O for Last 24 hours: Intake & Output 09/17/18 09/18/18 09/19/18 09/20/18 11:59 11:59 11:59 11:59 Weight 124 lb Narrative: Elderly -[place] male in no distress. He is wearing a nasal cannula. Ears are externally normal. Oropharynx is dry. Neck is without lymphadenopathy. Lungs have expiratory wheezes throughout more audible on the right than left with diminished breath sounds in the left lung from the left midlung to the base. Heart has a regular rate and rhythm. Abdomen is thin and soft. Extremities are warm to the touch and he has active range of motion in his arms and legs. Assessment and Plan (1) Pneumonia Current visit: Yes Status: Acute Category: Medical Code(s): J18.9 - Pneumonia, unspecified organism (2) Metastatic lung cancer (metastasis from lung to other site) Current visit: Yes Status: Acute Category: Medical Code(s): C34.90 - Malignant neoplasm of unspecified part of unspecified bronchus or lung (3) Acute exacerbation of chronic obstructive airways disease Current visit: No Status: Acute Category: Medical Code(s): J44.1 - Chronic obstructive pulmonary disease with (acute) exacerbation - Assessment and plan all Dx Assessment and Plan for all problems:: 1. Patient will be admitted and placed on Levaquin and cefepime to cover Pseudomonas. Solu-Medrol will be given for mild COPD exacerbation. Duo nebs will be ordered. 2. Home meds will be ordered 3. Anticipate oncology consult as it is likely patient will be here longer than 24 hours. He is scheduled to see Dr. Khalil in the outpatient clinic on Wednesday
[2018-09-19 17:33] LABS: ABG Base Excess 2.2 mmol/L (-2.4-2.3); ABG HCO3 26.9 mmhg (22.0-26.0); ABG Oxygen Saturation 89 % (90-100); ABG PCO2 43.5 mmhg (35.0-45.0); ABG PH 7.41 mmol/L (7.35-7.45); ABG PO2 58.1 mmhg (80-100); ABG TCO2 28.2 mmhg (23-27)
[2018-09-19 17:34] LABS: Allen's Test Acceptable; Oxygen 28% NC %
--- NOTE | 2018-09-20 06:47 | Progress Note ---
Internal Medicine - PN: Subj *Date: 09/20/18 *Time: 06:46 Interval history: Patient tells me he feels better this morning. He was able to get some rest overnight. Exam Vital signs and Labs for Last 24 Hours: Temp Pulse Resp BP Pulse Ox 97.7 F 98 H 18 118/66 96 09/20/18 04:38 09/20/18 04:38 09/20/18 04:38 09/20/18 04:38 09/20/18 04:38 Laboratory Results - last 24 hr 09/19/18 14:05: WBC 8.1, RBC 4.50 L, Hgb 12.7 L, Hct 40.1 L, MCV 89.2, MCH 28.2, MCHC 31.6 L, RDW 15.9, Plt Count 365, MPV 7.6, Neut % (Auto) 72.3, Lymph % (Auto) 14.4, [place] % (Auto) 11.8 H, Eos % (Auto) 1.1, Baso % (Auto) 0.4, Neut # (Auto) 5.9, Lymph # (Auto) 1.2, [place] # (Auto) 1.0, Eos # (Auto) 0.1, Baso # (Auto) 0.0 09/19/18 14:05: PT 10.1, INR 0.98, APTT 31.7 09/19/18 14:05: Sodium 140, Potassium 3.1 L, Chloride 103, Carbon Dioxide 29, Anion Gap 11.1, BUN 9, Creatinine 0.72, Estimated Creat Clear 46, Estimated GFR 105, Est GFR ( Amer) 127, Glucose 146 H, Calcium 9.3, Total Bilirubin 0.4, AST 24, ALT 30, Alkaline Phosphatase 164 H, Troponin I < 0.02, Total Protein 7.1, Albumin 2.7 L, Globulin 4.4 H, Albumin/Globulin Ratio 0.6 L, Lipase 47 L 09/19/18 14:30: Lactate 1.8 09/19/18 14:30: Influenza Type A Ag Negative, Influenza Type B Ag Negative 09/19/18 15:10: Urine Color Yellow, Urine Appearance Clear, Urine pH 6.5, Ur Specific [place] 1.025, Urine Protein Trace, Urine Glucose (UA) Negative, Urine Ketones Negative, Urine Blood Negative, Urine Nitrate Negative, Urine Bilirubin Negative, Urine Urobilinogen 1.0, Ur Leukocyte Esterase Negative, Urine RBC None, Urine WBC 5-10, Ur Squamous Epith Cells 3-5, Urine Bacteria 1+, Urine Mucus Trace 09/19/18 17:30: Specimen Source Right radial, O2 % 28% nc, ABG pH 7.41, ABG pCO2 43.5, ABG pO2 58.1 L, ABG HCO3 26.9 H, ABG Total CO2 28.2 H, ABG O2 Saturation 89 L, ABG Base Excess 2.2, Enrique Test Acceptable I & O for Last 24 hours: Intake & Output 09/17/18 09/18/18 09/19/18 09/20/18 11:59 11:59 11:59 11:59 Intake Total 590 / 590 Output Total 300 / 300 Balance 290 / 290 Weight 124 lb Microbiology Reports for the Last 24 Hours: Microbiology 09/20/18 00:15 Sputum - Expectorated Sputum Gram Stain - Final Narrative: Patient is resting comfortably. He is performing pursed lipped breathing. Mild increase in his respiratory rate. Lungs reveal slight improvement in aeration with persistent wheezing more audible on the right than left. Breath sounds diminished in the left midlung to the left base. Assessment and Plan (1) Pneumonia Current visit: Yes Status: Acute Category: Medical Code(s): J18.9 - Pneumonia, unspecified organism (2) Metastatic lung cancer (metastasis from lung to other site) Current visit: Yes Status: Acute Category: Medical Code(s): C34.90 - Malignant neoplasm of unspecified part of unspecified bronchus or lung (3) Acute exacerbation of chronic obstructive airways disease Current visit: No Status: Acute Category: Medical Code(s): J44.1 - Chronic obstructive pulmonary disease with (acute) exacerbation - Assessment and plan all Dx Assessment and Plan for all problems:: 1. Await sputum and blood cultures 2. Oncology consult tomorrow. 3. Continue broad-spectrum antibiotics and steroids
--- NOTE | 2018-09-20 07:43 | Pharmacy Consult Notes ---
[facility] Pharmacy VTE Monitoring - Patient Demographics Admission date: 09/19/18 Report Date: 09/20/18 Time: 07:43 Allergies/Adverse Reactions: Patient Allergies tramadol [TRAMADOL] Allergy (Unknown, Verified 09/09/18 11:17) HIVES/ITCHING Height: 1.78 m Weight: 56.245 kg Patient Problems: Current Active Problems COPD with exacerbation (Acute) Pneumonia (Acute) Abdominal pain (Acute) Metastatic lung cancer (metastasis from lung to other site) (Acute) - VTE Risk Labs: VTE Related Lab Results Hgb 12.7 g/dL (14.1-18.0) L 09/19/18 14:05 Hct 40.1 % (42.0-52.0) L 09/19/18 14:05 Plt Count 365 K/mm3 (142-424) 09/19/18 14:05 PT 10.1 seconds (9.4-11.8) 09/19/18 14:05 INR 0.98 (0.9-1.1) 09/19/18 14:05 APTT 31.7 seconds (23.6-34.0) 09/19/18 14:05 BUN 9 mg/dL (7-18) 09/19/18 14:05 Creatinine 0.72 mg/dL (0.70-1.30) 09/19/18 14:05 Estimated Creat Clear 46 mL/min (0-300) 09/19/18 14:05 VTE Score: 4 VTE Risk Level: Low Risk - Prophylaxis VTE Prophylaxis Ordered?: Yes Types of VTE Prophylaxis: TEDS Knee High Location of Applied Device: Bilateral Lower Extremeties - VTE Diagnosis Confirmed Treatment or plan recommended: Continue Current Treatment
--- NOTE | 2018-09-21 07:12 | Progress Note ---
Internal Medicine - PN: Subj *Date: 09/21/18 *Time: 07:10 Interval history: Patient complains of feeling more short of breath than he did yesterday. Nursing staff reports patient has been very anxious as of the night. He did receive his as needed lorazepam which helped briefly. Cough remains mostly nonproductive at this point Exam Vital signs and Labs for Last 24 Hours: Temp Pulse Resp BP Pulse Ox 97.9 F 113 H 16 127/52 L 93 L 09/21/18 04:00 09/21/18 06:29 09/21/18 04:00 09/21/18 04:00 09/21/18 06:29 I & O for Last 24 hours: Intake & Output 09/18/18 09/19/18 09/20/18 09/21/18 11:59 11:59 11:59 11:59 Intake Total 590 / 590 200 / 200 Output Total 500 / 500 800 / 800 Balance 90 / 90 -600 / -600 Weight 124 lb Microbiology Reports for the Last 24 Hours: Microbiology 09/20/18 00:15 Sputum - Expectorated Sputum Gram Stain - Final 09/20/18 00:15 Sputum - Expectorated Sputum Sputum Culture - Preliminary 09/19/18 15:10 Urine,Catheterized Urine Culture - Preliminary Escherichia coli Gram Positive Cocci Narrative: Overall respiratory rate seems the same as it has been the previous 2 days. Lung exam however has not changed since yesterday with diminished airflow bilaterally left worse than right. He continues to have expiratory wheezes. Assessment and Plan (1) Pneumonia Current visit: Yes Status: Acute Category: Medical Code(s): J18.9 - Pneumonia, unspecified organism (2) Metastatic lung cancer (metastasis from lung to other site) Current visit: Yes Status: Acute Category: Medical Code(s): C34.90 - Malignant neoplasm of unspecified part of unspecified bronchus or lung (3) Acute exacerbation of chronic obstructive airways disease Current visit: No Status: Acute Category: Medical Code(s): J44.1 - Chronic obstructive pulmonary disease with (acute) exacerbation - Assessment and plan all Dx Assessment and Plan for all problems:: Steroids were increased overnight by the on-call physician and we will continue them at their current rate. Continue antibiotics and await for sputum culture results. Patient has oncology consult today. This being the patient's third hospitalization in the last month with his suspected recurrence of cancer with metastases now and his seeming chronic respiratory failure palliation may be the best course of action for this patient
[2018-09-21 07:28] LABS: Basophils % 0.1 % (0.1-2.0); Eosinophils # 0.1 K/mm3 (0.0-0.4); Eosinophils % 1.1 % (0.1-12.0); Hemoglobin 12.6 g/dL (14.1-18.0); Lymphocytes # 0.4 K/mm3 (0.7-4.5); Lymphocytes % 4.7 K/mm3 (10-50); Mean Corpuscular HGB Conc 31.4 g/dL (31.8-35.4); Mean Corpuscular Hemoglobin 27.9 pg (27.0-31.2); Mean Platelet Volume 7.7 fl (7.4-10.4); Monocytes # 0.3 K/mm3 (0.1-1.0); Monocytes % 3.4 % (1.7-9.3); Neutrophils # 7.9 K/mm3 (1.8-7.8); Neutrophils % 90.8 % (37.0-80.0); Platelet Count 385 K/mm3 (142-424); Red Blood Count 4.49 M/mm3 (4.60-6.20); Red Cell Distribution Width 15.7 % (11.5-17.5); White Blood Count 8.7 K/mm3 (4.8-10.8)
[2018-09-21 07:53] LABS: Albumin Level 2.3 gm/dL (3.4-5.0); Anion Gap 7.8 mEq/L (5-15); Bilirubin,Direct 0.1 mg/dL (0.0-0.2); Bilirubin,Indirect 0.2 mg/dL (0.0-0.9); Bilirubin,Total 0.3 mg/dL (0.2-1.0); Calcium 8.9 mg/dL (8.5-10.1); Potassium 3.8 mmoL/L (3.5-5.1); Total Protein,Serum 6.3 gm/dL (6.4-8.2)
[2018-09-21 08:39] LABS: Lymphocytes % 8 % (10-50); Monocytes % 2 % (2-9); Neutrophils % 90 % (42-76); Total Cells Counted 100
[2018-09-21 08:42] LABS: Hypochromasia 1+
--- NOTE | 2018-09-22 07:07 | Progress Note ---
Internal Medicine - PN: Subj *Date: 09/22/18 *Time: 07:05 Interval history: Patient has no complaints this morning. He believes he is starting to feel better. His cough is still productive of yellow sputum. He denies shortness of breath with ambulation. Exam Vital signs and Labs for Last 24 Hours: Temp Pulse Resp BP Pulse Ox 97.5 F L 113 H 14 104/60 L 92 L 09/22/18 04:00 09/22/18 06:39 09/22/18 04:00 09/22/18 04:00 09/22/18 06:39 Laboratory Results - last 24 hr 09/21/18 07:20: WBC 8.7, RBC 4.49 L, Hgb 12.6 L, Hct 40.0 L, MCV 89.0, MCH 27.9, MCHC 31.4 L, RDW 15.7, Plt Count 385, MPV 7.7, Neut % (Auto) 90.8 H, Lymph % (Auto) 4.7 L, [place] % (Auto) 3.4, Eos % (Auto) 1.1, Baso % (Auto) 0.1, Neut # (Auto) 7.9 H, Lymph # (Auto) 0.4 L, [place] # (Auto) 0.3, Eos # (Auto) 0.1, Baso # (Auto) 0.0, Total Counted 100, Neutrophils % (Manual) 90 H, Lymphocytes % (Manual) 8 L, Monocytes % (Manual) 2, Platelet Estimate Normal, Hypochromasia 1+ 09/21/18 07:20: Sodium 138, Potassium 3.8 D, Chloride 102, Carbon Dioxide 32, Anion Gap 7.8, BUN 12 D, Creatinine 0.55 L D, Estimated Creat Clear 46, Estimated GFR 143, Est GFR ( Amer) 173 D, Glucose 165 H, Calcium 8.9, Total Bilirubin 0.3, Direct Bilirubin 0.1, Indirect Bilirubin 0.2, AST 24, ALT 28, Alkaline Phosphatase 150 H, Total Protein 6.3 L, Albumin 2.3 L I & O for Last 24 hours: Intake & Output 09/19/18 09/20/18 09/21/18 09/22/18 11:59 11:59 11:59 11:59 Intake Total 590 / 590 200 / 200 420 / 420 Output Total 500 / 500 950 / 950 725 / 725 Balance / -750 / -750 -305 / -305 Weight 124 lb 123 lb 15.984 oz Microbiology Reports for the Last 24 Hours: Microbiology 09/19/18 15:10 Urine,Catheterized Urine Culture - Preliminary Escherichia coli Staphylococcus haemolyticus 09/19/18 16:43 Blood Blood Culture - Preliminary NO GROWTH AFTER 48 HOURS 09/19/18 16:43 Blood Blood Culture - Preliminary NO GROWTH AFTER 48 HOURS 09/20/18 00:15 Sputum - Expectorated Sputum Gram Stain - Final 09/20/18 00:15 Sputum - Expectorated Sputum Sputum Culture - Preliminary Narrative: Patient looks more comfortable than yesterday. Lung exam reveals diminished breath sounds throughout but much more severe at the left base. Wheezing that was present yesterday has resolved Assessment and Plan (1) Pneumonia Current visit: Yes Status: Acute Category: Medical Code(s): J18.9 - Pneumonia, unspecified organism (2) Metastatic lung cancer (metastasis from lung to other site) Current visit: Yes Status: Acute Category: Medical Code(s): C34.90 - Malignant neoplasm of unspecified part of unspecified bronchus or lung (3) Acute exacerbation of chronic obstructive airways disease Current visit: No Status: Acute Category: Medical Code(s): J44.1 - Chronic obstructive pulmonary disease with (acute) exacerbation - Assessment and plan all Dx Assessment and Plan for all problems:: 1. Continue antibiotics of Levaquin and cefepime to cover possibility of pseudomonal pneumonia. Urine has grown E. coli which is sensitive to the cefepime. 2. Oncology consult today
--- NOTE | 2018-09-22 13:18 | Consult Report ---
*Admission Date: 09/19/18 *History of present illness: 83 yo aam with remote h/o lung cancer. now with enlarging liver mass. I recent ly saw him as outpt and we discussed option of further eval of mass with liver bx for which he was agreeable to. he however is now admitted with progressive weakness, pna, and UTI. he is on abx. he has not had liver bx. he did have an updated ct of abdomen and compared to ct scan 1 month ago there as been significant progression. I discussed this with him and his friend at length today. he states he is feeling better but very weak. [facility] History Medical History: Reports:: Anxiety, Cancer, Chronic Obstructive Pulmonary Disease (COPD), Gastroesophageal Reflux Disease(GERD), Hyperlipidemia, Hypertension Denies:: Diabetes Mellitus Type 1, Diabetes Mellitus Type 2, MRSA Other Surgeries: Yes: Cancer Surgery, Colonoscopy, Other Amputation: No Fractures: No - *Social History Educational Level: Attended High School Smoking Status: Current every day smoker Tobacco Type: cigarettes # Packs/Day (cigarettes): 1 Alcohol Intake: never Alcohol Intake Frequency:: other Substance Use Type: denies use Occupational Status: retired Housing: apartment Household Members: none - Psychiatric History Expresses thoughts of harming self/others: None Suicide Plan Description: No Plan Pschychiatric History:: Reports:: Anxiety *Family Hx:: Cancer Review of Systems - *Respiratory Reports cough, Reports shortness of breath Meds Home Medications Medication Instructions Recorded Confirmed Type Famotidine [Acid Design Architect] 20 mg PO BID 03/29/18 09/20/18 History Tamsulosin HCl [Flomax 0.4mg 0.4 mg PO HS 06/03/18 09/20/18 History capsule] Albuterol Sulfate [Albuterol 2.5 mg IH QID 08/17/18 09/20/18 History 0.083% 2.5mg/3mL neb] Buspirone HCl [Buspar 5mg tablet] 7.5 mg PO BID 09/20/18 09/20/18 History Fluticasone/Umeclidin/Vilanter 1 each IH DAILY 09/20/18 09/20/18 History [Trelegy Ellipta 100-62.5-25] Lactulose [Lactulose 10gm/15ml 20 gm PO DAILYP PRN 09/20/18 09/20/18 History Oral Soln] Roflumilast [Daliresp] 500 mcg PO DAILY 09/20/18 09/20/18 History Allergies Allergy/AdvReac Type Severity Reaction Status Date / Time tramadol [TRAMADOL] Allergy Unknown HIVES/ITCHI Verified 09/09/18 11:17 NG Exam Vital signs and Labs for Last 24 Hours: Temp Pulse Resp BP Pulse Ox 97.6 F 137 H 21 137/73 98 09/22/18 12:00 09/22/18 12:00 09/22/18 12:00 09/22/18 12:00 09/22/18 12:00 I & O for Last 24 hours: Intake & Output 09/20/18 09/21/18 09/22/18 09/23/18 11:59 11:59 11:59 11:59 Intake Total 590 / 590 200 / 200 420 / 420 Output Total 500 / 500 950 / 950 725 / 725 Balance 90 / 90 -750 / -750 -305 / -305 Weight 124 lb 123 lb 15.984 oz Microbiology Reports for the Last 24 Hours: Microbiology 09/19/18 15:10 Urine,Catheterized Urine Culture - Preliminary Escherichia coli Staphylococcus haemolyticus Gram Positive Cocci 09/20/18 00:15 Sputum - Expectorated Sputum Gram Stain - Final 09/20/18 00:15 Sputum - Expectorated Sputum Sputum Culture - Preliminary 09/19/18 16:43 Blood Blood Culture - Preliminary NO GROWTH AFTER 48 HOURS 09/19/18 16:43 Blood Blood Culture - Preliminary NO GROWTH AFTER 48 HOURS - *Routine Respiratory Exam Present: decreased breath sounds Internal Medicine - CN: Reslt - Labs CBC & Chem 7: 09/21/18 07:20 09/21/18 07:20 - ABG Interpretation ABG results: 09/19/18 17:30 ABG pH 7.41 ABG pCO2 43.5 ABG pO2 58.1 L ABG HCO3 26.9 H ABG Total CO2 28.2 H ABG O2 Saturation 89 L ABG Base Excess 2.2 Assessment and Plan (1) Pneumonia Current visit: Yes Status: Acute Category: Medical Code(s): J18.9 - Pneumonia, unspecified organism (2) Metastatic lung cancer (metastasis from lung to other site) Current visit: Yes Status: Acute Category: Medical Code(s): C34.90 - Malignant neoplasm of unspecified part of unspecified bronchus or lung (3) Acute exacerbation of chronic obstructive airways disease Current visit: No Status: Acute Category: Medical Code(s): J44.1 - Chronic obstructive pulmonary disease with (acute) exacerbation - Assessment and plan all Dx Assessment and Plan for all problems:: remote h/o lung cancer now with enlarging liver mass- not biopsed but clinically appears to aggressive malignancy with increased growth over past month. I explained to him this is not curable. I also discussed that he is not strong enough for treatment and that a biopsy is not warranted as we are not able to offer treatment. we discussed end of life goals and I have recommended hospice. he is agreeable. we will consult them. thank you for notification of pt admission. please call with questions. Kathy Khalil MD
--- NOTE | 2018-09-23 07:26 | Progress Note ---
Internal Medicine - PN: Subj *Date: 09/23/18 *Time: 07:24 Interval history: Patient had a very long night. He was awake most of the night screaming out for help according to nursing staff. He was given Ativan which initially sedated the patient and he was able to rest. However after awakening from the Ativan he became rather agitated. Morphine did not have the same response as Ativan. Patient was seen by Dr. Khalil yesterday although the patient does not recall this. Dr. Khalil is recommended hospice. Hospice will begin to see the patient today. Exam Vital signs and Labs for Last 24 Hours: Temp Pulse Resp BP Pulse Ox 97.5 F L 113 H 22 144/90 H 99 09/23/18 04:00 09/23/18 04:00 09/23/18 04:00 09/23/18 04:00 09/23/18 04:00 I & O for Last 24 hours: Intake & Output 09/20/18 09/21/18 09/22/18 09/23/18 11:59 11:59 11:59 11:59 Intake Total 590 / 590 200 / 200 420 / 420 700 / 700 Output Total 500 / 500 950 / 950 725 / 725 475 / 475 Balance 90 / 90 -750 / -750 -305 / -305 225 / 225 Weight 124 lb 123 lb 15.984 oz Microbiology Reports for the Last 24 Hours: Microbiology 09/19/18 15:10 Urine,Catheterized Urine Culture - Preliminary Escherichia coli Staphylococcus haemolyticus Gram Positive Cocci 09/20/18 00:15 Sputum - Expectorated Sputum Gram Stain - Final 09/20/18 00:15 Sputum - Expectorated Sputum Sputum Culture - Preliminary Narrative: Patient appears comfortable. Breath sounds are distant but clear in the right lung with rhonchi in the left lung heard both anteriorly and at the base Assessment and Plan (1) Pneumonia Current visit: Yes Status: Acute Category: Medical Code(s): J18.9 - Pneumonia, unspecified organism (2) Metastatic lung cancer (metastasis from lung to other site) Current visit: Yes Status: Acute Category: Medical Code(s): C34.90 - Malignant neoplasm of unspecified part of unspecified bronchus or lung (3) Acute exacerbation of chronic obstructive airways disease Current visit: No Status: Acute Category: Medical Code(s): J44.1 - Chronic obstructive pulmonary disease with (acute) exacerbation (4) E. coli UTI Current visit: Yes Status: Acute Category: Medical Code(s): N39.0 - Urinary tract infection, site not specified; B96.20 - Unspecified Escherichia coli [E. coli] as the cause of diseases classified elsewhere - Assessment and plan all Dx Assessment and Plan for all problems:: Patient has reached maximum medical improvement. Hospice will come to evaluate the patient today and I believe the patient would best be served by treatment at the hospice care center to get symptoms under control including his agitation. Patient does not really have any memory of the events of last night. He does not recall being visited by the oncologist yesterday. We will await hospice consult
--- NOTE | 2018-09-23 13:25 | Discharge Summary ---
General - General Admission date:: 09/19/18 Discharge date: 09/23/18 HPI HPI: 83-year-old male with metastatic lung cancer came to the emergency department for "blind staggers". He later clarifies that his vision was blurry and it was causing him to stagger around. He has known lung cancer with metastases to the liver and is scheduled to see local oncologist, Dr. Khalil, on September 21. Patient continues to smoke cigarettes but today when interviewed states his breathing is about the same as always. He denied any significant change in his shortness of breath. He has a cough that is productive of white sputum. He denies fevers or chills. Workup in the emergency department revealed persistence of a left lower lobe infiltrate. The "left lower lobe infiltrate" has been present for the last month. CT scan of the chest performed on revealed this infiltrate. Patient has been on antibiotics as well as steroids. Further review of his chart indicates previously seen left lower lobe pneumonias likely on top of scarring in the left lung base going back to the spring of this year. Patient also complained of abdominal pain as a cause for his visit to the ER. 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 Patient has been admitted for observation. This will be his third admission to the hospital within the last 30 days. Hospital Course Hospital Course: Patient wasa admitted and placed on cefepime and levaquin due to a history of Pseudomonas. Solu-medrol IV was used for COPD exacerbation along with Duonebs. Patient improved only slightly over the course of a 5 day hospitalization. He has known underlying malignancy and plan had been for potential workup of his malignancy. However he has had significant decline in overall health. Oncology was consulted and Dr. Khalil felt like Hospice was most appropriate. Hospice was consulted and agreed to accept the patient to the Hospice care Center. Patient did develop periodic agitation and ativan was used. This increased agitation slightly so Haldol was used prior to transfer to the Hosp. Care Center. Objective Vital signs: Temp Pulse Resp BP Pulse Ox 97.4 F L 131 H 22 124/64 97 09/23/18 12:00 09/23/18 12:00 09/23/18 12:04 09/23/18 12:00 09/23/18 12:00 Results Labs on day of discharge: Preliminary micro results at discharge 09/20/18 00:15 Sputum Culture - Preliminary Sputum - Expectorated Sputum Gram Positive Cocci 09/19/18 15:10 Urine Culture - Preliminary Urine,Catheterized Escherichia coli Staphylococcus haemolyticus Gram Positive Cocci 09/19/18 16:43 Blood Culture - Preliminary Blood NO GROWTH AFTER 48 HOURS 09/19/18 16:43 Blood Culture - Preliminary Blood NO GROWTH AFTER 48 HOURS DS: Diagnosis - Discharge Diagnosis (1) Pneumonia Status: Acute (2) Metastatic lung cancer (metastasis from lung to other site) Status: Acute (3) Acute exacerbation of chronic obstructive airways disease Status: Acute (4) E. coli UTI Status: Acute Discharge Plan - Patient Discharge Instructions ACTIVITY: Continue current activity DIET: continue same diet Patient Instructions: Chronic Obstructive Pulmonary Disease, Escherichia coli Infection, DI for Pneumonia -- Adult - Follow up Plan Disposition: Hospice - Medical Facility Home Medications: Home Medications Medication Instructions Recorded Confirmed Type Famotidine [Acid Anode Worker] 20 mg PO BID 03/29/18 09/20/18 History Tamsulosin HCl [Flomax 0.4mg 0.4 mg PO HS 06/03/18 09/20/18 History capsule] Albuterol Sulfate [Albuterol 2.5 mg IH QID 08/17/18 09/20/18 History 0.083% 2.5mg/3mL neb] Buspirone HCl [Buspar 5mg tablet] 7.5 mg PO BID 09/20/18 09/20/18 History Fluticasone/Umeclidin/Vilanter 1 each IH DAILY 09/20/18 09/20/18 History [Trelegy Ellipta 100-62.5-25] Lactulose [Lactulose 10gm/15ml 20 gm PO DAILYP PRN 09/20/18 09/20/18 History Oral Soln] Roflumilast [Daliresp] 500 mcg PO DAILY 09/20/18 09/20/18 History Prescriptions/Medication Reconciliation: Continue ipratropium-albuterol 0.5 mg-3 mg(2.5 mg base)/3 mL nebulization soln 3 ml INHALATION TID #90 ml omeprazole magnesium 20 mg tablet,delayed release 20 mg PO DAILY #30 tab amlodipine 5 mg tablet 5 mg PO DAILY #90 tab atorvastatin 10 mg tablet 10 mg PO HS #90 tab ondansetron HCl 4 mg tablet 4 mg PO Q4H PRN 5 Days #30 tab PRN Reason: nausea and vomiting hydrocodone 5 mg-acetaminophen 325 mg tablet 1 tab PO Q6HP PRN #180 tab PRN Reason: Breakthru Moderate Pain lorazepam 0.5 mg tablet 0.5 mg PO BID PRN #60 tab PRN Reason: anxiety metoprolol tartrate 50 mg tablet 50 mg PO BID #60 tab gabapentin 400 mg capsule 400 mg PO TID 30 Days #90 cap Famotidine [Acid Anode Worker] 20 mg PO BID Potassium Chloride [Klor-Con 10mEq tab] 10 meq PO DAILY tablet.er Roflumilast [Daliresp] 500 mcg PO DAILY Tamsulosin HCl [Flomax 0.4mg capsule] 0.4 mg PO HS Albuterol Sulfate [Albuterol 0.083% 2.5mg/3mL neb] 2.5 mg IH QID Buspirone HCl [Buspar 5mg tablet] 7.5 mg PO BID Fluticasone/Umeclidin/Vilanter [Trelegy Ellipta 100-62.5-25] 1 each IH DAILY Lactulose [Lactulose 10gm/15ml Oral Soln] 20 gm PO DAILYP PRN PRN Reason: Constipation
== END 2018-09-23 15:59 | disposition hospice, home (50) ==
LOC: 2ND 14:09 → ER 14:09 → OBSVTOIN 17:49 → 2ND 17:51
PROVIDERS: ADMIT Family Medicine; ATTEND Family Medicine
CPT/HCPCS: 36415; 71010; 71045; 74176; 80048; 80053; 80076; 81001; 82803; 83605; 83690; 84484; 85007; 85025; 85610; 85730; 87040; 87070; 87077; 87086; 87088; 87186; 87205; 87275; 87276; 93005; 94640; 94761; 96365; 96366; 96375; 97162; 99285; J1956; J2405; S0119